=== PATIENT | male | born 1960 | race Caucasian/White ===

== ENCOUNTER 2016-05-19 17:24 | Emergency (ER) | payer MEDICARE ==
[2016-05-19 17:24] VITALS: BMI 25.2
[2016-05-19 20:57] VITALS: RESP 18; O2SAT 98
--- NOTE | 2016-05-19 21:37 | ED PDOC ---
Arrival/HPI - General Chief Complaint: Alcohol Ingestion Time Seen by Provider: 05/19/16 17:49 Historian: Patient - History of Present Illness Narrative History of Present Illness (Text): 05/19/16 21:32 55 y.o. male who was bib EMS because he was found sleeping outside. There was a report of possible intoxication, but the patient denies any alcohol use. The patient however does admit that he got an ambien from someone and fell asleep. He denies any fall or pain or injury or cp or sob or abd pain or n/v or SI. Past Medical History - Infectious Disease Hx of Infectious Diseases: None - Tetanus Immunization Tetanus Immunization: Unknown - Past Medical History Past Medical History: No Previous - Cardiac Hx Cardiac Disorders: No Hx Hypertension: No - Pulmonary Hx Tuberculosis: No - Neurological HX Cerebrovascular Accident: No - Renal Hx Renal Disorder: No - Endocrine/Metabolic Hx Endocrine Disorders: No - Hematological/Oncological Hx Cancer: No - Integumentary Hx Dermatological Disorder: No - Musculoskeletal/Rheumatological Hx Back Pain: Yes Hx Falls: No Other/Comment: R SHOULDER INJ X 2 WEEKS, BACK PAIN SINCE 2006, R KNEE PAIN X 2 MONTHS. - Gastrointestinal Hx Gastrointestinal Disorders: No - Genitourinary/Gynecological Hx Sexually Transmitted Diseases: No - Psychiatric Hx Psychophysiologic Disorder: No Hx Depression: No Hx Emotional Abuse: No Hx Physical Abuse: No Hx Substance Use: Yes (pain pills) - Past Surgical History Past Surgical History: Unable to Obtain - Surgical History Hx Orthopedic Surgery: Yes (back x 2) - Anesthesia Hx Anesthesia: Yes Hx Anesthesia Reactions: No Hx Malignant Hyperthermia: No - Suicidal Assessment Feels Threatened In Home Enviroment: No Family/Social History Family/Social History: No Known Family HX Smoking Status: Heavy Smoker > 10 Cigarettes Daily Hx Alcohol Use: No Hx Substance Use: Yes (pain pills) Hx Substance Use Treatment: No Allergies/Home Meds Allergies/Adverse Reactions: Allergies No Known Allergies Allergy (Verified 05/19/16 18:07) Review of Systems - Review of Systems Respiratory: absent: SOB Cardiovascular: absent: Chest Pain Gastrointestinal: absent: Abdominal Pain, Nausea, Vomiting Genitourinary Male: absent: Dysuria Neurological: absent: Headache, Dizziness, Focal Weakness Psychiatric: absent: Suicidal Ideation Physical Exam Vital Signs Pulse Resp BP Pulse Ox 05/19/16 20:45 88 18 131/92 H 98 05/19/16 18:06 80 20 106/68 95 Temperature: Afebrile Blood Pressure: Normal Pulse: Regular Respiratory Rate: Normal Appearance: Positive for: Well-Appearing, Non-Toxic, Comfortable Pain Distress: None Mental Status: Positive for: other (somnolent) Finger Stick Blood Glucose: 107 - Systems Exam Head: Present: Atraumatic, Normocephalic Pupils: Present: PERRL Conjunctiva: Present: Normal Mouth: Present: Moist Mucous Membranes Pharnyx: Present: Normal. No: ERYTHEMA, EXUDATE Neck: Present: Normal Range of Motion Respiratory/Chest: Present: Clear to Auscultation, Good Air Exchange. No: Respiratory Distress, Accessory Muscle Use Cardiovascular: Present: Regular Rate and Rhythm, Normal S1, S2. No: Murmurs Abdomen: Present: Normal Bowel Sounds. No: Tenderness, Distention, Peritoneal Signs Back: Present: Normal Inspection Upper Extremity: Present: Normal Inspection. No: Cyanosis, Edema Lower Extremity: Present: Normal Inspection. No: Edema Neurological: Present: GCS=15, CN II-XII Intact, Speech Normal Skin: Present: Warm, Dry, Normal Color. No: Rashes Psychiatric: Present: Oriented x 3. No: Suicidal Ideation Medical Decision Making ED Course and Treatment: 05/19/16 21:34 Patient is sleepy here after admittedly taken ambien. Previous records report etoh abuse, but there is no AOB and previous etoh level checks were always negative. Patient just had a negative brain CT on 05/16 and unremarkable labs. No indication for repeat. He is now awake, alert, and oriented x 3 and walking steadily and is safe for discharge. Unable to reach family by phone for additional discussion. - Lab Interpretations Lab Results: Lab Results 05/19/16 18:04: POC Glucose (mg/dL) 107 Disposition/Present on Arrival - Present on Arrival Any Indicators Present on Arrival: No History of DVT/PE: No History of Uncontrolled Diabetes: No Urinary Catheter: No History of Decub. Ulcer: No History Surgical Site Infection Following: None - Disposition Have Diagnosis and Disposition been Completed?: Yes Diagnosis: Substance abuse Disposition: HOME/ ROUTINE Disposition Time: 22:00 Patient Plan: Discharge Condition: GOOD Additional Instructions: Avoid any drug use at all. Follow up with your doctor. Return to the emergency department if any new concerning symptoms. Referrals: [facility] [Outside] - [place] up with [place] [facility] [place] [facility] [place] [facility] [place] - Follow up with primary
[2016-05-19 22:21] VITALS: BP 122/62; PULSE 80
== END 2016-05-19 22:15 | disposition home or self-care (01) ==
LOC: ED 17:24
DX: F19.10 Other psychoactive substance abuse, uncomplicated (principal); F17.210 Nicotine dependence, cigarettes, uncomplicated

== ENCOUNTER 2016-06-16 13:56 | Emergency (ER) | payer MEDICARE ==
[2016-06-16 14:06] VITALS: BMI 25.1
[2016-06-16 14:56] LABS: ADD MANUAL DIFF? NO
[2016-06-16 15:03] LABS: BASO # 0.08 K/mm3 (0.0-2.0); BASO % 1.6 % (0.0-3.0); EOS # 0.2 (0.0-0.7); EOS % 3.2 % (1.5-5.0); GRAN # 2.21 (1.4-6.5); HEMATOCRIT 33.8 % (42.0-52.0); LYMPH # 2.1 (1.2-3.4); MEAN CELL VOLUME 63.1 fL (80.0-105.0); MEAN CORPUSCULAR HEMOGLOBIN 18.5 pg (25.0-35.0); MEAN CORPUSCULAR HGB CONC 29.3 g/dl (31.0-37.0); MONO # 0.5 (0.1-0.6); MONO % 10.2 % (1.0-6.0); PLATELET COUNT 280 10^3/uL (120.0-450.0); RED CELL DISTRIBUTION WIDTH 25.5 % (11.5-14.5)
[2016-06-16 15:06] LABS: URINE BILIRUBIN NEGATIVE (NEGATIVE); URINE BLOOD NEGATIVE (NEGATIVE); URINE GLUCOSE (UA) NEGATIVE (NEGATIVE); URINE KETONE NEGATIVE (NEGATIVE); URINE LEUKOCYTE ESTERASE NEGATIVE Leu/uL (NEGATIVE); URINE PROTEIN NEGATIVE mg/dL (<30 mg/dL); URINE UROBILINOGEN 0.2 E.U./dL (<1 E.U./dL)
[2016-06-16 15:07] LABS: URINE APPEARANCE CLEAR (CLEAR); URINE COLOR LIGHT YELLOW (YELLOW)
[2016-06-16 15:11] LABS: ALB/GLOB RATIO 1.2 (1.1-1.8); ALKALINE PHOSPHATASE 83 U/L (38-133); ALT/SGPT 40 U/L (7-56); AST/SGOT 39 U/L (15-59); BILIRUBIN,TOTAL 0.6 mg/dL (0.2-1.3); BLOOD UREA NITROGEN 15 mg/dL (7-21); CALCIUM 9.4 mg/dL (8.4-10.5); CARBON DIOXIDE 25 mmol/L (21-33); CHLORIDE 106 mmol/L (98-107); GFR AFRICAN-AMERICAN > 60; GLUCOSE,RANDOM 87 mg/dL (70-110); POTASSIUM 4.2 mmol/L (3.6-5.0); SODIUM 138 mmol/L (132-148); TOTAL PROTEIN 7.8 g/dL (5.8-8.3)
[2016-06-16 15:34] LABS: TROPONIN I < 0.01 ng/mL
[2016-06-16 16:13] VITALS: BP 126/85; TEMP 98.3
--- NOTE | 2016-06-16 16:25 | CT ---
PROCEDURE: CT HEAD WITHOUT CONTRAST. HISTORY: fell COMPARISON: Comparison made with CT scan brain 07/23/2015 TECHNIQUE: Axial computed tomography images were obtained through the head/brain without intravenous contrast. Radiation dose: Total exam DLP = 847.34 mGy-cm. This CT exam was performed using one or more of the following dose reduction techniques: Automated exposure control, adjustment of the mA and/or kV according to patient size, and/or use of iterative reconstruction technique. FINDINGS: HEMORRHAGE: No acute parenchymal, subarachnoid or extra-axial hemorrhage. BRAIN: Re- demonstrated are moderate to fairly significant bilateral inferior frontal pole and partially cystic encephalomalacia changes consistent with sequela of old trauma. Gliotic changes extending posteriorly into the parent frontal horn white matter. Mild ex vacuo dilatation of the anterior margins of both frontal horns. Mild generalized volume loss. VENTRICLES: No obstructive hydrocephalus. CALVARIUM: No acute calvarial fractures. There appears to be a small irregularity in the right frontal calvarium that most likely represents old right mamta hole ; clinical correlation with surgical history. . PARANASAL SINUSES: Unrema mild mucosal thickening seen within the right maxillary sinus as well as multiple ethmoid air cells. . MASTOID AIR CELLS: Unremarkable as visualized. No inflammatory changes. OTHER FINDINGS: Bilateral cataract surgery. IMPRESSION: No acute intracranial hemorrhage. No change bilateral inferior frontal pole partially cystic encephalomalacia changes consistent with sequela of old trauma. Mild ex vacuo dilatation of the anterior margins of the frontal horns and mild generalized volume loss. Probable frontal mamta hole. No acute fracture seen.
[2016-06-16 18:39] VITALS: PULSE 79; RESP 18; O2SAT 96
--- NOTE | 2016-06-16 19:07 | ED PDOC ---
Arrival/HPI - General Chief Complaint: Trauma Time Seen by Provider: 06/16/16 14:07 Historian: Patient - History of Present Illness Narrative History of Present Illness (Text): 06/16/16 19:13 A 55 year old male, whose past medical history includes prescribed medication abuse (Tramadol and Gabapentin), brought to the emergency department by EMS because a friend noted that he took ten Tramadols earlier today. Patient admits to taking medications earlier but denies any suicidal ideation. According to EMS , patient fell and it is unclear whether patient hit his head. He denies any SI or headache or cp or sob or abd pain or vomiting. He denies any etoh use. He reports chronic shoulder and leg pain due to previous surgeries when he was young but no acute injuries. Time/Duration: Other (earlier today) Symptom Onset: Sudden Symptom Course: Unchanged Activities at Onset: Rest Context: Home Associated Symptoms (Text): none Past Medical History - Provider Review Nursing Documentation Reviewed: Yes - Infectious Disease Hx of Infectious Diseases: None - Tetanus Immunization Tetanus Immunization: Unknown - Past Medical History Past Medical History: No Previous - Cardiac Hx Cardiac Disorders: No Hx Hypertension: No - Pulmonary Hx Respiratory Disorders: No Hx Tuberculosis: No - Neurological Hx Neurological Disorder: No HX Cerebrovascular Accident: No - HEENT Hx HEENT Disorder: No - Renal Hx Renal Disorder: No - Endocrine/Metabolic Hx Endocrine Disorders: No - Hematological/Oncological Hx Cancer: No - Integumentary Hx Dermatological Disorder: No - Musculoskeletal/Rheumatological Hx Back Pain: Yes Hx Falls: No Other/Comment: BACK PAIN SINCE 2006, R KNEE PAIN - Gastrointestinal Hx Gastrointestinal Disorders: No - Genitourinary/Gynecological Hx Sexually Transmitted Diseases: No - Psychiatric Hx Psychophysiologic Disorder: No Hx Depression: No Hx Emotional Abuse: No Hx Physical Abuse: No Hx Substance Use: Yes (pain pills) - Past Surgical History Past Surgical History: Unable to Obtain - Surgical History Hx Orthopedic Surgery: Yes (back x 2) - Anesthesia Hx Anesthesia: Yes Hx Anesthesia Reactions: No Hx Malignant Hyperthermia: No - Suicidal Assessment Feels Threatened In Home Enviroment: No Family/Social History - Physician Review Nursing Documentation Reviewed: Yes Family/Social History: No Known Family HX Smoking Status: Heavy Smoker > 10 Cigarettes Daily Hx Alcohol Use: No Hx Substance Use: Yes (pain pills) Hx Substance Use Treatment: No Allergies/Home Meds Allergies/Adverse Reactions: Allergies No Known Allergies Allergy (Verified 06/16/16 14:09) Home Medications: Home Meds Medication Instructions Recorded Confirmed Tramadol HCl [Ultram] 50 mg PO BID 06/16/16 06/16/16 Review of Systems - Physician Review All systems were reviewed & negative as marked: Yes - Review of Systems Constitutional: absent: Fevers Respiratory: absent: SOB Cardiovascular: absent: Chest Pain Gastrointestinal: absent: Abdominal Pain, Nausea, Vomiting Musculoskeletal: Other (chronic leg pain and shoulder pain) Neurological: absent: Headache, Dizziness, Focal Weakness Psychiatric: absent: Suicidal Ideation Physical Exam Vital Signs Reviewed: Yes Vital Signs Temp Pulse Resp BP Pulse Ox 06/16/16 18:00 79 18 96 06/16/16 16:12 98.3 F 89 16 126/85 98 06/16/16 13:58 98.9 F 99 H 18 119/76 96 Temperature: Afebrile Blood Pressure: Normal Pulse: Regular Respiratory Rate: Normal Appearance: Positive for: Well-Appearing, Non-Toxic, Comfortable Pain Distress: None Mental Status: Positive for: Alert and Oriented X 3 - Systems Exam Head: Present: Atraumatic, Normocephalic Pupils: Present: PERRL Conjunctiva: Present: Normal Mouth: Present: Moist Mucous Membranes Pharnyx: Present: Normal. No: ERYTHEMA, EXUDATE Neck: Present: Normal Range of Motion Respiratory/Chest: Present: Clear to Auscultation, Good Air Exchange. No: Respiratory Distress, Accessory Muscle Use Cardiovascular: Present: Regular Rate and Rhythm, Normal S1, S2. No: Murmurs Abdomen: Present: Normal Bowel Sounds. No: Tenderness, Distention, Peritoneal Signs Upper Extremity: Present: Normal Inspection. No: Cyanosis, Edema Lower Extremity: Present: Normal Inspection. No: Edema Neurological: Present: GCS=15, CN II-XII Intact, Speech Normal Skin: Present: Warm, Dry, Normal Color. No: Rashes Psychiatric: Present: Alert, Oriented x 3, Other (drowsy but fully arousable) Medical Decision Making ED Course and Treatment: 06/16/16 19:18 Impression: 55 year old male, prescribed medication abuse, took 10 Tramadol earlier today and possible fall; no evidence of head injury. Plan: -- EKG -- CT brain -- Urinalysis -- Labs -- Reassess and disposition Prior Visits: Notes and results from previous visits were reviewed. On 05/19/16 reported to emergency department by EMS because found sleeping outside , possible intoxication, but patient denied any alcohol use. Patient reported having Ambien. Patient was advised to avoid drug use and follow up with doctor. Progress Notes: EKG: Ordered, reviewed, and independently interpreted the EKG. Rate : 98 BPM Rhythm : NSR Interpretation : Normal intervals, normal axis, No ST/T changes Comparison : No previous EKG for comparison. CT brain: Creator : Diallo Jean MD IMPRESSION: No acute intracranial hemorrhage. No change bilateral inferior frontal pole partially cystic encephalomalacia changes consistent with sequela of old trauma. Mild ex vacuo dilatation of the anterior margins of the frontal horns and mild generalized volume loss. Probable frontal mamta hole. No acute fracture seen. Patient initially reported taking Tramadol, but is currently saying he took Gabapentin. 06/16/16 19:36 Labs and imaging are unremarkable as are vitals and EKG. Patient is now fully awake and alert and ambulatory with steady gait with no SI or acute complaints. No indication to keep further in the ED - will d/c to f/u pmd and advised to stop abusing his medications. - Lab Interpretations Lab Results: 06/16/16 14:26 06/16/16 14:26 Lab Results 06/16/16 14:26: Alcohol, Quantitative < 10 06/16/16 14:26: Salicylates < 1 L, Acetaminophen < 10.0 L 06/16/16 14:26: Urine Opiates Screen Negative, Urine Methadone Screen Negative, Ur Barbiturates Screen Negative, Ur Phencyclidine Scrn Negative, Ur Amphetamines Screen Negative, U Benzodiazepines Scrn Negative, U Oth Cocaine Metabols Negative, U Cannabinoids Screen Negative 06/16/16 14:26: Sodium 138, Potassium 4.2, Chloride 106, Carbon Dioxide 25, Anion Gap 11, BUN 15, Creatinine 0.8, Est GFR ( Amer) > 60, Est GFR (Non- Af Amer) > 60, Random Glucose 87, Calcium 9.4, Total Bilirubin 0.6, AST 39, ALT 40, Alkaline Phosphatase 83, Lactate Dehydrogenase 451, Total Creatine Kinase 50 , Troponin I < 0.01, Total Protein 7.8, Albumin 4.2, Globulin 3.6, Albumin/ Globulin Ratio 1.2 06/16/16 14:26: Urine Color Light yellow, Urine Appearance Clear, Urine pH 6.0, Ur Specific [place] 1.010, Urine Protein Negative, Urine Glucose (UA) Negative, Urine Ketones Negative, Urine Blood Negative, Urine Nitrate Negative, Urine Bilirubin Negative, Urine Urobilinogen 0.2, Ur Leukocyte Esterase Negative 06/16/16 14:26: WBC 5.0, RBC 5.36, Hgb 9.9 L, Hct 33.8 L, MCV 63.1 L, MCH 18.5 L , MCHC 29.3 L, RDW 25.5 H, Plt Count 280, Gran % 44.0 L, Lymph % (Auto) 41.0 H, [place] % (Auto) 10.2 H, Eos % (Auto) 3.2, Baso % (Auto) 1.6, Gran # 2.21, Lymph # 2.1, [place] # 0.5, Eos # 0.2, Baso # 0.08 I have reviewed the lab results: Yes - RAD Interpretation Radiology Orders: 06/16/16 14:30 Brain [HEAD W/O CONTRAST] [CT] Stat - EKG Interpretation Interpreted by ED Physician: Yes Type: 12 lead EKG - Scribe Statement The provider has reviewed the documentation as recorded by the Scribe Tari Amador All medical record entries made by the Yesiibe were at my direction and personally dictated by me. I have reviewed the chart and agree that the record accurately reflects my personal performance of the history, physical exam, medical decision making, and the department course for this patient. I have also personally directed, reviewed, and agree with the discharge instructions and disposition. Disposition/Present on Arrival - Present on Arrival Any Indicators Present on Arrival: No History of DVT/PE: No History of Uncontrolled Diabetes: No Urinary Catheter: No History of Decub. Ulcer: No History Surgical Site Infection Following: None - Disposition Have Diagnosis and Disposition been Completed?: Yes Diagnosis: Drug overdose Disposition: HOME/ ROUTINE Disposition Time: 19:10 Patient Plan: Discharge Condition: GOOD Additional Instructions: Stop abusing your medications. Follow up with your primary care doctor. Return to the emergency department if any new concerning symptoms. Referrals: Diallo West MD [Staff Provider] - Follow up with primary
--- NOTE | 2016-06-17 22:15 | CARD ---
APPROVED REPORT EKG Measurement Heart [id number] <Conclusion> Normal sinus rhythm Normal ECG
== END 2016-06-16 19:30 | disposition home or self-care (01) ==
LOC: ED 13:56
DX: T40.4X1A Poisoning by other synthetic narcotics, accidental (unintentional), initial encounter (principal); Y92.009 Unspecified place in unspecified non-institutional (private) residence as the place of occurrence of the external cause; F17.210 Nicotine dependence, cigarettes, uncomplicated
CPT/HCPCS: 70450; 80053; 81003; 82550; 83615; 84484; 85025; 93005; 99283; G0480

== ENCOUNTER 2016-08-08 11:09 | Observation (INO) | payer MEDICARE ==
[2016-08-08 11:22] VITALS: BMI 23.7
[2016-08-08] MEDS ORDERED: Ipratropium 0.02% Inhal Soln (0.5 mg/2.5 ml) UD IH STA (11:31)
[2016-08-08] MEDS ORDERED: guaiFENesin 200 mg/10 ml Syrup UD PO STA (11:31)
[2016-08-08] MEDS ORDERED: Levalbuterol 1.25 MG/3 ML Inhal Soln UD IH STA ×2 (11:31→11:33)
--- NOTE | 2016-08-08 11:47 | ED PDOC ---
Arrival/HPI - General Chief Complaint: Altered Mental Status Time Seen by Provider: 08/08/16 11:12 Historian: Patient, EMS - History of Present Illness Narrative History of Present Illness (Text): 08/08/16 11:49 A 56 year old male, whose past medical history includes chronic back pain, Gabapentin and Tramadol abuse, brought in by EMS. According to EMS, patient was found by a house on [facility] and appeared to be trying to enter a house, claiming that he lived there. Home friend of the court called police. Upon arrival, EMS found patient confused, thinking he lived at that house. No trauma. Patient denies taking any Tramadol, Ambien, Gabapentin, Oxycodone or alcohol. Patient insists he didn't take any medications. Here in emergency department, patient reports to chronic back pain with no changes but denies any chest pain, shortness of breath, abdominal pain, nausea, vomiting, headache or any other complaints at this time. Symptom Onset: Sudden Symptom Course: Unchanged Activities at Onset: Light Context: Street Past Medical History - Provider Review Nursing Documentation Reviewed: Yes - Infectious Disease Hx of Infectious Diseases: None - Tetanus Immunization Tetanus Immunization: Unknown - Past Medical History Past Medical History: No Previous - Cardiac Hx Cardiac Disorders: No Hx Hypertension: No - Pulmonary Hx Respiratory Disorders: No Hx Tuberculosis: No - Neurological Hx Neurological Disorder: No - HEENT Hx HEENT Disorder: No - Renal Hx Renal Disorder: No - Endocrine/Metabolic Hx Endocrine Disorders: Yes Hx Diabetes Mellitus Type 2: Yes - Hematological/Oncological Hx Blood Disorders: No - Integumentary Hx Dermatological Disorder: No - Musculoskeletal/Rheumatological Hx Musculoskeletal Disorders: Yes Hx Back Pain: Yes Hx Falls: No Other/Comment: BACK PAIN SINCE 2006, R KNEE PAIN - Gastrointestinal Hx Gastrointestinal Disorders: No - Genitourinary/Gynecological Hx Genitourinary Disorders: No Hx Sexually Transmitted Diseases: No - Psychiatric Hx Psychophysiologic Disorder: No Hx Depression: No Hx Substance Use: No (pt denies) - Past Surgical History Past Surgical History: Unable to Obtain - Surgical History Hx Orthopedic Surgery: Yes (back x 2) - Anesthesia Hx Anesthesia: Yes Hx Anesthesia Reactions: No Hx Malignant Hyperthermia: No - Suicidal Assessment Feels Threatened In Home Enviroment: No Family/Social History - Physician Review Nursing Documentation Reviewed: Yes Family/Social History: No Known Family HX Smoking Status: Heavy Smoker > 10 Cigarettes Daily Hx Alcohol Use: No (pt denies) Hx Substance Use: No (pt denies) Hx Substance Use Treatment: No Allergies/Home Meds Allergies/Adverse Reactions: Allergies No Known Allergies Allergy (Verified 08/08/16 11:19) Home Medications: Home Meds Medication Instructions Recorded Confirmed Ambien 07/04/16 Gabapentin 600 mg PO Q6 07/04/16 07/04/16 traMADol 07/04/16 oxyCODONE [oxyCODONE Immediate 08/08/16 Release Tab] Review of Systems - Physician Review All systems were reviewed & negative as marked: Yes - Review of Systems Respiratory: absent: SOB Cardiovascular: absent: Chest Pain Gastrointestinal: absent: Abdominal Pain, Nausea, Vomiting Musculoskeletal: Back Pain (chronic) Neurological: absent: Headache Physical Exam Vital Signs Reviewed: Yes Vital Signs Temp Pulse Resp BP Pulse Ox 08/08/16 12:16 96 H 16 129/91 H 96 08/08/16 11:19 98.4 F 104 H 16 132/85 92 L Temperature: Afebrile Blood Pressure: Normal Pulse: Tachycardic Respiratory Rate: Normal Appearance: Positive for: Ill-Appearing Pain Distress: None Mental Status: Positive for: Alert and Oriented X 3, other (mumbling speech) Finger Stick Blood Glucose: 182 - Systems Exam Head: Present: Atraumatic, Normocephalic Pupils: Present: PERRL Conjunctiva: Present: Normal Mouth: Present: Moist Mucous Membranes Pharnyx: Present: Normal. No: ERYTHEMA Neck: Present: Normal Range of Motion Respiratory/Chest: Present: Wheezes (at bases), Rhonchi (diffuse). No: Respiratory Distress, Accessory Muscle Use Cardiovascular: Present: Regular Rate and Rhythm, Normal S1, S2. No: Murmurs Abdomen: Present: Normal Bowel Sounds. No: Tenderness, Distention, Peritoneal Signs Back: Present: Normal Inspection Upper Extremity: Present: Normal Inspection. No: Cyanosis, Edema Lower Extremity: Present: Normal Inspection. No: Edema Neurological: Present: GCS=15, CN II-XII Intact. No: Speech Normal (mumbling) Skin: Present: Warm, Dry, Normal Color. No: Rashes Psychiatric: Present: Alert, Oriented x 3, Normal Insight, Normal Concentration Medical Decision Making ED Course and Treatment: 08/08/16 11:38 Impression: A 56 year old male confused with possible Tramadol abuse. Differential Diagnosis included but are not limited to: Tramadol/substance abuse vs. hypercapnia vs. metabolic abnormality Plan: -- EKG -- chest xray -- labs -- Robitussin, Atrovent, Solumedrol, Xopenex -- Reassess and disposition Prior Visits: Notes and results from previous visits were reviewed. Patient last reported to the emergency department on 07/03/16 for evaluation of prescribed medication abuse. Progress Notes: 08/08/16 12:43 EKG: Ordered, reviewed, and independently interpreted the EKG. Rate : 97 BPM Rhythm : NSR Interpretation : Nonspecific T wave changes, normal intervals, normal axis Comparison : T wave changes slightly different from EKG on 07/03/16 08/08/16 12:23 chest xray Creator : Nydia Novak MD IMPRESSION: Bibasilar atelectasis. No lobar pneumonia. 08/08/16 13:45 Labs showing dehydration and hypoxia on on ABG. D-dimer sent and is pending. Creatinine is up to 1.7 from normal level. CXR read as noted - will need to be treated for asthmatic bronchitis vs COPD with nebs, steroids, and abx. Patient will need further observation in the hospital. Case was discussed with Dr. West who said to place on the hospitalist service. Case discussed with Dr. Chaidez for placement on the hospitalist service. - Lab Interpretations Lab Results: 08/08/16 12:00 08/08/16 12:00 Lab Results 08/08/16 12:00: Alcohol, Quantitative < 10 08/08/16 12:00: Sodium 142, Chloride 107, Potassium 4.6, Carbon Dioxide 25, Anion Gap 15, BUN 33 H, Creatinine 1.7 H, Est GFR ( Amer) 51, Est GFR ( Non-Af Amer) 42, Random Glucose 122 H, Calcium 9.9, Total Bilirubin 0.8, AST 35 , ALT 36, Alkaline Phosphatase 82, Lactate Dehydrogenase 415, Total Creatine Kinase 422 H, CK-MB (CK-2) 15.3 H, CK-MB (CK-2) % 3.6 H, Troponin I < 0.01, NT- Pro-B Natriuret Pep 222, Total Protein 8.4 H, Albumin 4.6, Globulin 3.8, Albumin /Globulin Ratio 1.2 08/08/16 12:00: PT 12.4 H, INR 1.15 H, APTT 27.1 08/08/16 12:00: WBC 10.6 D, RBC 5.95, Hgb 13.8 L, Hct 42.3, MCV 71.1 L, MCH 23.2 L, MCHC 32.6, RDW 28.0 H, Plt Count 255, Gran % 69.7 H, Lymph % (Auto) 17.4 L, Garden % (Auto) 12.2 H, Eos % (Auto) 0.2 L, Baso % (Auto) 0.5, Gran # 7.40 H, Lymph # 1.9, Garden # 1.3 H, Eos # 0.0, Baso # 0.05 08/08/16 11:45: pCO2 32 L, pO2 54.0 L, HCO3 19.8 L, ABG pH 7.40, ABG Total CO2 20.8 L, ABG O2 Saturation 88.2 L, ABG Base Excess -4.1 L, ABG Potassium 3.5 L, Sodium 140.0, Chloride 110.0 H, Glucose 118 H, Lactate 0.9, FiO2 21.0, Arterial Blood Potassium 3.5 L I have reviewed the lab results: Yes - RAD Interpretation Radiology Orders: 08/08/16 11:30 CHEST PORTABLE [RAD] Stat 08/08/16 13:08 Brain [HEAD W/O CONTRAST] [CT] Stat - EKG Interpretation Interpreted by ED Physician: Yes Type: 12 lead EKG - Medication Orders Current Medication Orders: Levofloxacin/Dextrose (Levaquin 750mg) 750 mg in 150 mls @ 100 mls/hr IVPB STAT STA Stop: 08/08/16 15:07 Discontinued Medications Guaifenesin (Robitussin) 400 mg PO ONCE STA Stop: 08/08/16 11:32 Last Admin: 08/08/16 11:56 Dose: 400 mg Sodium Chloride (Sodium Chloride 0.9%) 1,000 mls @ 999 mls/hr IV .Q1H1M STA Stop: 08/08/16 13:24 Last Admin: 08/08/16 12:46 Dose: 999 mls/hr Ipratropium [place] (Atrovent) 0.5 mg IH STAT STA Stop: 08/08/16 11:32 Last Admin: 08/08/16 11:56 Dose: 0.5 mg Levalbuterol HCl (Xopenex) 1.25 mg IH STAT STA Stop: 08/08/16 11:32 Last Admin: 08/08/16 11:56 Dose: 1.25 mg Levalbuterol HCl (Xopenex) 1.25 mg IH STAT STA Stop: 08/08/16 11:34 Last Admin: 08/08/16 11:57 Dose: 1.25 mg Methylprednisolone (Solu-Medrol) 125 mg IVP STAT STA Stop: 08/08/16 11:32 Last Admin: 08/08/16 11:56 Dose: 125 mg - Sneha Statement The provider has reviewed the documentation as recorded by the Sneha Amador All medical record entries made by the Sneha were at my direction and personally dictated by me. I have reviewed the chart and agree that the record accurately reflects my personal performance of the history, physical exam, medical decision making, and the department course for this patient. I have also personally directed, reviewed, and agree with the discharge instructions and disposition. Disposition/Present on Arrival - Present on Arrival Any Indicators Present on Arrival: No History of DVT/PE: No History of Uncontrolled Diabetes: No Urinary Catheter: No History of Decub. Ulcer: No History Surgical Site Infection Following: None - Disposition Have Diagnosis and Disposition been Completed?: Yes Diagnosis: Altered mental status, Prerenal azotemia, Hypoxia Disposition: HOSPITALIZED Disposition Time: 12:25 Patient Plan: Observation Condition: FAIR
[2016-08-08 11:51] LABS: ARTERIAL BLOOD GAS HCO3 19.8 mmol/L (21-28)
[2016-08-08 12:04] LABS: ADD MANUAL DIFF? NO
[2016-08-08 12:07] LABS: BASO # 0.05 K/mm3 (0.0-2.0); BASO % 0.5 % (0.0-3.0); EOS % 0.2 % (1.5-5.0); GRAN % 69.7 % (50.0-68.0); HEMATOCRIT 42.3 % (42.0-52.0); LYMPH # 1.9 (1.2-3.4); LYMPH % 17.4 % (22.0-35.0); MEAN CELL VOLUME 71.1 fL (80.0-105.0); MEAN CORPUSCULAR HEMOGLOBIN 23.2 pg (25.0-35.0); MEAN CORPUSCULAR HGB CONC 32.6 g/dl (31.0-37.0); MONO # 1.3 (0.1-0.6); MONO % 12.2 % (1.0-6.0); PLATELET COUNT 255 10^3/uL (120.0-450.0); WHITE BLOOD COUNT 10.6 10^3/ul (4.5-11.0)
[2016-08-08 12:18] LABS: INR 1.15 (0.93-1.08); PARTIAL THROMBOPLASTIN TIME 27.1 Seconds (23.7-30.8)
[2016-08-08 12:21] LABS: ALB/GLOB RATIO 1.2 (1.1-1.8); ALKALINE PHOSPHATASE 82 U/L (38-133); ALT/SGPT 36 U/L (7-56); AST/SGOT 35 U/L (15-59); BILIRUBIN,TOTAL 0.8 mg/dL (0.2-1.3); BLOOD UREA NITROGEN 33 mg/dL (7-21); CALCIUM 9.9 mg/dL (8.4-10.5); CARBON DIOXIDE 25 mmol/L (21-33); CHLORIDE 107 mmol/L (98-107); GFR AFRICAN-AMERICAN 51; GLUCOSE,RANDOM 122 mg/dL (70-110); POTASSIUM 4.6 mmol/L (3.6-5.0); SODIUM 142 mmol/L (132-148); TOTAL PROTEIN 8.4 g/dL (5.8-8.3)
--- NOTE | 2016-08-08 12:23 | RAD ---
HISTORY: alt ms, hypoxia COMPARISON: No prior. FINDINGS: LUNGS: There is bibasilar atelectasis. No focal consolidation. The lungs are well inflated. PLEURA: No significant pleural effusion identified, no pneumothorax apparent. CARDIOVASCULAR: Normal. OSSEOUS STRUCTURES: No significant abnormalities. VISUALIZED UPPER ABDOMEN: Normal. OTHER FINDINGS: None. IMPRESSION: Bibasilar atelectasis. No lobar pneumonia.
[2016-08-08] MEDS ORDERED: Sodium Chloride 0.9% 1,000 ML IV STA (12:24)
[2016-08-08 12:34] LABS: TROPONIN I < 0.01 ng/mL
[2016-08-08] MEDS ORDERED: levoFLOXacin 750 mg in D5W 750 MG/150 ML BAG IVPB STA (13:38)
--- NOTE | 2016-08-08 13:58 | CT ---
PROCEDURE: CT HEAD WITHOUT CONTRAST. HISTORY: Altered mental status COMPARISON: None available. TECHNIQUE: Axial computed tomography images were obtained through the head/brain without intravenous contrast. Radiation dose: Total exam DLP = 688.90 mGy-cm. This CT exam was performed using one or more of the following dose reduction techniques: Automated exposure control, adjustment of the mA and/or kV according to patient size, and/or use of iterative reconstruction technique. FINDINGS: HEMORRHAGE: No intracranial hemorrhage. BRAIN: There is redemonstration of cystic encephalomalacia in bilateral paramedian inferior frontal lobes and anterior temporal lobes, sequela of remote trauma. VENTRICLES: There is mild global parenchymal volume loss and proportionate enlargement of the ventricles and cortical sulci. CALVARIUM: The skull base and calvarium are normal. PARANASAL SINUSES: Predominantly clear. MASTOID AIR CELLS: Predominantly clear. OTHER FINDINGS: None. IMPRESSION: No acute intracranial abnormality. 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 Mild global parenchymal volume loss, slightly advanced for the patient's age.
[2016-08-08] MEDS ORDERED: guaiFENesin 100 mg/5 ml Syrup UD PO PRN (14:11)
[2016-08-08] MEDS: MethylPREDNISolone 40 mg Vial IVP SCH ×2 (14:46→22:06)
[2016-08-08] MEDS: Albuterol-Ipratrop 3 mg / 0.5 (3 ml) UD IH SCH ×4 (14:46→19:51)
[2016-08-08] MEDS: Sodium Chloride 0.9% 1,000 ML IV SCH (14:47)
--- NOTE | 2016-08-08 15:13 | CARD ---
APPROVED REPORT EKG Measurement Heart [id number] <Conclusion> Sinus rhythm with fusion complexes Nonspecific T wave abnormality Abnormal ECG
--- NOTE | 2016-08-08 17:07 | CP.PCM.HP ---
<Chad Alonso - Last Filed: 08/08/16 16:59> History of Present Illness - History of Present Illness History of Present Illness: This is a 56 y/o male with hx of chronic pain brought to ED with altered mental status. EMS note patient was found on [facility] confused and trying enter a home that was not his. The patient has a hx of Tramadol, Gabapenin and Ambien abuse. Patient initially denied taking these medications but later admitted to taking Gabapentin today. Patient relates that he has chronic back and shoulder pain and that he is unhappy with his life and that this is why he abuses these medications. He denies abusing other illicit drugs including narcotics, IV drugs , cocaine or alcohol. He denies head trauma or other bodily trauma. CT head is negative for acute findings in the ED. Patient is also complaining of a productive cough and shortness of breath. He denies fever , chills, abd pain, n/ v/d. PMH: chronic back pain, polysubstance abuse Social HX: smokes 1ppd for >10years, occasional alcohol use, hx of abuse of Gabapenin, tramadol, Ambien. PMD: Dr. West. Present on Admission - Present on Admission Any Indicators Present on Admission: No Review of Systems - Constitutional Constitutional: absent: Chills, Fever - EENT Eyes: absent: Blurred Vision, Change in Vision Nose/Mouth/Throat: absent: Nasal Congestion, Nasal Discharge, Sore Throat - Cardiovascular Cardiovascular: Chest Pain. absent: Dyspnea, Palpitations, Syncope - Respiratory Respiratory: Cough, Dyspnea. absent: Hemoptysis - Gastrointestinal Gastrointestinal: absent: Diarrhea, Melena, Nausea - Musculoskeletal Musculoskeletal: Back Pain Additional comments: left shoulder pain - Integumentary Integumentary: absent: Pruritus, Rash - Neurological Neurological: absent: Dizziness, Numbness, Focal Weakness - Psychiatric Psychiatric: absent: Anxiety, Depression - Endocrine Endocrine: absent: Fatigue, Palpitations Past Patient History - Infectious Disease Hx of Infectious Diseases: None - Tetanus Immunizations Tetanus Immunization: Unknown - Past Medical History & Family History Past Medical History?: Yes - Past Social History Smoking Status: Heavy Smoker > 10 Cigarettes Daily - CARDIAC Hx Cardiac Disorders: No Hx Hypertension: No - PULMONARY Hx Respiratory Disorders: No Hx Tuberculosis: No - NEUROLOGICAL Hx Neurological Disorder: No - HEENT Hx HEENT Problems: No - RENAL Hx Chronic Kidney Disease: No - ENDOCRINE/METABOLIC Hx Endocrine Disorders: Yes Hx Diabetes Mellitus Type 2: Yes - HEMATOLOGICAL/ONCOLOGICAL Hx Blood Disorders: No - INTEGUMENTARY Hx Dermatological Problems: No - MUSCULOSKELETAL/RHEUMATOLOGICAL Hx Musculoskeletal Disorders: Yes Hx Back Pain: Yes Hx Falls: No Other/Comment: BACK PAIN SINCE 2006, R KNEE PAIN - GASTROINTESTINAL Hx Gastrointestinal Disorders: No - GENITOURINARY/GYNECOLOGICAL Hx Genitourinary Disorders: No Hx Sexually Transmitted Disorders: No - PSYCHIATRIC Hx Psychophysiologic Disorder: No Hx Depression: No Hx Substance Use: No (pt denies) - SURGICAL HISTORY Hx Orthopedic Surgery: Yes (back x 2) - ANESTHESIA Hx Anesthesia: Yes Hx Anesthesia Reactions: No Hx Malignant Hyperthermia: No Meds Allergies/Adverse Reactions: Allergies Allergy/AdvReac Type Severity Reaction Status Date / Time No Known Allergies Allergy Verified 08/08/16 11:19 Physical Exam - Constitutional Appears: Non-toxic, No Acute Distress - Head Exam Head Exam: ATRAUMATIC, NORMOCEPHALIC - Eye Exam Eye Exam: EOMI, PERRL - ENT Exam ENT Exam: Mucous Membranes Dry - Neck Exam Neck exam: Positive for: Full Rom. Negative for: Meningismus - Respiratory Exam Respiratory Exam: Rhonchi. absent: Clear to Auscultation Bilateral, Respiratory Distress - Cardiovascular Exam Cardiovascular Exam: REGULAR RHYTHM, +S1, +S2 - GI/Abdominal Exam GI & Abdominal Exam: Normal Bowel Sounds, Soft - Extremities Exam Extremities exam: Positive for: normal inspection. Negative for: calf tenderness, pedal edema - Neurological Exam Neurological exam: Alert - Psychiatric Exam Psychiatric exam: Agitated - Skin Skin Exam: Dry, Warm Results - Vital Signs Recent Vital Signs: Last Vital Signs Temp 98.4 F 08/08/16 11:19 Pulse 100 H 08/08/16 16:47 Resp 18 08/08/16 16:47 BP 122/76 08/08/16 16:47 Pulse Ox 95 08/08/16 16:47 - Labs Result Diagrams: 08/08/16 12:00 08/08/16 12:00 Labs: Laboratory Results - last 24 hr 08/08/16 13:54 D-Dimer, Quantitative 0.34 Assessment & Plan - Assessment and Plan (Free Text) Assessment: 56 y/o male presenting with altered mental status 2/2 likely acute polysubstance intoxication. AMS - pharmacy contacted - patient is currently taking Gabapenin, Ambien, Tramadol - aspiration precautions - seizure precautions - psych consult cough, dyspnea likely 2/2 undiagnosed COPD - duonebs q6 - pulmicort [id number] 500mg daily - solumedrol 40mg IV q8 - Robitussin 400mg TANNER 2/2 prerenal azotemia - continue IVF - monitor renal function PPX - protonix 40 daily - heparin sc BID Patient seen and discussed with attending. <Anurag Chaidez - Last Filed: 08/08/16 18:53> Results - Vital Signs Recent Vital Signs: Last Vital Signs Temp 98.4 F 08/08/16 11:19 Pulse 100 H 08/08/16 16:47 Resp 18 08/08/16 16:47 BP 122/76 08/08/16 16:47 Pulse Ox 95 08/08/16 16:47 - Labs Result Diagrams: 08/08/16 12:00 08/08/16 12:00 Labs: Laboratory Results - last 24 hr 08/08/16 08/08/16 13:54 17:52 D-Dimer, Quantitative 0.34 POC Glucose (mg/dL) 200 H Attending/Attestation - Attestation I have personally seen and examined this patient.: Yes I have fully participated in the care of the patient.: Yes I have reviewed all pertinent clinical information: Yes Notes (Text): 08/08/16 18:50 attending note; Patient seen and examined with resident in ER. Patient is lethargic. on oxygen nasal cannula. Patient complaining of cough and shortness of breath. Patient is a 56 y/o male with hx of chronic pain brought to ED with altered mental status. EMS note patient was found on [facility] confused and trying enter a home that was not his. The patient has a hx of Tramadol, Gabapenin and Ambien abuse. 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 No acute CVA. Lethargy is mostly secondary to tramadol and Neurontin use. Monitor closely. Psychiatric evaluation requested. COPD exacerbation; continue oxygen, DuoNeb, IV Solu-Medrol. Continue by mouth Levaquin. acute kidney injury; continue IV fluids. Monitor closely. Upon discharge the patient will follow-up with PMD . 08/08/16 18:51 08/08/16 18:53
[2016-08-08] MEDS: Arformoterol 15 mcg/2 ml Inh Sol IH SCH (19:51)
[2016-08-08] MEDS: Budesonide 0.25 mg/2 ml Inhal Susp UD IH SCH (19:52)
[2016-08-08 20:38] VITALS: RESP 20
[2016-08-08] MEDS: Insulin Lispro 1 UNITS/0.01 ML SC SCH (22:00)
[2016-08-09] MEDS: Albuterol-Ipratrop 3 mg / 0.5 (3 ml) UD IH SCH ×2 (02:27→08:42)
[2016-08-09] MEDS: Sodium Chloride 0.9% 1,000 ML IV SCH (05:00)
[2016-08-09] MEDS: MethylPREDNISolone 40 mg Vial IVP SCH (05:42)
[2016-08-09] MEDS ORDERED: Pantoprazole 40 mg EC Tab PO SCH (06:00)
[2016-08-09] MEDS: Insulin Lispro 1 UNITS/0.01 ML SC SCH (08:30)
[2016-08-09] MEDS: Budesonide 0.25 mg/2 ml Inhal Susp UD IH SCH (08:41)
[2016-08-09] MEDS: Arformoterol 15 mcg/2 ml Inh Sol IH SCH (08:41)
[2016-08-09 08:55] VITALS: BP 120/78; PULSE 89; TEMP 98.8; O2SAT 94
[2016-08-09 09:40] LABS: HEMATOCRIT 40.3 % (42.0-52.0); MEAN CELL VOLUME 71.8 fL (80.0-105.0); PLATELET COUNT 256 10^3/uL (120.0-450.0); WHITE BLOOD COUNT 17.3 10^3/ul (4.5-11.0)
[2016-08-09 09:42] LABS: ADD MANUAL DIFF? YES
[2016-08-09 09:49] LABS: ALB/GLOB RATIO 1.1 (1.1-1.8); ALKALINE PHOSPHATASE 72 U/L (38-133); ALT/SGPT 30 U/L (7-56); AST/SGOT 25 U/L (15-59); BILIRUBIN,TOTAL 0.5 mg/dL (0.2-1.3); BLOOD UREA NITROGEN 18 mg/dL (7-21); CALCIUM 9.3 mg/dL (8.4-10.5); CARBON DIOXIDE 22 mmol/L (21-33); CHLORIDE 110 mmol/L (98-107); GFR AFRICAN-AMERICAN > 60; GLUCOSE,RANDOM 137 mg/dL (70-110); POTASSIUM 4.2 mmol/L (3.6-5.0); SODIUM 141 mmol/L (132-148); TOTAL PROTEIN 7.8 g/dL (5.8-8.3)
[2016-08-09] MEDS ORDERED: levoFLOXacin 500 MG TAB PO SCH (10:00)
[2016-08-09 10:24] LABS: BAND 7 % (0-2)
[2016-08-09 10:25] LABS: ANISOCYTOSIS 1+; MICROCYTOSIS 1+; NEUTROPHIL 88 % (50.0-70.0); PLATELET ESTIMATE NORMAL (NORMAL)
--- NOTE | 2016-08-09 12:41 | CP.PCM.DIS ---
<Evin Buckley - Last Filed: 08/09/16 15:31> Provider - Provider Date of Admission: 08/08/16 13:16 Attending physician: Anurag Chaidez MD Consults: Psych - Dr. Luna Time Spent in preparation of Discharge (in minutes): 45 Hospital Course - Lab Results Lab Results: Most Recent Lab Values WBC 17.3 10^3/ul (4.5-11.0) H D 08/09/16 08:00 RBC 5.61 10^6/uL (3.5-6.1) 08/09/16 08:00 Hgb 12.9 gm/dL (14.0-18.0) L 08/09/16 08:00 Hct 40.3 % (42.0-52.0) L 08/09/16 08:00 MCV 71.8 fL (80.0-105.0) L 08/09/16 08:00 MCH 23.0 pg (25.0-35.0) L 08/09/16 08:00 MCHC 32.0 g/dl (31.0-37.0) 08/09/16 08:00 RDW 28.0 % (11.5-14.5) H 08/08/16 12:00 Plt Count 256 10^3/uL (120.0-450.0) 08/09/16 08:00 Gran % 69.7 % (50.0-68.0) H 08/08/16 12:00 Lymph % (Auto) 17.4 % (22.0-35.0) L 08/08/16 12:00 Fountain % (Auto) 12.2 % (1.0-6.0) H 08/08/16 12:00 Eos % (Auto) 0.2 % (1.5-5.0) L 08/08/16 12:00 Baso % (Auto) 0.5 % (0.0-3.0) 08/08/16 12:00 Gran # 7.40 (1.4-6.5) H 08/08/16 12:00 Lymph # 1.9 (1.2-3.4) 08/08/16 12:00 Fountain # 1.3 (0.1-0.6) H 08/08/16 12:00 Eos # 0.0 (0.0-0.7) 08/08/16 12:00 Baso # 0.05 K/mm3 (0.0-2.0) 08/08/16 12:00 Neutrophils % (Manual) 88 % (50.0-70.0) H 08/09/16 08:00 Band Neutrophils % 7 % (0-2) H 08/09/16 08:00 Lymphocytes % (Manual) 4 % (22.0-35.0) L 08/09/16 08:00 Monocytes % (Manual) 1 % (1.0-6.0) 08/09/16 08:00 Platelet Evaluation Normal (NORMAL) 08/09/16 08:00 Anisocytosis (manual) 1+ 08/09/16 08:00 Microcytosis (manual) 1+ 08/09/16 08:00 PT 12.4 Seconds (9.9-11.8) H 08/08/16 12:00 INR 1.15 (0.93-1.08) H 08/08/16 12:00 APTT 27.1 Seconds (23.7-30.8) 08/08/16 12:00 D-Dimer, Quantitative 0.34 mg/L FEU (0-0.50) 08/08/16 13:54 pCO2 32 mm/Hg (35-45) L 08/08/16 11:45 pO2 54.0 mm/Hg (80-100) L 08/08/16 11:45 HCO3 19.8 mmol/L (21-28) L 08/08/16 11:45 ABG pH 7.40 (7.35-7.45) 08/08/16 11:45 ABG Total CO2 20.8 mmol.L (22-28) L 08/08/16 11:45 ABG O2 Saturation 88.2 % (95-98) L 08/08/16 11:45 ABG Base Excess -4.1 mmol/L (-2.0-3.0) L 08/08/16 11:45 ABG Potassium 3.5 mmol/L (3.6-5.2) L 08/08/16 11:45 Sodium 140.0 mmol/L (132-148) 08/08/16 11:45 Chloride 110.0 mmol/L (98-107) H 08/08/16 11:45 Glucose 118 mg/dl (75-110) H 08/08/16 11:45 Lactate 0.9 mmol/L (0.7-2.1) 08/08/16 11:45 FiO2 21.0 % 08/08/16 11:45 Sodium 141 mmol/L (132-148) 08/09/16 08:00 Potassium 4.2 mmol/L (3.6-5.0) 08/09/16 08:00 Chloride 110 mmol/L (98-107) H 08/09/16 08:00 Carbon Dioxide 22 mmol/L (21-33) 08/09/16 08:00 Anion Gap 13 (10-20) 08/09/16 08:00 BUN 18 mg/dL (7-21) 08/09/16 08:00 Creatinine 0.8 mg/dL (0.5-1.4) 08/09/16 08:00 Est GFR ( Amer) > 60 08/09/16 08:00 Est GFR (Non-Af Amer) > 60 08/09/16 08:00 POC Glucose (mg/dL) 115 mg/dL (65-110) H 08/09/16 11:12 Random Glucose 137 mg/dL (70-110) H 08/09/16 08:00 Calcium 9.3 mg/dL (8.4-10.5) 08/09/16 08:00 Total Bilirubin 0.5 mg/dL (0.2-1.3) 08/09/16 08:00 AST 25 U/L (15-59) 08/09/16 08:00 ALT 30 U/L (7-56) 08/09/16 08:00 Alkaline Phosphatase 72 U/L (38-133) 08/09/16 08:00 Lactate Dehydrogenase 415 U/L (333-699) 08/08/16 12:00 Total Creatine Kinase 422 U/L (35-230) H 08/08/16 12:00 CK-MB (CK-2) 15.3 ng/mL (0.0-3.6) H 08/08/16 12:00 CK-MB (CK-2) % 3.6 % (2.5-3.0) H 08/08/16 12:00 Troponin I < 0.01 ng/mL 08/08/16 12:00 NT-Pro-B Natriuret Pep 222 pg/mL (0-450) 08/08/16 12:00 Total Protein 7.8 g/dL (5.8-8.3) 08/09/16 08:00 Albumin 4.1 g/dL (3.0-4.8) 08/09/16 08:00 Globulin 3.7 gm/dL 08/09/16 08:00 Albumin/Globulin Ratio 1.1 (1.1-1.8) 08/09/16 08:00 Arterial Blood Potassium 3.5 mmol/L (3.6-5.2) L 08/08/16 11:45 Urine Opiates Screen Negative (NEGATIVE) 08/08/16 13:00 Urine Methadone Screen Negative (NEGATIVE) 08/08/16 13:00 Ur Barbiturates Screen Negative (NEGATIVE) 08/08/16 13:00 Ur Phencyclidine Scrn Negative (NEGATIVE) 08/08/16 13:00 Ur Amphetamines Screen Negative (NEGATIVE) 08/08/16 13:00 U Benzodiazepines Scrn Negative (NEGATIVE) 08/08/16 13:00 U Oth Cocaine Metabols Negative (NEGATIVE) 08/08/16 13:00 U Cannabinoids Screen Negative (NEGATIVE) 08/08/16 13:00 Alcohol, Quantitative < 10 mg/dL (0-10) 08/08/16 12:00 - Hospital Course Hospital Course: This is a 56 y/o male with hx of chronic pain brought to ED with altered mental status. EMS note patient was found on [facility] confused and trying enter a home that was not his. The patient has a hx of Tramadol, Gabapenin and Ambien abuse. Patient initially denied taking these medications but later admitted to taking Gabapentin on the day of admission. Patient relates that he has chronic back and shoulder pain and that he is unhappy with his life and that this is why he abuses these medications. He denies abusing other illicit drugs including narcotics, IV drugs, cocaine or alcohol. He denies head trauma or other bodily trauma. CT head is negative for acute findings in the ED. Patient is also complaining of a productive cough and shortness of breath. Pt was admitted for altered mental status secondary to likely acute polysubstance intoxication. Pt was placed on aspiration precautions and seizure precautions. A psych consult was placed with Dr. Luna. Pt had reported a productive cough and dyspnea likely secondary to underlying undiagnosed COPD. Pt was placed on duonebs nebulizers, pulmicort, and antibiotics with levofloxacin 500mg daily, as well as solumedrol 40mg IV and Robitussin 400mg. Pt's breathing improved. Pt was hydrated on account of slight pre renal azotemia. Pt was seen and examined at bedside. He was AAOx 3 and wished to go home. He had been tolerating diet and ambulating. He was moving his bowels and bladder regularly. His breathing had improved, however still noted a cough. He, again wished to go home with fu with PMD Dr. Lopez. He stated he had an appointment this afternoon. Pt upon dc is to fu with PMD Dr. Lopez. All prescriptions were called into pt's pharmacy [facility]. Pt was educated on tobacco cessation and polypharmacy. Discharge Exam - Head Exam Head Exam: ATRAUMATIC, NORMOCEPHALIC - Eye Exam Eye Exam: EOMI, Normal appearance, PERRL Pupil Exam: NORMAL ACCOMODATION, PERRL - ENT Exam ENT Exam: Mucous Membranes Moist - Respiratory Exam Respiratory Exam: Rhonchi, NORMAL BREATHING PATTERN - Cardiovascular Exam Cardiovascular Exam: REGULAR RHYTHM, +S1, +S2 - GI/Abdominal Exam GI & Abdominal Exam: Normal Bowel Sounds, Soft. absent: Tenderness - Extremities Exam Extremities exam: normal inspection - Neurological Exam Neurological exam: Alert, CN II-XII Intact, Normal Gait, Oriented x3, Reflexes Normal - Psychiatric Exam Psychiatric exam: Normal Affect, Normal Mood - Skin Skin Exam: Dry, Intact, Normal Color, Warm Discharge Plan - Discharge Medications Prescriptions: Albuterol/Ipratropium [Duoneb 3 MG/3 Ml-0.5 MG/3 Ml 3 Ml] 1 ea IH Q6 #1 neb Fluticasone/Salmeterol 250/50 [Advair Diskus] 1 puff IH Q12 #1 puff guaiFENesin [Robitussin] 100 mg PO Q4H PRN #10 PRN Reason: Cough Levofloxacin [Levaquin] 500 mg PO DAILY #5 tablet Methylprednisolone [Medrol Dose Pack (21 tabs)] See Taper PO DAILY #21 mg Pantoprazole Sodium [Protonix] 40 mg PO DAILY #30 tablet.dr - Follow Up Plan Condition: FAIR Disposition: HOME/ ROUTINE Instructions: COPD (Chronic Obstructive Pulmonary Disease) (GEN), Altered Mental Status (GEN) Additional Instructions: 1. Follow up with Dr. lopez today. 2. Stop smoking. 3. Stop ambien and tramadol use. 4. Taper and discontinue pain meds. <Anurag Chaidez - Last Filed: 08/09/16 15:43> Provider - Provider Date of Admission: 08/08/16 13:16 Attending physician: Anurag Chaidez MD Hospital Course - Lab Results Lab Results: Most Recent Lab Values WBC 17.3 10^3/ul (4.5-11.0) H D 08/09/16 08:00 RBC 5.61 10^6/uL (3.5-6.1) 08/09/16 08:00 Hgb 12.9 gm/dL (14.0-18.0) L 08/09/16 08:00 Hct 40.3 % (42.0-52.0) L 08/09/16 08:00 MCV 71.8 fL (80.0-105.0) L 08/09/16 08:00 MCH 23.0 pg (25.0-35.0) L 08/09/16 08:00 MCHC 32.0 g/dl (31.0-37.0) 08/09/16 08:00 RDW 28.0 % (11.5-14.5) H 08/08/16 12:00 Plt Count 256 10^3/uL (120.0-450.0) 08/09/16 08:00 Gran % 69.7 % (50.0-68.0) H 08/08/16 12:00 Lymph % (Auto) 17.4 % (22.0-35.0) L 08/08/16 12:00 Fountain % (Auto) 12.2 % (1.0-6.0) H 08/08/16 12:00 Eos % (Auto) 0.2 % (1.5-5.0) L 08/08/16 12:00 Baso % (Auto) 0.5 % (0.0-3.0) 08/08/16 12:00 Gran # 7.40 (1.4-6.5) H 08/08/16 12:00 Lymph # 1.9 (1.2-3.4) 08/08/16 12:00 Fountain # 1.3 (0.1-0.6) H 08/08/16 12:00 Eos # 0.0 (0.0-0.7) 08/08/16 12:00 Baso # 0.05 K/mm3 (0.0-2.0) 08/08/16 12:00 Neutrophils % (Manual) 88 % (50.0-70.0) H 08/09/16 08:00 Band Neutrophils % 7 % (0-2) H 08/09/16 08:00 Lymphocytes % (Manual) 4 % (22.0-35.0) L 08/09/16 08:00 Monocytes % (Manual) 1 % (1.0-6.0) 08/09/16 08:00 Platelet Evaluation Normal (NORMAL) 08/09/16 08:00 Anisocytosis (manual) 1+ 08/09/16 08:00 Microcytosis (manual) 1+ 08/09/16 08:00 PT 12.4 Seconds (9.9-11.8) H 08/08/16 12:00 INR 1.15 (0.93-1.08) H 08/08/16 12:00 APTT 27.1 Seconds (23.7-30.8) 08/08/16 12:00 D-Dimer, Quantitative 0.34 mg/L FEU (0-0.50) 08/08/16 13:54 pCO2 32 mm/Hg (35-45) L 08/08/16 11:45 pO2 54.0 mm/Hg (80-100) L 08/08/16 11:45 HCO3 19.8 mmol/L (21-28) L 08/08/16 11:45 ABG pH 7.40 (7.35-7.45) 08/08/16 11:45 ABG Total CO2 20.8 mmol.L (22-28) L 08/08/16 11:45 ABG O2 Saturation 88.2 % (95-98) L 08/08/16 11:45 ABG Base Excess -4.1 mmol/L (-2.0-3.0) L 08/08/16 11:45 ABG Potassium 3.5 mmol/L (3.6-5.2) L 08/08/16 11:45 Sodium 140.0 mmol/L (132-148) 08/08/16 11:45 Chloride 110.0 mmol/L (98-107) H 08/08/16 11:45 Glucose 118 mg/dl (75-110) H 08/08/16 11:45 Lactate 0.9 mmol/L (0.7-2.1) 08/08/16 11:45 FiO2 21.0 % 08/08/16 11:45 Sodium 141 mmol/L (132-148) 08/09/16 08:00 Potassium 4.2 mmol/L (3.6-5.0) 08/09/16 08:00 Chloride 110 mmol/L (98-107) H 08/09/16 08:00 Carbon Dioxide 22 mmol/L (21-33) 08/09/16 08:00 Anion Gap 13 (10-20) 08/09/16 08:00 BUN 18 mg/dL (7-21) 08/09/16 08:00 Creatinine 0.8 mg/dL (0.5-1.4) 08/09/16 08:00 Est GFR ( Amer) > 60 08/09/16 08:00 Est GFR (Non-Af Amer) > 60 08/09/16 08:00 POC Glucose (mg/dL) 115 mg/dL (65-110) H 08/09/16 11:12 Random Glucose 137 mg/dL (70-110) H 08/09/16 08:00 Calcium 9.3 mg/dL (8.4-10.5) 08/09/16 08:00 Total Bilirubin 0.5 mg/dL (0.2-1.3) 08/09/16 08:00 AST 25 U/L (15-59) 08/09/16 08:00 ALT 30 U/L (7-56) 08/09/16 08:00 Alkaline Phosphatase 72 U/L (38-133) 08/09/16 08:00 Lactate Dehydrogenase 415 U/L (333-699) 08/08/16 12:00 Total Creatine Kinase 422 U/L (35-230) H 08/08/16 12:00 CK-MB (CK-2) 15.3 ng/mL (0.0-3.6) H 08/08/16 12:00 CK-MB (CK-2) % 3.6 % (2.5-3.0) H 08/08/16 12:00 Troponin I < 0.01 ng/mL 08/08/16 12:00 NT-Pro-B Natriuret Pep 222 pg/mL (0-450) 08/08/16 12:00 Total Protein 7.8 g/dL (5.8-8.3) 08/09/16 08:00 Albumin 4.1 g/dL (3.0-4.8) 08/09/16 08:00 Globulin 3.7 gm/dL 08/09/16 08:00 Albumin/Globulin Ratio 1.1 (1.1-1.8) 08/09/16 08:00 Arterial Blood Potassium 3.5 mmol/L (3.6-5.2) L 08/08/16 11:45 Urine Opiates Screen Negative (NEGATIVE) 08/08/16 13:00 Urine Methadone Screen Negative (NEGATIVE) 08/08/16 13:00 Ur Barbiturates Screen Negative (NEGATIVE) 08/08/16 13:00 Ur Phencyclidine Scrn Negative (NEGATIVE) 08/08/16 13:00 Ur Amphetamines Screen Negative (NEGATIVE) 08/08/16 13:00 U Benzodiazepines Scrn Negative (NEGATIVE) 08/08/16 13:00 U Oth Cocaine Metabols Negative (NEGATIVE) 08/08/16 13:00 U Cannabinoids Screen Negative (NEGATIVE) 08/08/16 13:00 Alcohol, Quantitative < 10 mg/dL (0-10) 08/08/16 12:00 Attending/Attestation - Attestation I have personally seen and examined this patient.: Yes I have fully participated in the care of the patient.: Yes I have reviewed all pertinent clinical information, including history, physical exam and plan: Yes Notes (Text): 08/09/16 15:41 attending note; Patient seen and examined with resident. Patient is Alert, awake and oriented. Walking without any difficulty. Not on oxygen. cough and shortness of breath improved. Patient is a 56 y/o male with hx of chronic pain brought to ED with altered mental status. The patient has a hx of Tramadol, Gabapenin and Ambien abuse. Drug abuse cessation strongly advised. Advised to slowly taper and discontinue tramadol and Ambien. 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 No acute CVA. COPD exacerbation; Treated with oxygen, DuoNeb, IV Solu-Medrol. Continue Levaquin. Smoking cessation is strongly advised. acute kidney injury; resolved after IV fluids. patient will be discharged home. Upon discharge the patient will follow-up with PMD . diagnosis; Altered mental status Ambien abuse COPD Active smoking acute renal failure
--- NOTE | 2016-08-09 13:02 | CON ---
DATE: 08/09/2016 HISTORY OF PRESENT ILLNESS: Shortly, the patient is a 56-year-old male with multiple medical problem s including chronic back pain. The patient was confused in the community and the patient was trying to break into the house, claiming that he lived there. The home medical office supervisor called EMS and police and jenny ent was found to be confused; that is why he was brought in to the hospital. The patient was seen an d examined. Notes reviewed. The patient has history of dependence on opioids, Ambien. The patient also has medical problems and chronic back pain. The patient denied history of being admitted to the psychiatric inpatient unit. The patient was seen by Dr. Hatfield on the medical side in 09/2015. As per Dr. Hatfield, patient does not have history of mental illness but has history of dependenc e on opioids. Last admission, the patient overdosed on Ambien and opioid unintentionally because pat ient had difficulty to fall asleep and to stay asleep. The patient was evaluated. The patient was pleasant and cooperative, socially appropriate. The jenny ent said that he does not remember what happened and he does not remember why he got here to the hosp ital. The patient reported that he has a lot of medical issues which are making him feel very upset, but patient denied being depressed, denied thoughts of killing himself or others. The patient denie d feeling anxious, denied hearing things, denied seeing things, denied paranoid ideations. The patie nt denies using any drugs. VITAL SIGNS: Stable. Temperature 98.8, pulse is 89, respirations 20, oxygen saturation is 94. MEDICATIONS: Reviewed. DuoNeb, Brovana, Pulmicort, Robitussin, heparin, Humalog, Levaquin, Ativan, Solu-Medrol, Protonix and sodium chloride. LABORATORY DATA: Reviewed. WBC cells 17.3. Coagulation reviewed. Chemistry reviewed. Chloride is 110. Toxicology is negative for any substances. Blood culture is preliminary no growth. Medical notes reviewed. The patient has altered mental status. The patient most likely has undiagno sed COPD, acute kidney injury secondary to prerenal azotemia. MENTAL STATUS EXAMINATION: The patient presented to be alert and oriented, pleasant and cooperative. Intermittent eye contact. Speech was normal rate, tone, quality, and quantity. Mood described, "I 'm upset because I have a lot of medical issues." Affect was reactive, mood congruent. Thought proc ess was coherent and goal directed. Thought content: The patient denied visual, auditory, or tactil e hallucinations. Denied paranoid ideation. The patient denied thoughts of harming himself or other s, denied intent or plan. Insight and judgment are fair. Impulses are well controlled. IMPRESSION: Most likely the patient had episodes of delirium. Considering the fact that urine drug screen was negative for any opioids and benzodiazepines, most likely patient either used synthetic dr ugs but patient denied using any drugs or a medical issue, rule out mood disorder due to general medi deric condition. PLAN: The patient adamantly denied thoughts of harming himself or others, denied using any drugs, de nied hearing voices, denied seeing things. The patient does not present to be psychotic. The patien t does not want to have a psychiatrist as outpatient. The patient said, "I'm not crazy. I don't nee d to see a psychiatrist." Meanwhile, continue current management. This keno writer/runner will sign off. The p atient denied thoughts of killing himself or others and considered to pose no threat to self or other s. Should you have any questions, give me a call back. Cheryl Thompson MD cc: [id number] TT: 08/09/2016 13:01:22 Confirmation # [id number] Dictation # [id number] grayson
== END 2016-08-09 12:54 | disposition home or self-care (01) ==
LOC: ED 11:09 → ERH 13:16 → 3RSO 17:30
PROVIDERS: ADMIT Internal Medicine; ATTEND Internal Medicine
DX: R41.82 Altered mental status, unspecified (principal); N17.9 Acute kidney failure, unspecified; J44.1 Chronic obstructive pulmonary disease with (acute) exacerbation; G89.29 Other chronic pain; M54.9 Dorsalgia, unspecified; R09.02 Hypoxemia; F17.210 Nicotine dependence, cigarettes, uncomplicated; F13.10 Sedative, hypnotic or anxiolytic abuse, uncomplicated; E86.0 Dehydration; G93.89 Other specified disorders of brain
CPT/HCPCS: 36415; 70450; 71010; 80053; 82550; 82553; 82803; 82948; 83615; 83880; 84484; 85025; 85378; 85610; 85730; 87040; 93005; 94640; 96372; 96374; 96375; 96376; 99285; G0378; G0480; J1644; J2920; J2930; J7040

== ENCOUNTER 2016-08-11 18:21 | Observation (INO) | payer MEDICARE ==
[2016-08-11 18:33] VITALS: BMI 25.1
[2016-08-11 18:36] VITALS: RESP 18
[2016-08-11 18:50] LABS: ADD MANUAL DIFF? NO
[2016-08-11 18:55] LABS: BASO # 0.01 K/mm3 (0.0-2.0); BASO % 0.1 % (0.0-3.0); GRAN % 70.5 % (50.0-68.0); HEMATOCRIT 39.6 % (42.0-52.0); LYMPH # 2.5 (1.2-3.4); MEAN CELL VOLUME 71.6 fL (80.0-105.0); MEAN CORPUSCULAR HEMOGLOBIN 23.3 pg (25.0-35.0); MEAN CORPUSCULAR HGB CONC 32.6 g/dl (31.0-37.0); MONO # 0.8 (0.1-0.6); MONO % 7.4 % (1.0-6.0); PLATELET COUNT 250 10^3/uL (120.0-450.0); RED CELL DISTRIBUTION WIDTH 27.7 % (11.5-14.5); WHITE BLOOD COUNT 11.2 10^3/ul (4.5-11.0)
[2016-08-11 19:04] LABS: BLOOD UREA NITROGEN 22 mg/dL (7-21); CALCIUM 9.1 mg/dL (8.4-10.5); CARBON DIOXIDE 23 mmol/L (21-33); CHLORIDE 106 mmol/L (98-107); GFR AFRICAN-AMERICAN > 60; GLUCOSE,RANDOM 101 mg/dL (70-110); POTASSIUM 3.6 mmol/L (3.6-5.0); SODIUM 138 mmol/L (132-148)
--- NOTE | 2016-08-11 19:09 | ED PDOC ---
Arrival/HPI - General Historian: Patient - History of Present Illness Symptom Onset: Sudden Symptom Course: Unchanged Activities at Onset: Rest <Alli Mike - Last Filed: 08/11/16 22:30> <Moose Buchanan - Last Filed: 08/12/16 00:07> - General Chief Complaint: Altered Mental Status Time Seen by Provider: 08/11/16 18:24 - History of Present Illness Narrative History of Present Illness (Text): 08/11/16 19:14 A 56 year old male, whose past medical history includes chronic back pain and tramadol/ambien/gabapentin abuse, was brought in by EMS because port authority found patient sleeping under bridge. Patient admits to taking gabapentin earlier today. Denies any other drug use. Patient denies any chest pain, shortness of breath or any other complaints at this time. (Alli Mike) Associated Symptoms (Text): none (Alli Mike) Past Medical History - Provider Review Nursing Documentation Reviewed: Yes - Infectious Disease Hx of Infectious Diseases: None - Tetanus Immunization Tetanus Immunization: Unknown - Past Medical History Past Medical History: No Previous - Cardiac Hx Cardiac Disorders: No Hx Hypertension: No - Pulmonary Hx Respiratory Disorders: No Hx Tuberculosis: No - Neurological Hx Neurological Disorder: No - HEENT Hx HEENT Disorder: No - Renal Hx Renal Disorder: No - Endocrine/Metabolic Hx Endocrine Disorders: Yes Hx Diabetes Mellitus Type 2: Yes - Hematological/Oncological Hx Blood Disorders: No - Integumentary Hx Dermatological Disorder: No - Musculoskeletal/Rheumatological Hx Back Pain: Yes Hx Falls: No Other/Comment: spinal surgery x2 - Gastrointestinal Hx Gastrointestinal Disorders: No - Genitourinary/Gynecological Hx Genitourinary Disorders: No Hx Sexually Transmitted Diseases: No - Psychiatric Hx Psychophysiologic Disorder: No Hx Depression: No Hx Substance Use: No (pt denies) - Past Surgical History Past Surgical History: Unable to Obtain - Surgical History Hx Orthopedic Surgery: Yes (back surgery x2) - Anesthesia Hx Anesthesia: Yes Hx Anesthesia Reactions: No Hx Malignant Hyperthermia: No - Suicidal Assessment Feels Threatened In Home Enviroment: No <Alli Mike - Last Filed: 08/11/16 22:30> Family/Social History - Physician Review Nursing Documentation Reviewed: Yes Family/Social History: No Known Family HX Smoking Status: Heavy Smoker > 10 Cigarettes Daily Hx Alcohol Use: No (pt denies) Hx Substance Use: No (pt denies) Hx Substance Use Treatment: No <Alli Mike - Last Filed: 08/11/16 22:30> Allergies/Home Meds <Alli Mike - Last Filed: 08/11/16 22:30> <Moose Buchanan - Last Filed: 08/12/16 00:07> Allergies/Adverse Reactions: Allergies No Known Allergies Allergy (Verified 08/11/16 18:37) Home Medications: Home Meds Medication Instructions Recorded Confirmed Ambien 07/04/16 Gabapentin 600 mg PO Q6 07/04/16 07/04/16 traMADol 07/04/16 oxyCODONE [oxyCODONE Immediate 08/08/16 Release Tab] Review of Systems - Physician Review All systems were reviewed & negative as marked: Yes - Review of Systems Constitutional: Normal Respiratory: absent: SOB Cardiovascular: absent: Chest Pain Gastrointestinal: absent: Abdominal Pain, Nausea, Vomiting Genitourinary Male: absent: Dysuria Neurological: absent: Headache, Dizziness Psychiatric: absent: Depression, Suicidal Ideation <Alli Mike - Last Filed: 08/11/16 22:30> Physical Exam Vital Signs Reviewed: Yes Temperature: Afebrile Blood Pressure: Hypertensive Pulse: Regular Respiratory Rate: Normal Appearance: Positive for: Well-Appearing, Non-Toxic, Comfortable Pain Distress: None Mental Status: Positive for: other (somnolent but arousable and is oriented to person, place, and to time) - Systems Exam Head: Present: Atraumatic, Normocephalic Pupils: Present: PERRL Conjunctiva: Present: Normal Mouth: Present: Moist Mucous Membranes Pharnyx: Present: Normal. No: ERYTHEMA, EXUDATE Neck: Present: Normal Range of Motion Respiratory/Chest: Present: Clear to Auscultation, Good Air Exchange. No: Respiratory Distress, Accessory Muscle Use Cardiovascular: Present: Regular Rate and Rhythm, Normal S1, S2. No: Murmurs Abdomen: Present: Normal Bowel Sounds. No: Tenderness, Distention, Peritoneal Signs Back: Present: Normal Inspection Upper Extremity: Present: Normal Inspection. No: Cyanosis, Edema Lower Extremity: Present: Normal Inspection. No: Edema Neurological: Present: GCS=15, CN II-XII Intact, Speech Normal Skin: Present: Warm, Dry, Normal Color. No: Rashes Psychiatric: Present: Oriented x 3, Other (somnolent). No: Suicidal Ideation <Alli Mike - Last Filed: 08/11/16 22:30> Medical Decision Making - Lab Interpretations I have reviewed the lab results: Yes <Alli Mike - Last Filed: 08/11/16 22:30> Re-evaluation Time: 00:01 Reassessment Condition: Re-examined, Improved <Moose Buchanan - Last Filed: 08/12/16 00:07> ED Course and Treatment: 08/11/16 18:57 Impression: A 56 year old male found sleeping [place] bridge, somnolent. Differential Diagnosis included but are not limited to: tramadol vs gabapentin vs ambien vs synthetic drug abuse Plan: -- labs -- Reassess and disposition Prior Visits: Notes and results from previous visits were reviewed. Patient last reported to the emergency department on 08/08/16 for evaluation of AMS. Progress Notes: Patient is somnolent, fully arousable, in no distress. Patient is well known to emergency department with multiple, similar visits. No trauma. Patient was recently admitted for dehydration. Will place in observation and await sobriety. (Alli Mike) ED OBSERVATION Date of observation admission: 08/11/16 Time of observation admission: 18:24 <Alli Mike - Last Filed: 08/11/16 22:30> Discharge: Yes <Moose Buchanan - Last Filed: 08/12/16 00:07> - Observation admission statement Patient is being placed in observation because:: somnolent (Alli Mike) - Goals of Observation Goals of observation are:: To observe for any abnormalities and determine disposition while awaiting sobriety. (Alli Mike) - Progress Note Progress Note: 08/11/16 20:15 Labs are unremarkable. Patient sleeping comfortably. 08/11/16 22:00 Patient is sleeping comfortably. Repeat finger stick is normal. Patient will remain on observation, awaiting sobriety and will be signed out to Dr. Buchanan at 23:00. (Alli Mike) 08/11/16 23:00 Case endorsed to me by Dr. Mike, pending re-evaluation and final disposition. 08/12/16 00:01 Pt awake, alert, ambulating in ER with steady gait. Clinically sober. Denies any complaint and requesting to go home. Pt in no acute distress, vital signs stable. Pt stable for discharge home. (Moose Buchanan) - Scribe Statement The provider has reviewed the documentation as recorded by the Scribe <Alli Mike - Last Filed: 08/11/16 22:30> <Moose Buchanan - Last Filed: 08/12/16 00:07> - Scribe Statement Tari Amador Provider Scribe Attestation: All medical record entries made by the Scribe were at my direction and personally dictated by me. I have reviewed the chart and agree that the record accurately reflects my personal performance of the history, physical exam, medical decision making, and the department course for this patient. I have also personally directed, reviewed, and agree with the discharge instructions and disposition. (Alli Mike) Disposition/Present on Arrival - Present on Arrival Any Indicators Present on Arrival: No History of DVT/PE: No History of Uncontrolled Diabetes: No Urinary Catheter: No History of Decub. Ulcer: No History Surgical Site Infection Following: None - Disposition Have Diagnosis and Disposition been Completed?: Yes Disposition Time: 18:24 <Alli Mike - Last Filed: 08/11/16 22:30> - Present on Arrival Any Indicators Present on Arrival: No - Disposition Have Diagnosis and Disposition been Completed?: Yes Disposition Time: 00:02 <Moose Buchanan - Last Filed: 08/12/16 00:07> - Disposition Diagnosis: Altered mental status, Medication side effects Disposition: HOME/ ROUTINE Patient Problems: Current Active Problems Problem Status Onset Altered mental status Acute Medication side effects Acute Condition: GOOD
[2016-08-12 01:26] VITALS: BP 112/78; PULSE 82; TEMP 98.2; O2SAT 99
== END 2016-08-12 00:02 | disposition home or self-care (01) ==
LOC: ED 18:21 → EROBSV 18:24
PROVIDERS: ADMIT Emergency Medicine; ATTEND Emergency Medicine
DX: R41.82 Altered mental status, unspecified (principal); T42.6X5A Adverse effect of other antiepileptic and sedative-hypnotic drugs, initial encounter; Y92.89 Other specified places as the place of occurrence of the external cause
CPT/HCPCS: 80048; 85025; 99284; G0378

== ENCOUNTER 2016-08-28 20:14 | Observation (INO) | payer MEDICARE ==
[2016-08-28 20:14] VITALS: BMI 25.1
[2016-08-28 20:42] VITALS: TEMP 98.7
--- NOTE | 2016-08-28 20:48 | ED PDOC ---
Arrival/HPI - General Historian: EMS EM Caveat: Intoxicated <Farshad Villa - Last Filed: 08/28/16 22:28> <Jean Ryder - Last Filed: 08/29/16 04:50> - General Time Seen by Provider: 08/28/16 20:17 - History of Present Illness Narrative History of Present Illness (Text): 08/28/16 20:37 The pt is a 56yo male, brought to the Emergency department by EMS s/p discovering pt publicly intoxicated. Pt admits to drinking alcohol, denies any drug use. A full HPI is unavailable due to pt's intoxicated state. No additional medical complaints. (Farshad Villa) Past Medical History - Provider Review Nursing Documentation Reviewed: Yes - Infectious Disease Hx of Infectious Diseases: None - Tetanus Immunization Tetanus Immunization: Unknown - Past Medical History Past Medical History: No Previous - Cardiac Hx Cardiac Disorders: No Hx Hypertension: No - Pulmonary Hx Respiratory Disorders: No Hx Tuberculosis: No - Neurological Hx Neurological Disorder: No - HEENT Hx HEENT Disorder: No - Renal Hx Renal Disorder: No - Endocrine/Metabolic Hx Endocrine Disorders: Yes Hx Diabetes Mellitus Type 2: Yes - Hematological/Oncological Hx Blood Disorders: No - Integumentary Hx Dermatological Disorder: No - Musculoskeletal/Rheumatological Hx Back Pain: Yes Hx Falls: No Other/Comment: spinal surgery x2 - Gastrointestinal Hx Gastrointestinal Disorders: No - Genitourinary/Gynecological Hx Genitourinary Disorders: No Hx Sexually Transmitted Diseases: No - Psychiatric Hx Psychophysiologic Disorder: No Hx Depression: No Hx Substance Use: No (pt denies) - Past Surgical History Past Surgical History: Unable to Obtain - Surgical History Hx Orthopedic Surgery: Yes (back surgery x2) - Anesthesia Hx Anesthesia: Yes Hx Anesthesia Reactions: No Hx Malignant Hyperthermia: No - Suicidal Assessment Feels Threatened In Home Enviroment: No <Farshad Villa - Last Filed: 08/28/16 22:28> Family/Social History - Physician Review Nursing Documentation Reviewed: Yes Family/Social History: Unknown Family HX Smoking Status: Heavy Smoker > 10 Cigarettes Daily Hx Alcohol Use: No (pt denies) Hx Substance Use: No (pt denies) Hx Substance Use Treatment: No <Farshad Villa - Last Filed: 08/28/16 22:28> Allergies/Home Meds <Farshad Villa - Last Filed: 08/28/16 22:28> <Jean Ryder - Last Filed: 08/29/16 04:50> Allergies/Adverse Reactions: Allergies No Known Allergies Allergy (Verified 08/28/16 20:55) Home Medications: Home Meds Medication Instructions Recorded Confirmed Unobtainable 08/28/16 08/28/16 Review of Systems - Physician Review All systems were reviewed & negative as marked: Yes - Review of Systems Systems not reviewed;Unavailable: Intoxicated <Farshad Villa - Last Filed: 08/28/16 22:28> Physical Exam Vital Signs Reviewed: Yes Temperature: Afebrile Blood Pressure: Normal Pulse: Regular Respiratory Rate: Normal (16) Appearance: Positive for: Well-Appearing, Non-Toxic, Comfortable Pain Distress: None Mental Status: Positive for: Alert and Oriented X 3 - Systems Exam Head: Present: Atraumatic, Normocephalic Pupils: Present: PERRL Extroacular Muscles: Present: EOMI Conjunctiva: Present: Normal Mouth: Present: Moist Mucous Membranes Neck: Present: Normal Range of Motion Respiratory/Chest: Present: Clear to Auscultation, Good Air Exchange. No: Respiratory Distress, Accessory Muscle Use Cardiovascular: Present: Regular Rate and Rhythm, Normal S1, S2. No: Murmurs Abdomen: Present: Normal Bowel Sounds. No: Tenderness, Distention, Peritoneal Signs Upper Extremity: Present: Normal Inspection Lower Extremity: Present: Normal Inspection Neurological: Present: GCS=15, CN II-XII Intact, Motor Func Grossly Intact, Normal Sensory Function. No: Speech Normal (slurred speech) Skin: Present: Warm Psychiatric: Present: Alert, Oriented x 3, Normal Insight, Normal Concentration , Other (alcohol on breath) <Farshad Villa - Last Filed: 08/28/16 22:28> Medical Decision Making <Farshad Villa - Last Filed: 08/28/16 22:28> <Jean Ryder - Last Filed: 08/29/16 04:50> ED Course and Treatment: 08/28/16 20:49 Impression: ETOH intoxication Differential Diagnosis included but are not limited to: Plan: -- Observation for clinical sobriety -- Reassess and disposition Progress Notes: Refer to Emergency department obs sections for progress. (Farshad Villa) ED OBSERVATION Date of observation admission: 08/28/16 Time of observation admission: 20:36 <Farshad Villa - Last Filed: 08/28/16 22:28> Discharge: Yes <Jean Ryder - Last Filed: 08/29/16 04:50> - Observation admission statement Patient is being placed in observation because:: Pt acutely intoxicated. (Farshad Villa) - Goals of Observation Goals of observation are:: Awaiting clinical sobriety, (Farshad Villa) - Progress Note Progress Note: 08/28/16 22:31 Patient continues to be intoxicated. Will continue to monitor. Signed out to Dr. Ryder to f/u sobriety. (Farshad Villa) 08/29/16 00:31 Patient resting comfortably with stable vitals. no new complaints. 08/29/16 02:31 Patient sleeping in the emergency department. stable vitals. 08/29/16 04:31 Patient sleeping. stable vitals. no new complaints. 08/29/16 04:49 Patient is requesting for discharge. Patient is awake, alert and oriented X3, and ambulatory in the emergency department with a steady gait. Will discharge patient home. (Jean Ryder) - Scribe Statement The provider has reviewed the documentation as recorded by the Scribe <Farshad Villa - Last Filed: 08/28/16 22:28> <Jean Ryder - Last Filed: 08/29/16 04:50> - Scribe Statement Breann Lu Provider Scribe Attestation: All medical record entries made by the Scribe were at my direction and personally dictated by me. I have reviewed the chart and agree that the record accurately reflects my personal performance of the history, physical exam, medical decision making, and the department course for this patient. I have also personally directed, reviewed, and agree with the discharge instructions and disposition. (Farshad Villa) Disposition/Present on Arrival - Present on Arrival Any Indicators Present on Arrival: No History of DVT/PE: No History of Uncontrolled Diabetes: No Urinary Catheter: No History Surgical Site Infection Following: None - Disposition Have Diagnosis and Disposition been Completed?: No Disposition Time: 22:32 <Farshad Villa - Last Filed: 08/28/16 22:28> - Present on Arrival Any Indicators Present on Arrival: No History of DVT/PE: No History of Uncontrolled Diabetes: No Urinary Catheter: No History of Decub. Ulcer: No History Surgical Site Infection Following: None - Disposition Have Diagnosis and Disposition been Completed?: No Patient Plan: Discharge <Jean Ryder - Last Filed: 08/29/16 04:50> - Disposition Diagnosis: Alcohol intoxication Patient Problems: Current Active Problems Problem Status Onset Alcohol intoxication Acute Condition: GOOD
[2016-08-29 00:16] VITALS: RESP 16
[2016-08-29 05:09] VITALS: BP 135/76; PULSE 94; O2SAT 99
== END 2016-08-29 04:48 | disposition home or self-care (01) ==
LOC: ED 20:14 → EROBSV 20:36
PROVIDERS: ADMIT Emergency Medicine; ATTEND Emergency Medicine
DX: F10.129 Alcohol abuse with intoxication, unspecified (principal); E11.9 Type 2 diabetes mellitus without complications
CPT/HCPCS: 99283; G0378

== ENCOUNTER 2016-09-06 14:59 | Emergency (ER) | payer MEDICARE ==
[2016-09-06 15:00] VITALS: BMI 25.1
[2016-09-06] MEDS ORDERED: Sodium Chloride 0.9% 1,000 ML IV STA (15:07)
[2016-09-06 15:09] VITALS: TEMP 98.5
--- NOTE | 2016-09-06 15:09 | ED PDOC ---
Arrival/HPI - General Time Seen by Provider: 09/06/16 15:01 Historian: Patient, EMS - History of Present Illness Narrative History of Present Illness (Text): 09/06/16 15:06 A 56 year old male brought into the emergency department by EMS for possible overdose. As per EMS, the [place] police found patient wandering in the streets. Call placed to EMS to bring patient in for further evaluation. Patient possibly took 13 pills of Tramadol 15 mg each. Patient denies any pain or discomfort. No obvious trauma or injury. HPI and ROS limited due to patients state. Time/Duration: Prior to Arrival Symptom Course: Unchanged Quality: Other Context: Street Past Medical History - Provider Review Nursing Documentation Reviewed: Yes - Infectious Disease Hx of Infectious Diseases: None - Tetanus Immunization Tetanus Immunization: Unknown - Past Medical History Past Medical History: No Previous - Cardiac Hx Cardiac Disorders: No Hx Hypertension: No - Pulmonary Hx Respiratory Disorders: No Hx Tuberculosis: No - Neurological Hx Neurological Disorder: No - HEENT Hx HEENT Disorder: No - Renal Hx Renal Disorder: No - Endocrine/Metabolic Hx Endocrine Disorders: Yes Hx Diabetes Mellitus Type 2: Yes - Hematological/Oncological Hx Blood Disorders: No - Integumentary Hx Dermatological Disorder: No - Musculoskeletal/Rheumatological Hx Back Pain: Yes Hx Falls: No Other/Comment: spinal surgery x2 - Gastrointestinal Hx Gastrointestinal Disorders: No - Genitourinary/Gynecological Hx Genitourinary Disorders: No Hx Sexually Transmitted Diseases: No - Psychiatric Hx Psychophysiologic Disorder: No Hx Depression: No Hx Substance Use: No (pt denies) - Past Surgical History Past Surgical History: Unable to Obtain - Surgical History Hx Orthopedic Surgery: Yes (back surgery x2) - Anesthesia Hx Anesthesia: Yes Hx Anesthesia Reactions: No Hx Malignant Hyperthermia: No - Suicidal Assessment Feels Threatened In Home Enviroment: No Family/Social History - Physician Review Nursing Documentation Reviewed: Yes Family/Social History: No Known Family HX Smoking Status: Heavy Smoker > 10 Cigarettes Daily Hx Alcohol Use: No (pt denies) Hx Substance Use: No (pt denies) Hx Substance Use Treatment: No Allergies/Home Meds Allergies/Adverse Reactions: Allergies No Known Allergies Allergy (Verified 08/28/16 20:55) Review of Systems - Review of Systems Systems not reviewed;Unavailable: Acuity of Condition Physical Exam Vital Signs Reviewed: Yes Vital Signs Temp Pulse Resp BP Pulse Ox 09/06/16 18:37 89 20 130/93 H 95 09/06/16 17:22 92 H 18 133/62 94 L 09/06/16 16:17 96 H 16 120/80 93 L 09/06/16 15:00 98.5 F 105 H 18 131/87 95 Temperature: Afebrile Blood Pressure: Normal Pulse: Tachycardic Respiratory Rate: Normal Appearance: No: Other (Body tremors) Pain Distress: None Mental Status: Positive for: Confused, other (Alert yet drowsy, Oriented to person only). No: Agitated - Systems Exam Head: Present: Atraumatic, Normocephalic Pupils: Present: PERRL (pupils 3mm in length) Extroacular Muscles: Present: EOMI. No: Other (Nystagmus) Conjunctiva: Present: Normal Mouth: Present: Moist Mucous Membranes Neck: Present: Normal Range of Motion. No: MIDLINE TENDERNESS, Paraspinal Tenderness Respiratory/Chest: Present: Clear to Auscultation, Good Air Exchange. No: Respiratory Distress, Accessory Muscle Use Cardiovascular: Present: Regular Rate and Rhythm, Normal S1, S2. No: Murmurs Abdomen: Present: Normal Bowel Sounds. No: Tenderness, Distention, Peritoneal Signs Back: Present: Normal Inspection. No: Midline Tenderness, Paraspinal Tenderness Upper Extremity: Present: Normal Inspection, Normal ROM, NORMAL PULSES. No: Cyanosis, Edema Lower Extremity: Present: Normal Inspection, NORMAL PULSES, Normal ROM. No: Edema, CALF TENDERNESS Skin: Present: Warm, Dry, Normal Color. No: Rashes Psychiatric: Present: Alert (yet drowsy and confused). No: Oriented x 3 ( Oriented to person only), Agitated Medical Decision Making ED Course and Treatment: 09/06/16 1506 Impression: A 56 year old male brought in for possible overdose. Patient is drowsy, confused. No obvious trauma or injury. Differential Diagnosis included but are not limited to: Polysubstance abuse suspected overdose Plan: -- Head CT -- Chest xray -- EKG -- Labs -- Urinalysis -- IV fluids -- Reassess and disposition Progress Notes: EKG shows NSR at [address]-segment elevations, normal intervals, normal axis. Interpreted by me. Report Date : 09/06/2016 16:05:03 PROCEDURE: CHEST RADIOGRAPH, 1 VIEW Dictator : Nydia Novak MD IMPRESSION: Suspect discoid atelectasis in the right lower lobe. Aspiration pneumonitis cannot be excluded. Follow-up is advised. Mild venous congestion. Report Date : 09/06/2016 16:05:42 PROCEDURE: CT HEAD WITHOUT CONTRAST. Dictator : Steven Montague MD IMPRESSION: Stable unenhanced head CT including bifrontal and bitemporal cystic encephalomalacia. No acute intracranial findings by standard CT criteria. Follow-up CT or MRI may be performed as clinically warranted. 09/06/16 18:50 On re-evaluation, patient is alert and oriented times person, place and time. No ataxia or body tremors. Patient states he took Ambien and Tramadol which made him feel "loopy". Patient denies taking an excess amount of Tramadol. He denies any suicidal ideation or homicidal ideation. On exam, trace rhonchi in right lung field. Oxygen saturation is 95% on room air. Patient refuses any further treatment and would like to be discharged home. Patient denies any shortness of breath or any other complaints. - Lab Interpretations Lab Results: 09/06/16 15:15 09/06/16 15:15 Lab Results 09/06/16 18:05: Urine Opiates Screen Negative, Urine Methadone Screen Negative, Ur Barbiturates Screen Negative, Ur Phencyclidine Scrn Negative, Ur Amphetamines Screen Negative, U Benzodiazepines Scrn Negative, U Oth Cocaine Metabols Negative, U Cannabinoids Screen Negative 09/06/16 18:05: Urine Color Yellow, Urine Appearance Clear, Urine pH 6.0, Ur Specific D[place]el 1.020, Urine Protein Negative, Urine Glucose (UA) Negative, Urine Ketones Negative, Urine Blood Negative, Urine Nitrate Negative, Urine Bilirubin Negative, Urine Urobilinogen 0.2, Ur Leukocyte Esterase Negative 09/06/16 15:15: Alcohol, Quantitative < 10 09/06/16 15:15: Salicylates < 1 L, Acetaminophen < 10.0 L 09/06/16 15:15: Sodium 140, Potassium 4.3, Chloride 105, Carbon Dioxide 27, Anion Gap 12, BUN 21, Creatinine 0.8, Est GFR ( Amer) > 60, Est GFR (Non- Af Amer) > 60, Random Glucose 75, Calcium 9.1, Total Bilirubin 0.5, AST 28, ALT 42, Alkaline Phosphatase 61, Total Creatine Kinase 33 L, Total Protein 7.1, Albumin 4.0, Globulin 3.2, Albumin/Globulin Ratio 1.3 09/06/16 15:15: WBC 5.2 D, RBC 5.32, Hgb 13.3 L, Hct 40.5 L, MCV 76.1 L, MCH 25.0, MCHC 32.8, RDW 22.9 H, Plt Count 231, MPV 9.3, Gran % 33.1 L, Lymph % ( Auto) 50.2 H, [place] % (Auto) 10.1 H, Eos % (Auto) 5.5 H, Baso % (Auto) 1.1, Gran # 1.73, Lymph # 2.6, [place] # 0.5, Eos # 0.3, Baso # 0.06 - RAD Interpretation Radiology Orders: 09/06/16 15:06 HEAD W/O CONTRAST [CT] Stat 09/06/16 15:07 CHEST ONE VIEW [RAD] Stat - Medication Orders Current Medication Orders: Discontinued Medications Albuterol/Ipratropium (Duoneb 3 Mg/0.5 Mg (3 Ml) Ud) 3 ml IH STAT STA Stop: 09/06/16 18:41 Last Admin: 09/06/16 18:47 Dose: 3 ml Azithromycin (Zithromax) 500 mg PO STAT STA PRN Reason: Protocol Stop: 09/06/16 18:41 Last Admin: 09/06/16 18:47 Dose: 500 mg Sodium Chloride (Sodium Chloride 0.9%) 1,000 mls @ 999 mls/hr IV .Q1H1M STA Stop: 09/06/16 16:07 Last Admin: 09/06/16 15:41 Dose: 999 mls/hr Prednisone (Prednisone Tab) 60 mg PO STAT STA Stop: 09/06/16 18:40 Last Admin: 09/06/16 18:47 Dose: 60 mg - Scribe Statement The provider has reviewed the documentation as recorded by the Sneha Tobar Provider Scribe Attestation: All medical record entries made by the Scribe were at my direction and personally dictated by me. I have reviewed the chart and agree that the record accurately reflects my personal performance of the history, physical exam, medical decision making, and the department course for this patient. I have also personally directed, reviewed, and agree with the discharge instructions and disposition. Disposition/Present on Arrival - Present on Arrival Any Indicators Present on Arrival: No History of DVT/PE: No History of Uncontrolled Diabetes: No Urinary Catheter: No History Surgical Site Infection Following: None - Disposition Have Diagnosis and Disposition been Completed?: Yes Diagnosis: Overdose, COPD (chronic obstructive pulmonary disease) Disposition: HOME/ ROUTINE Disposition Time: 19:03 Patient Plan: Discharge Condition: IMPROVED Discharge Instructions (ExitCare): COPD (Chronic Obstructive Pulmonary Disease ) (ED), Adult Overdose (ED) Additional Instructions: Mr Gallardo, thank you for letting us take care of you today. Your provider was Dr. Villa You were treated for Overdose, COPD. The emergency medical care you received today was directed at your acute symptoms. If you were prescribed any medication, please fill it and take as directed. It may take several days for your symptoms to resolve. Return to the Emergency Department if your symptoms worsen, do not improve, or if you have any other problems. Please contact your doctor or call one of the physicians/clinics you have been referred to that are listed on the Patient Visit Information form that is included in your discharge packet. Bring any paperwork you were given at discharge with you along with any medications you are taking to your follow up visit. Our treatment cannot replace ongoing medical care by a primary care provider (PCP) outside of the emergency department. Thank you for allowing the [facility] team to be part of your care today. If you had an X-Ray or CT scan: A Radiologist will review the ED reading if any change in treatment is needed we will contact you. If you had a blood, urine, or wound culture: It will take several days for the results, if any change in treatment is needed we will contact you. If you had an STI test: It will take 48 hours for the results. Please call after 1 week if you have not heard back. Prescriptions: Albuterol HFA [Ventolin HFA 90 mcg/actuation (8 g)] 2 puff IH Q4 #1 puff Azithromycin [Z-Geovanni] 250 mg PO DAILY #4 tab predniSONE [predniSONE Tab] 40 mg PO DAILY #8 tab Referrals: Richard Lopez MD [Medical Doctor] - Follow up with primary Forms: Am[employer]ona (Lithuanian)
[2016-09-06 15:42] LABS: BASO # 0.06 K/mm3 (0.0-2.0); BASO % 1.1 % (0.0-3.0); EOS # 0.3 (0.0-0.7); EOS % 5.5 % (1.5-5.0); GRAN # 1.73 (1.4-6.5); GRAN % 33.1 % (50.0-68.0); HEMOGLOBIN 13.3 gm/dL (14.0-18.0); LYMPH # 2.6 (1.2-3.4); LYMPH % 50.2 % (22.0-35.0); MEAN CELL VOLUME 76.1 fL (80.0-105.0); MEAN CORPUSCULAR HGB CONC 32.8 g/dl (31.0-37.0); MEAN PLATELET VOLUME 9.3 fl (7.0-11.0); MONO # 0.5 (0.1-0.6); MONO % 10.1 % (1.0-6.0); PLATELET COUNT 231 10^3/uL (120.0-450.0); RBC 5.32 10^6/uL (3.5-6.1); RED CELL DISTRIBUTION WIDTH 22.9 % (11.5-14.5); WHITE BLOOD COUNT 5.2 10^3/ul (4.5-11.0)
[2016-09-06 15:54] LABS: SALICYLATE < 1 mg/dL (2.0-20.0)
[2016-09-06 15:55] LABS: ALB/GLOB RATIO 1.3 (1.1-1.8); ALT/SGPT 42 U/L (7-56); AST/SGOT 28 U/L (15-59); BLOOD UREA NITROGEN 21 mg/dL (7-21); CALCIUM 9.1 mg/dL (8.4-10.5); GFR AFRICAN-AMERICAN > 60; GFR NON-AFRICAN AMERICAN > 60
--- NOTE | 2016-09-06 16:06 | RAD ---
PROCEDURE: CHEST RADIOGRAPH, 1 VIEW HISTORY: overdose COMPARISON: 08/08/2016. FINDINGS: LUNGS: There is mild venous congestion. Question of discoid atelectasis in the right lower lobe. PLEURA: No pneumothorax or pleural fluid seen. CARDIOVASCULAR: Normal. OSSEOUS STRUCTURES: No significant abnormalities. VISUALIZED UPPER ABDOMEN: Normal. OTHER FINDINGS: None. IMPRESSION: Suspect discoid atelectasis in the right lower lobe. Aspiration pneumonitis cannot be excluded. Follow-up is advised. Mild venous congestion.
--- NOTE | 2016-09-06 16:07 | CT ---
PROCEDURE: CT HEAD WITHOUT CONTRAST. HISTORY: altered mental status COMPARISON: 08/08/[address] TECHNIQUE: Axial computed tomography images were obtained through the head/brain without intravenous contrast. Radiation dose: Total exam DLP = 1624 mGy-cm. This CT exam was performed using one or more of the following dose reduction techniques: Automated exposure control, adjustment of the mA and/or kV according to patient size, and/or use of iterative reconstruction technique. FINDINGS: HEMORRHAGE: No intracranial hemorrhage. BRAIN: Bifrontally limited by temporal cystic encephalomalacia again identified post remote trauma with limited diffuse cerebral atrophy again identified. No intra hemorrhage or interval cortical edema is identified. There is no suspicious extra-axial fluid collection identified at this time either. VENTRICLES: Stable in appearance. No hydrocephalus. CALVARIUM: Right frontal mamta hole again evident. PARANASAL SINUSES: Unremarkable as visualized. No significant inflammatory changes. MASTOID AIR CELLS: Unremarkable as visualized. No inflammatory changes. OTHER FINDINGS: None. IMPRESSION: Stable unenhanced head CT including bifrontal and bitemporal cystic encephalomalacia. No acute intracranial findings by standard CT criteria. Follow-up CT or MRI may be performed as clinically warranted.
[2016-09-06 16:23] LABS: ACETAMINOPHEN < 10.0 ug/ml (10.0-20.0)
[2016-09-06 18:30] LABS: URINE BILIRUBIN NEGATIVE (NEGATIVE); URINE BLOOD NEGATIVE (NEGATIVE); URINE GLUCOSE (UA) NEGATIVE (NEGATIVE); URINE LEUKOCYTE ESTERASE NEGATIVE Leu/uL (NEGATIVE); URINE NITRATE NEGATIVE (NEGATIVE); URINE PROTEIN NEGATIVE mg/dL (<30 mg/dL); URINE UROBILINOGEN 0.2 E.U./dL (<1 E.U./dL)
[2016-09-06 18:31] LABS: URINE APPEARANCE CLEAR (CLEAR); URINE COLOR YELLOW (YELLOW)
[2016-09-06 18:39] VITALS: BP 130/93; PULSE 89; RESP 20; O2SAT 95
[2016-09-06] MEDS ORDERED: Albuterol-Ipratrop 3 mg / 0.5 (3 ml) UD IH STA (18:40)
[2016-09-06 18:44] LABS: BARBITURATES, UR NEGATIVE (NEGATIVE); BENZODIAZEPINES, UR NEGATIVE (NEGATIVE); OPIATES, UR NEGATIVE (NEGATIVE); PHENCYCLIDINE, UR NEGATIVE (NEGATIVE)
--- NOTE | 2016-09-07 16:32 | CARD ---
APPROVED REPORT EKG Measurement Heart [id number] <Conclusion> Normal sinus rhythm Possible Left atrial enlargement Borderline ECG
== END 2016-09-06 19:03 | disposition home or self-care (01) ==
LOC: ED 14:59
DX: T50.901A Poisoning by unspecified drugs, medicaments and biological substances, accidental (unintentional), initial encounter (principal); R40.0 Somnolence; Y92.410 Unspecified street and highway as the place of occurrence of the external cause; J44.9 Chronic obstructive pulmonary disease, unspecified; F17.210 Nicotine dependence, cigarettes, uncomplicated; E11.9 Type 2 diabetes mellitus without complications
CPT/HCPCS: 70450; 71010; 80053; 81003; 82550; 85025; 93005; 96360; 99283; G0480; J7040

== ENCOUNTER 2016-09-07 17:31 | Observation (INO) | payer MEDICARE ==
[2016-09-07 17:32] VITALS: BMI 25.1
[2016-09-07 17:40] VITALS: TEMP 97.8
--- NOTE | 2016-09-07 17:41 | ED PDOC ---
Arrival/HPI <Gary Landis - Last Filed: 09/07/16 22:41> <Chad Tillman - Last Filed: 09/08/16 06:33> - General Time Seen by Provider: 09/07/16 17:36 - History of Present Illness Narrative History of Present Illness (Text): The patient is a 56yo male, presents to the emergency department with altered mental status with a history of substance abuse. patient admits to recreationally taking medications. He denies any suicidal or homicidal ideation. No other medical complaints. (Gary Landis) Past Medical History - Provider Review Nursing Documentation Reviewed: Yes - Infectious Disease Hx of Infectious Diseases: None - Tetanus Immunization Tetanus Immunization: Unknown - Past Medical History Past Medical History: No Previous - Cardiac Hx Cardiac Disorders: No Hx Hypertension: No - Pulmonary Hx Respiratory Disorders: No Hx Tuberculosis: No - Neurological Hx Neurological Disorder: No - HEENT Hx HEENT Disorder: No - Renal Hx Renal Disorder: No - Endocrine/Metabolic Hx Endocrine Disorders: Yes Hx Diabetes Mellitus Type 2: Yes - Hematological/Oncological Hx Blood Disorders: No - Integumentary Hx Dermatological Disorder: No - Musculoskeletal/Rheumatological Hx Back Pain: Yes Hx Falls: No Other/Comment: spinal surgery x2 - Gastrointestinal Hx Gastrointestinal Disorders: No - Genitourinary/Gynecological Hx Genitourinary Disorders: No Hx Sexually Transmitted Diseases: No - Psychiatric Hx Psychophysiologic Disorder: No Hx Depression: No Hx Substance Use: No (pt denies) - Past Surgical History Past Surgical History: Unable to Obtain - Surgical History Hx Orthopedic Surgery: Yes (back surgery x2) - Anesthesia Hx Anesthesia: Yes Hx Anesthesia Reactions: No Hx Malignant Hyperthermia: No - Suicidal Assessment Feels Threatened In Home Enviroment: No <Gary Landis - Last Filed: 09/07/16 22:41> Family/Social History - Physician Review Nursing Documentation Reviewed: Yes Smoking Status: Heavy Smoker > 10 Cigarettes Daily Hx Alcohol Use: No (pt denies) Hx Substance Use: No (pt denies) Hx Substance Use Treatment: No <Gary Landis - Last Filed: 09/07/16 22:41> Family/Social History: No Known Family HX <Chad Tillman - Last Filed: 09/08/16 06:33> Allergies/Home Meds <Gary Landis - Last Filed: 09/07/16 22:41> <Chad Tillman - Last Filed: 09/08/16 06:33> Allergies/Adverse Reactions: Allergies No Known Allergies Allergy (Verified 09/07/16 17:40) Review of Systems - Physician Review All systems were reviewed & negative as marked: Yes - Review of Systems Psychiatric: absent: Suicidal Ideation <Stuart Landisiy - Last Filed: 09/07/16 22:41> Physical Exam Temperature: Afebrile Blood Pressure: Normal Pulse: Regular Respiratory Rate: Normal Pain Distress: None <Stuart Landisiy - Last Filed: 09/07/16 22:41> <Chad Tillman - Last Filed: 09/08/16 06:33> - Physical Exam Narrative Physical Exam (Text): Patient is in no distress, no airway compromise, breathing without difficulty, good insp/exp effort. No signs of head/torso/extremity trauma. Following commands without difficulty. Head: Present: Atraumatic, Normocephalic. No: Tenderness, Contusion, Swelling, Ecchymosis, Abrasion, Laceration Pupils: Present: PERRL Extroacular Muscles: Present: EOMI Conjunctiva: Present: Normal Mouth: Present: Moist Mucous Membranes Neck: Present: Normal Range of Motion. No: MIDLINE TENDERNESS, Paraspinal Tenderness Respiratory/Chest: Present: Clear to Auscultation, Good Air Exchange. No: Respiratory Distress, Accessory Muscle Use Cardiovascular: Present: Regular Rate and Rhythm, Normal S1, S2. No: Murmurs Abdomen: Present: Normal Bowel Sounds. No: Tenderness, Distention, Peritoneal Signs, Rebound, Guarding Back: Present: Normal Inspection. No: Midline Tenderness, Paraspinal Tenderness Upper Extremity: Present: Normal Inspection. No: Cyanosis, Edema Lower Extremity: Present: Normal Inspection. No: Edema Neurological: Present: GCS=15, CN II-XII Intact Skin: Present: Warm, Dry, Normal Color. No: Rashes Lymphatic: Present: OX3, NI, NC Psychiatric: Present: Alert. Absent: Agitated, suicidal/homicidal ideations (Zelikson,Gary) Vital Signs Temp Pulse Resp BP Pulse Ox 09/08/16 04:00 75 16 92/72 L 95 07/22/17 02:00 71 16 97/65 L 95 09/08/16 00:00 76 16 100/62 95 09/07/16 22:00 70 16 115/71 94 L 09/07/16 20:01 79 16 121/78 92 L 09/07/16 17:39 97.8 F 100 H 14 114/85 94 L Medical Decision Making <Gary Landis - Last Filed: 09/07/16 22:41> <Chad Tillman - Last Filed: 09/08/16 06:33> ED Course and Treatment: Impression: Altered mental status, hx of substance abuse Differential Diagnosis included but are not limited to: Plan: -- Clindamycin 600 mg IVPB -- Reassess and disposition Prior Visits: Notes and results from previous visits were reviewed. On 09/06/2016 patient came in for evaluation of possible substance abuse. Patient had a Chest X-ray performed which showed atelectasis of right lower lobe with possible aspiration penumonitis. Patient did not wish to be evaluated further and was discharged home with Carlos. Progress Notes: (Gary Landis) - Medication Orders Current Medication Orders: Discontinued Medications Clindamycin Phosphate 600 mg/ (Sodium Chloride) 54 mls @ 108 mls/hr IVPB STAT STA PRN Reason: Protocol Stop: 09/07/16 18:20 Last Admin: 09/07/16 19:27 Dose: 108 mls/hr ED OBSERVATION Date of observation admission: 09/07/16 Time of observation admission: 17:51 <Gary Landis - Last Filed: 09/07/16 22:41> Discharge: Yes <Chad Tillman - Last Filed: 09/08/16 06:33> - Progress Note Progress Note: 09/07/16 20:15 Patient resting comfortably in room, vitals stable, in no acute distress. 09/07/16 22:[address] Tillman in stable condition, pending sobriety, reeval, dispo ( Gary Landis) 0040 Signed out to md pending sobriety. Patient sleeping. 0240 Patient sleeping. 0440 Patient sleeping. 0640 Patient awake, steady gait. Will discharge home. (Chad Tillman) Disposition/Present on Arrival - Present on Arrival History of DVT/PE: No History of Uncontrolled Diabetes: No Urinary Catheter: No History Surgical Site Infection Following: None <Gary Landis - Last Filed: 09/07/16 22:41> - Present on Arrival Any Indicators Present on Arrival: No - Disposition Have Diagnosis and Disposition been Completed?: Yes Disposition Time: 17:51 Patient Plan: Discharge <Chad Tillman - Last Filed: 09/08/16 06:33> - Disposition Diagnosis: Intoxication Disposition: HOME/ ROUTINE Patient Problems: Current Active Problems Problem Status Onset Intoxication Acute Condition: STABLE
[2016-09-07 19:35] LABS: BASO # 0.04 K/mm3 (0.0-2.0); BASO % 0.4 % (0.0-3.0); EOS # 0.1 (0.0-0.7); EOS % 0.9 % (1.5-5.0); GRAN # 4.57 (1.4-6.5); GRAN % 51.4 % (50.0-68.0); HEMOGLOBIN 12.6 gm/dL (14.0-18.0); LYMPH # 3.2 (1.2-3.4); LYMPH % 35.7 % (22.0-35.0); MEAN CELL VOLUME 77.6 fL (80.0-105.0); MEAN CORPUSCULAR HEMOGLOBIN 25.4 pg (25.0-35.0); MEAN CORPUSCULAR HGB CONC 32.7 g/dl (31.0-37.0); MEAN PLATELET VOLUME 9.2 fl (7.0-11.0); MONO % 11.6 % (1.0-6.0); PLATELET COUNT 223 10^3/uL (120.0-450.0); RBC 4.96 10^6/uL (3.5-6.1); RED CELL DISTRIBUTION WIDTH 22.5 % (11.5-14.5); WHITE BLOOD COUNT 8.9 10^3/ul (4.5-11.0)
[2016-09-07 19:45] LABS: ALB/GLOB RATIO 1.3 (1.1-1.8); ALBUMIN 3.9 g/dL (3.0-4.8); ALT/SGPT 30 U/L (7-56); AST/SGOT 23 U/L (15-59); BLOOD UREA NITROGEN 20 mg/dL (7-21); CALCIUM 9.1 mg/dL (8.4-10.5); GFR AFRICAN-AMERICAN > 60; GFR NON-AFRICAN AMERICAN > 60
[2016-09-07 19:46] LABS: SALICYLATE < 1 mg/dL (2.0-20.0)
[2016-09-07 19:48] LABS: ACETAMINOPHEN < 10.0 ug/ml (10.0-20.0)
[2016-09-08 06:58] VITALS: BP 116/87; PULSE 78; RESP 18; O2SAT 96
== END 2016-09-08 06:57 | disposition home or self-care (01) ==
LOC: ED 17:31 → EROBSV 17:51
PROVIDERS: ADMIT Emergency Medicine; ATTEND Emergency Medicine
DX: R41.82 Altered mental status, unspecified (principal); E11.9 Type 2 diabetes mellitus without complications; F17.210 Nicotine dependence, cigarettes, uncomplicated
CPT/HCPCS: 36415; 80053; 85025; 87040; 96374; 99285; G0378; G0480

== ENCOUNTER 2017-02-04 17:53 | Emergency (ER) | payer MEDICARE ==
[2017-02-04 18:16] VITALS: RESP 16; TEMP 97.6
[2017-02-04 18:22] VITALS: BMI 25.0
--- NOTE | 2017-02-04 19:34 | ED PDOC ---
Arrival/HPI - General Historian: Patient <Brianna Zepeda - Last Filed: 02/05/17 02:21> <Jean Ryder - Last Filed: 02/05/17 02:26> - General Chief Complaint: Alcohol Ingestion Time Seen by Provider: 02/04/17 18:04 - History of Present Illness Narrative History of Present Illness (Text): 02/04/17 19:58 56yr old male presents today brought in by ambulance after being found walking on the streets. pt does not want to give me any information. states he didnt drink alcohol. will not answer any questions 02/04/17 20:08 patient initially not answering any of my questions. pt is NOW speaking in full sentences. denies any pain. denies trauma or injury today. pt does state that he hit his right lower leg on cane. denies drug use. denies alcohol use. 02/05/17 02:14 pt now admits to taking [address] that he states a man gave them to him and said they were "good". pt states he has hx of chronic back pain and recently has been taking drugs on the street. (Brianna Zepeda) Past Medical History - Provider Review Nursing Documentation Reviewed: Yes - Travel History Have you recently traveled outside [place] w/in the past 3 mons?: No - Infectious Disease Hx of Infectious Diseases: None - Tetanus Immunization Tetanus Immunization: Unknown - Past Medical History Past Medical History: No Previous - Cardiac Hx Hypertension: No - Pulmonary Hx Respiratory Disorders: No Hx Tuberculosis: No - HEENT Hx HEENT Disorder: No - Renal Hx Renal Disorder: No - Endocrine/Metabolic Hx Endocrine Disorders: Yes Hx Diabetes Mellitus Type 2: Yes - Hematological/Oncological Hx Blood Disorders: No - Integumentary Hx Dermatological Disorder: No - Musculoskeletal/Rheumatological Hx Falls: Yes - Gastrointestinal Hx Gastrointestinal Disorders: No - Genitourinary/Gynecological Hx Sexually Transmitted Diseases: No - Psychiatric Hx Depression: No Hx Substance Use: No (denies) - Past Surgical History Past Surgical History: Unable to Obtain - Surgical History Hx Orthopedic Surgery: Yes (back surgery x2) - Anesthesia Hx Anesthesia: Yes Hx Anesthesia Reactions: No Hx Malignant Hyperthermia: No - Suicidal Assessment Feels Threatened In Home Enviroment: No <Brianna Zepeda - Last Filed: 02/05/17 02:21> Family/Social History - Physician Review Nursing Documentation Reviewed: Yes Family/Social History: Unknown Family HX Smoking Status: Heavy Smoker > 10 Cigarettes Daily Hx Alcohol Use: No (pt denies) Hx Substance Use: No (denies) Hx Substance Use Treatment: No <Brianna Zepeda - Last Filed: 02/05/17 02:21> Allergies/Home Meds <Brianna Zepeda - Last Filed: 02/05/17 02:21> <Jean Ryder - Last Filed: 02/05/17 02:26> Allergies/Adverse Reactions: Allergies No Known Allergies Allergy (Verified 02/04/17 18:24) Home Medications: Home Meds Medication Instructions Recorded Confirmed No Known Home Med 02/04/17 02/04/17 Review of Systems - Review of Systems Eyes: absent: Vision Changes Respiratory: absent: SOB, Cough Cardiovascular: absent: Chest Pain, Palpitations Gastrointestinal: absent: Abdominal Pain Musculoskeletal: absent: Arthralgias, Back Pain, Neck Pain Skin: absent: Rash, Pruritis Neurological: absent: Headache, Dizziness Psychiatric: absent: Anxiety, Depression, Suicidal Ideation <Brianna Zepeda - Last Filed: 02/05/17 02:21> Physical Exam Vital Signs Reviewed: Yes Temperature: Afebrile Blood Pressure: Normal Pulse: Regular Respiratory Rate: Normal Appearance: Positive for: Well-Appearing, Non-Toxic, Comfortable Pain Distress: None Mental Status: Positive for: other (alert) Finger Stick Blood Glucose: 90 - Systems Exam Head: Present: Atraumatic Mouth: Present: Moist Mucous Membranes Neck: Present: Normal Range of Motion Respiratory/Chest: Present: Clear to Auscultation Cardiovascular: Present: Regular Rate and Rhythm Abdomen: No: Tenderness, Distention, Rebound, Guarding Back: Present: Normal Inspection Upper Extremity: Present: Normal Inspection Lower Extremity: Present: Normal Inspection Neurological: Present: GCS=15, Speech Normal Skin: Present: Warm, Dry Psychiatric: Present: Alert <Brianna Zepeda - Last Filed: 02/05/17 02:21> Vital Signs Temp Pulse Resp BP Pulse Ox 02/05/17 02:25 89 16 132/72 100 02/04/17 18:15 97.6 F 88 16 146/88 96 Medical Decision Making <Brianna Zepeda - Last Filed: 02/05/17 02:21> <BritniJean - Last Filed: 02/05/17 02:26> ED Course and Treatment: 02/04/17 20:07 pt BIBA for intoxication/drug use; found walking on the streets; pt does not want to give any information CBC WNL CMP WNL Tylenol WNL Salicylate WNL Alcohol level WNL Urine drug screen wnl UA; wnl cxr: wnl ekg:normal sinus rhythm at [address] elevations normal axis ct head; FINDINGS: Brain: Mild atrophy. No intracranial hemorrhage. No mass. Moderate encephalomalacia within the frontal regions. No definite edema. Ventricles: No hydrocephalus. Bones/joints: No acute fracture. [place] hole. Soft tissues: Unremarkable. Sinuses: Scattered minimal mucosal thickening of ethmoid sinuses. Mastoid air cells: No mastoid effusion. Orbits: Unremarkable as visualized. IMPRESSION: 1. No definite acute intracranial abnormality. 2. Incidental/non-acute findings are described above 02/05/17 02:06 pt alert and oriented; eating and drinking in er; walking around ER with steady gait. pt now admits to taking 3 unknown pills given to him by a man on the streets.pt denies any complaints at present time. denies SI or HI. impression; drug use increase fluids follow up with the primary care physician within the next 2 days. return if symptoms worsen,persist or if new symptoms develop. (Brianna Zepeda) - Lab Interpretations Lab Results: 02/04/17 19:00 02/04/17 19:00 Lab Results 02/04/17 19:43: Urine Opiates Screen Negative, Urine Methadone Screen Negative, Ur Barbiturates Screen Negative, Ur Phencyclidine Scrn Negative, Ur Amphetamines Screen Negative, U Benzodiazepines Scrn Negative, U Oth Cocaine Metabols Negative, U Cannabinoids Screen Negative 02/04/17 19:43: Urine Color Yellow, Urine Appearance Clear, Urine pH 7.0, Ur Specific [place] 1.010, Urine Protein Negative, Urine Glucose (UA) Negative, Urine Ketones Negative, Urine Blood Negative, Urine Nitrate Negative, Urine Bilirubin Negative, Urine Urobilinogen 0.2, Ur Leukocyte Esterase Negative 02/04/17 19:00: Alcohol, Quantitative < 10 02/04/17 19:00: Salicylates < 1 L, Acetaminophen < 10.0 L 02/04/17 19:00: Sodium 144, Potassium 4.6, Chloride 106, Carbon Dioxide 30, Anion Gap 14, BUN 19, Creatinine 1.0, Est GFR ( Amer) > 60, Est GFR (Non- Af Amer) > 60, Random Glucose 93, Calcium 9.6, Total Bilirubin 0.6, AST 29, ALT 30, Alkaline Phosphatase 60, Total Creatine Kinase 47, Total Protein 8.0, Albumin 4.5, Globulin 3.5, Albumin/Globulin Ratio 1.3 02/04/17 19:00: WBC 7.5, RBC 5.70, Hgb 15.5, Hct 47.1, MCV 82.6, MCH 27.2, MCHC 32.9, RDW 16.3 H, Plt Count 248, MPV 9.8, Gran % 47.3 L, Lymph % (Auto) 38.9 H, [place] % (Auto) 10.0 H, Eos % (Auto) 2.7, Baso % (Auto) 1.1, Gran # 3.57, Lymph # 2.9, [place] # 0.8 H, Eos # 0.2, Baso # 0.08 - RAD Interpretation Radiology Orders: 02/04/17 18:48 HEAD W/O CONTRAST [CT] Stat CHEST PORTABLE [RAD] Stat - PA / HRIS DEVELOPER / Resident Statement / has reviewed & agrees with the documentation as recorded. / has examined the patient and agrees with the treatment plan. <Jean Ryder - Last Filed: 02/05/17 02:26> Disposition/Present on Arrival - Present on Arrival Any Indicators Present on Arrival: No History of DVT/PE: No History of Uncontrolled Diabetes: No Urinary Catheter: No History of Decub. Ulcer: No History Surgical Site Infection Following: None - Disposition Have Diagnosis and Disposition been Completed?: Yes Disposition Time: 02:08 Patient Plan: Discharge <Brianna Zepeda - Last Filed: 02/05/17 02:21> <Jean Ryder - Last Filed: 02/05/17 02:26> - Disposition Diagnosis: Drug use Disposition: HOME/ ROUTINE Condition: GOOD Additional Instructions: increase fluids follow up with the primary care physician within the next 2 days. return if symptoms worsen,persist or if new symptoms develop. Referrals: Criptext Profile Req, [Primary Care Provider] - Follow up with primary Matty Linda MD [Staff Provider] - Follow up with primary Forms: [place] ([place])
[2017-02-04 19:38] LABS: BASO # 0.08 K/mm3 (0.0-2.0); BASO % 1.1 % (0.0-3.0); EOS # 0.2 (0.0-0.7); EOS % 2.7 % (1.5-5.0); GRAN # 3.57 (1.4-6.5); GRAN % 47.3 % (50.0-68.0); HEMATOCRIT 47.1 % (42.0-52.0); LYMPH # 2.9 (1.2-3.4); LYMPH % 38.9 % (22.0-35.0); MEAN CELL VOLUME 82.6 fl (80.0-105.0); MEAN CORPUSCULAR HEMOGLOBIN 27.2 pg (25.0-35.0); MEAN CORPUSCULAR HGB CONC 32.9 g/dl (31.0-37.0); MEAN PLATELET VOLUME 9.8 fl (7.0-11.0); MONO # 0.8 (0.1-0.6); RED CELL DISTRIBUTION WIDTH 16.3 % (11.5-14.5); WHITE BLOOD COUNT 7.5 10^3/ul (4.5-11.0)
[2017-02-04 19:51] LABS: ALB/GLOB RATIO 1.3 (1.1-1.8); BILIRUBIN,TOTAL 0.6 mg/dL (0.2-1.3); CALCIUM 9.6 mg/dL (8.4-10.5); GFR AFRICAN-AMERICAN > 60; GLUCOSE,RANDOM 93 mg/dL (70-110)
[2017-02-04 19:52] LABS: URINE BILIRUBIN NEGATIVE (NEGATIVE); URINE BLOOD NEGATIVE (NEGATIVE); URINE GLUCOSE (UA) NEGATIVE (NEGATIVE); URINE KETONE NEGATIVE (NEGATIVE); URINE LEUKOCYTE ESTERASE NEGATIVE Leu/uL (NEGATIVE); URINE PROTEIN NEGATIVE mg/dL (<30 mg/dL); URINE UROBILINOGEN 0.2 E.U./dL (<1 E.U./dL)
[2017-02-04 19:53] LABS: URINE APPEARANCE CLEAR (CLEAR); URINE COLOR YELLOW (YELLOW)
[2017-02-04 19:54] LABS: ALKALINE PHOSPHATASE 60 U/L (38-126); ALT/SGPT 30 U/L (7-56); AST/SGOT 29 U/L (17-59); BLOOD UREA NITROGEN 19 mg/dL (7-21); CARBON DIOXIDE 30 mmol/L (21-33); CHLORIDE 106 mmol/L (98-107); POTASSIUM 4.6 mmol/L (3.6-5.0); SODIUM 144 mmol/L (132-148)
--- NOTE | 2017-02-05 01:16 | CT ---
EXAM: CT Head Without Intravenous Contrast CLINICAL HISTORY: 56 years old, male; Signs and symptoms; Altered mental status/memory loss; Additional info: AMS TECHNIQUE: Axial computed tomography images of the head/brain without intravenous contrast. All CT scans at this facility use one or more dose reduction techniques, viz.: automated exposure control; ma/kV adjustment per patient size (including targeted exams where dose is matched to indication; i.e. head); or iterative reconstruction technique. COMPARISON: CT - HEAD W/O CONTRAST 2016-09-06 15:20 FINDINGS: Brain: Mild atrophy. No intracranial hemorrhage. No mass. Moderate encephalomalacia within the frontal regions. No definite edema. Ventricles: No hydrocephalus. Bones/joints: No acute fracture. [place] hole. Soft tissues: Unremarkable. Sinuses: Scattered minimal mucosal thickening of ethmoid sinuses. Mastoid air cells: No mastoid effusion. Orbits: Unremarkable as visualized. IMPRESSION: 1. No definite acute intracranial abnormality. 2. Incidental/non-acute findings are described above.
[2017-02-05 02:25] VITALS: BP 132/72; PULSE 89; O2SAT 100
--- NOTE | 2017-02-05 08:33 | RAD ---
HISTORY: ams/etoh/drug abuse COMPARISON: Comparison is made to 09/06/2016 FINDINGS: LUNGS: No active pulmonary disease. PLEURA: No significant pleural effusion identified, no pneumothorax apparent. CARDIOVASCULAR: Normal. OSSEOUS STRUCTURES: No significant abnormalities. VISUALIZED UPPER ABDOMEN: Normal. OTHER FINDINGS: None. IMPRESSION: No active disease.
--- NOTE | 2017-02-05 11:43 | CARD ---
APPROVED REPORT EKG Measurement Heart [id number] <Conclusion> Normal sinus rhythm NSSTW changes No change
== END 2017-02-05 02:13 | disposition home or self-care (01) ==
LOC: ED 17:53
DX: F19.90 Other psychoactive substance use, unspecified, uncomplicated (principal)
CPT/HCPCS: 70450; 71010; 80053; 81003; 82550; 85025; 93005; 99284; G0480

== ENCOUNTER 2017-02-06 18:09 | Emergency (ER) | payer MEDICARE ==
[2017-02-06 18:10] VITALS: BMI 25.0
[2017-02-06 18:25] VITALS: RESP 16; O2SAT 95
[2017-02-06] MEDS ORDERED: TDAP Vaccine 0.5 mL Syr IM ONE (18:53)
--- NOTE | 2017-02-06 18:59 | ED PDOC ---
Arrival/HPI - General Chief Complaint: Trauma Time Seen by Provider: 02/06/17 18:44 Historian: Patient - History of Present Illness Narrative History of Present Illness (Text): 02/06/17 18:55 56 y/o male, pmh including chronic lower back pain which he is on heavy narcotic pain med/insomnia on ambien, last tetanus doesn't remember, biba with the family member due to the fall on the face at home. Apparent the patient took the ambien earlier and found to be drowsy, fall in front of the house, got back up and went inside the house to sleep. Family came home and noted him to have blood on the nasal bridge as they are concerned, called the ambulance and bring the patient to the ER. Pt. stated that he doesn't have any pain or discomfort, no chest pain or shortness of breath, no palpitation, no change in vision, no LOC, no other medical or psychological complaints. Past Medical History - Provider Review Nursing Documentation Reviewed: Yes - Infectious Disease Hx of Infectious Diseases: None - Tetanus Immunization Tetanus Immunization: Unknown - Past Medical History Past Medical History: No Previous - Cardiac Hx Hypertension: No - Pulmonary Hx Respiratory Disorders: No Hx Tuberculosis: No - HEENT Hx HEENT Disorder: No - Renal Hx Renal Disorder: No - Endocrine/Metabolic Hx Endocrine Disorders: Yes Hx Diabetes Mellitus Type 2: Yes - Hematological/Oncological Hx Blood Disorders: No - Integumentary Hx Dermatological Disorder: No - Musculoskeletal/Rheumatological Hx Falls: Yes - Gastrointestinal Hx Gastrointestinal Disorders: No - Genitourinary/Gynecological Hx Sexually Transmitted Diseases: No - Psychiatric Hx Depression: No Hx Substance Use: No (denies) - Past Surgical History Past Surgical History: Unable to Obtain - Surgical History Hx Orthopedic Surgery: Yes (back surgery x2) - Anesthesia Hx Anesthesia: Yes Hx Anesthesia Reactions: No Hx Malignant Hyperthermia: No - Suicidal Assessment Feels Threatened In Home Enviroment: No Family/Social History - Physician Review Nursing Documentation Reviewed: Yes Family/Social History: Unknown Family HX Smoking Status: Heavy Smoker > 10 Cigarettes Daily Hx Alcohol Use: Yes (pt denies) Hx Substance Use: No (denies) Hx Substance Use Treatment: No Allergies/Home Meds Allergies/Adverse Reactions: Allergies No Known Allergies Allergy (Verified 02/04/17 18:24) Review of Systems - Review of Systems Constitutional: absent: Fatigue, Fevers Eyes: absent: Vision Changes ENT: absent: Hearing Changes Respiratory: absent: SOB, Cough Cardiovascular: absent: Chest Pain Gastrointestinal: absent: Abdominal Pain, Nausea, Vomiting Skin: Laceration, Other (+abrasion ). absent: Rash, Pruritis, Skin Lesions, Abscess, Ulcer, Cellulitis Neurological: absent: Headache Psychiatric: absent: Anxiety, Depression, Suicidal Ideation Physical Exam Vital Signs Reviewed: Yes Vital Signs Temp Pulse Resp BP Pulse Ox 02/06/17 22:48 98.0 F 88 16 104/60 95 02/06/17 22:40 88 16 104/69 95 02/06/17 18:24 98 F 86 16 135/80 95 Temperature: Afebrile Blood Pressure: Normal Pulse: Regular Respiratory Rate: Normal Appearance: Positive for: Well-Appearing, Non-Toxic, Comfortable Pain Distress: None Mental Status: Positive for: Alert and Oriented X 3 Finger Stick Blood Glucose: 99 - Systems Exam Head: Present: Atraumatic, Normocephalic, Other (Facial: +ttp on the nasal bridge region with visible L shaped superficial abrasion approx. 2.5cm noted ). No: Tenderness, Contusion, Swelling, Ecchymosis, Abrasion Pupils: Present: PERRL Extroacular Muscles: Present: EOMI Conjunctiva: Present: Normal Mouth: Present: Moist Mucous Membranes Pharnyx: No: ERYTHEMA, EXUDATE, TONSILS ENLARGED, Uvular Deviation, Muffled/ Hoarse Voice Nose (External): Present: Abrasion. No: Contusion, Laceration, Lesions Nose (Internal): Present: Normal Inspection, No Active Bleeding. No: Rhinorrhea , Septal Hematoma, Epistaxis Neck: Present: Normal Range of Motion, Trachea Midline. No: Meningeal Signs, MIDLINE TENDERNESS, Paraspinal Tenderness, Lymphadenopathy Respiratory/Chest: Present: Clear to Auscultation, Good Air Exchange. No: Respiratory Distress, Accessory Muscle Use, Wheezes, Decreased Breath Sounds, Rales, Retracting, Rhonchi, Tachypneic, Tender to Palpation Cardiovascular: Present: Regular Rate and Rhythm, Normal S1, S2. No: Murmurs Abdomen: Present: Normal Bowel Sounds. No: Tenderness, Distention, Peritoneal Signs, Rebound, Guarding Back: Present: Normal Inspection, Other (Thoracic to LS spine: no midline tenderness or step off, FROM without limitation. ). No: CVA Tenderness, Midline Tenderness, Paraspinal Tenderness, Pain with Leg Raise, Decubitus Ulcer Upper Extremity: Present: Normal Inspection, Normal ROM, NORMAL PULSES, Neurovascularly Intact. No: Cyanosis, Edema, Tenderness, Swelling, Deformity Lower Extremity: Present: Normal Inspection, NORMAL PULSES, Normal ROM. No: Edema, Tenderness, Swelling, Deformity Neurological: Present: GCS=15, Speech Normal, Motor Func Grossly Intact, Gait Normal, Memory Normal Skin: Present: Warm, Dry, Normal Color. No: Rashes Psychiatric: Present: Alert, Oriented x 3, Normal Insight, Normal Concentration Medical Decision Making ED Course and Treatment: 02/06/17 19:01 -Labs -CT head/facial -Tdap -Wound irrigate with normal saline, clean with betadine, bacitracin and gauze dressing. 02/06/17 21:32 -EKG: NSR @ 85 BPM, no ST elevation or depression, no T wave inversion. -Labs are non-significant -CT Head show no evidence of acute intracranial injury or fractures. Bilateral frontal and temporal lobe encephalomalacia again seen. -CT facial: - Bilateral acute nasal bone fractures. -I irrigated the wound with 1000cc normal saline, clean with betadine, no visible or palpable foreign bodies noted. -Bacitracin and gauze dressing. IV ancef 2gm ordered. Pt. has no septal hematoma. -I discussed the labs and radiology results with the patient and family, will give augmentin and ENT. -Discharge home with augmentin, bacitracin oinment, tylenol, avoid blowing or picking the nose, ice compression, follow up with your own pmd and ENT within 2 days, return to the ER for any new or worsening signs or symptoms. - Lab Interpretations Lab Results: 02/06/17 19:45 02/06/17 19:45 Lab Results 02/06/17 19:45: WBC 7.9, RBC 5.89, Hgb 16.1, Hct 48.4, MCV 82.2, MCH 27.3, MCHC 33.3, RDW 16.2 H, Plt Count 272, MPV 10.1, Gran % 62.2, Lymph % (Auto) 28.0, [place] % (Auto) 6.9 H, Eos % (Auto) 2.1, Baso % (Auto) 0.8, Gran # 4.92, Lymph # 2.2, [place] # 0.6, Eos # 0.2, Baso # 0.06 02/06/17 19:45: Alcohol, Quantitative < 10 02/06/17 19:45: Salicylates < 1 L, Acetaminophen < 10.0 L 02/06/17 19:45: Sodium 141, Potassium 4.2, Chloride 104, Carbon Dioxide 26, Anion Gap 15, BUN 14, Creatinine 1.0, Est GFR ( Amer) > 60, Est GFR (Non- Af Amer) > 60, Random Glucose 90, Calcium 9.9, Magnesium 2.1, Total Bilirubin 0.7, AST 28, ALT 38, Alkaline Phosphatase 72, Total Creatine Kinase 72, Total Protein 8.3, Albumin 4.7, Globulin 3.6, Albumin/Globulin Ratio 1.3 I have reviewed the lab results: Yes Interpretation: No clinic. lab abnormalty - RAD Interpretation Radiology Orders: 02/06/17 18:53 HEAD W/O CONTRAST [CT] Stat MAXILLOFACIAL W/O CONTRAST [CT] Stat CT Head: FINDINGS: BRAIN: Moderate to large areas of cystic encephalomalacia again seen in the inferior frontal lobes bilaterally, as well as smaller areas of encephalomalacia in the anterior inferior temporal lobes bilaterally. Findings could be related to remote traumatic injury. Appearance is unchanged. Physiologic basal ganglia calcification. Diffuse, age-related cortical atrophy and ventriculomegaly. No significant acute abnormality identified. No acute hemorrhage seen within the brain. No acute extra-axial fluid collections visualized. No evidence of significant mass effect within the brain. VENTRICLES: See above. BONES/JOINTS:Chronic appearing deformity of the right frontal bone anteriorly, which could be related to a remote injury. No acute fractures are seen. SOFT TISSUES: No acute abnormality of the visualized soft tissues is seen. SINUSES: Visualized paranasal sinuses appear clear. MASTOID AIR CELLS: Mastoid air cells appear clear. IMPRESSION: - No evidence of acute intracranial injury or fractures. - Bilateral frontal and temporal lobe encephalomalacia again seen. - See above for remaining findings. Thank you for allowing us to participate in the care of your patient. Dictated and Authenticated by: Alix Valentin MD 02/06/2017 9:05 PM Eastern Time ([place] & [place]) CT Facial: FINDINGS: BONES/JOINTS: Bilateral nasal bone fractures, which appear acute and minimally displaced. Stable appearance of a linear lucency in the right frontal anteriorly, which could represent an old fracture. Marked degenerative disc disease of the cervical spine incidentally noted. No additional facial bone fractures visualized. SOFT TISSUES: Possible tiny soft tissue foreign body in the left nasal soft tissues on image 81/series 2. Recommend clinical correlation. Air and swelling in the nasal soft tissues bilaterally. ORBITS: Intraorbital soft tissues appear grossly intact. No evidence of significant orbital emphysema. SINUSES: Mild mucosal thickening in the right maxillary sinus. Remaining visualized paranasal sinuses appear clear. No evidence of sinus fluid levels. IMPRESSION: - Bilateral acute nasal bone fractures. - See above for remaining findings. Thank you for allowing us to participate in the care of your patient. Dictated and Authenticated by: Alix Valentin MD 02/06/2017 9:13 PM Eastern Time ([place] & [place] Academic Coordinator: Radiologist - EKG Interpretation EKG Interpretation (Text): 02/06/17 21:36 -EKG: NSR @ 85 BPM, no ST elevation or depression, no T wave inversion. Interpreted by ED Physician: Yes Type: 12 lead EKG - Medication Orders Current Medication Orders: Discontinued Medications Cefazolin Sodium 2 gm/ Sodium (Chloride) 100 mls @ 200 mls/hr IVPB STAT STA Stop: 02/06/17 21:54 Last Admin: 02/06/17 21:55 Dose: 200 mls/hr eMAR Start Stop Document 02/06/17 21:55 IT (Rec: 02/06/17 21:56 IT [id number]) Intravenous Solution Start Date 02/06/17 Start Time 21:56 End Date 02/06/17 End time 22:25 Total Infusion Time 29 Tetanus/Reduced Diphtheria/Acell Pertussis (Boostrix Vaccine Inj) 0.5 ml IM .ONCE ONE Stop: 02/06/17 18:54 Last Admin: 02/06/17 20:08 Dose: 0.5 ml Immunization Registry Document 02/06/17 20:08 IT (Rec: 02/06/17 20:08 IT [id number]) Immunization Registry Consent Date 02/04/17 - 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 Disposition/Present on Arrival - Present on Arrival Any Indicators Present on Arrival: No History of DVT/PE: No History of Uncontrolled Diabetes: No Urinary Catheter: No History of Decub. Ulcer: No History Surgical Site Infection Following: None - Disposition Have Diagnosis and Disposition been Completed?: Yes Diagnosis: Accidental fall, Nasal fracture, Facial abrasion Disposition: HOME/ ROUTINE Disposition Time: 21:36 Patient Plan: Discharge Condition: GOOD Additional Instructions: -Discharge home with augmentin, bacitracin oinment, tylenol, avoid blowing or picking the nose, ice compression, follow up with your own pmd and ENT within 2 days, return to the ER for any new or worsening signs or symptoms. Prescriptions: Acetaminophen [Tylenol 325mg tab] 2 tab PO QID PRN #30 tab PRN Reason: Other Amoxicillin/Potassium Clav [Amoxicillin/Clavulanate Potassium 875 mg-125 ] 1 tab PO BID #20 tab Bacitracin Ointment [Bacitracin] 1 appful TOP BID #15 g Referrals: Diallo West MD [Primary Care Provider] - Follow up with primary Ricci Souza DO [Staff Provider] - Follow up with primary Forms: WORK NOTE
[2017-02-06 19:57] LABS: BASO # 0.06 K/mm3 (0.0-2.0); BASO % 0.8 % (0.0-3.0); EOS # 0.2 (0.0-0.7); EOS % 2.1 % (1.5-5.0); GRAN # 4.92 (1.4-6.5); GRAN % 62.2 % (50.0-68.0); HEMATOCRIT 48.4 % (42.0-52.0); LYMPH # 2.2 (1.2-3.4); MEAN CELL VOLUME 82.2 fl (80.0-105.0); MEAN CORPUSCULAR HEMOGLOBIN 27.3 pg (25.0-35.0); MEAN CORPUSCULAR HGB CONC 33.3 g/dl (31.0-37.0); MEAN PLATELET VOLUME 10.1 fl (7.0-11.0); MONO # 0.6 (0.1-0.6); MONO % 6.9 % (1.0-6.0); RED CELL DISTRIBUTION WIDTH 16.2 % (11.5-14.5); WHITE BLOOD COUNT 7.9 10^3/ul (4.5-11.0)
[2017-02-06 20:15] LABS: ALB/GLOB RATIO 1.3 (1.1-1.8); ALKALINE PHOSPHATASE 72 U/L (38-126); ALT/SGPT 38 U/L (7-56); AST/SGOT 28 U/L (17-59); BILIRUBIN,TOTAL 0.7 mg/dL (0.2-1.3); BLOOD UREA NITROGEN 14 mg/dL (7-21); CALCIUM 9.9 mg/dL (8.4-10.5); CARBON DIOXIDE 26 mmol/L (21-33); CHLORIDE 104 mmol/L (98-107); GFR AFRICAN-AMERICAN > 60; GLUCOSE,RANDOM 90 mg/dL (70-110); MAGNESIUM 2.1 mg/dL (1.7-2.2); POTASSIUM 4.2 mmol/L (3.6-5.0); SODIUM 141 mmol/L (132-148); TOTAL PROTEIN 8.3 g/dL (5.8-8.3)
--- NOTE | 2017-02-06 21:05 | CT ---
EXAM: CT Head Without Intravenous Contrast EXAM DATE/TIME: 02/06/2017 6:53 PM CLINICAL HISTORY: 56 years old, male; Injury or trauma; Fall; Initial encounter; Blunt trauma (contusions or hematomas) TECHNIQUE: Axial computed tomography images of the head/brain without intravenous contrast. All CT scans at this facility use one or more dose reduction techniques, viz.: automated exposure control; ma/kV adjustment per patient size (including targeted exams where dose is matched to indication; i.e. head); or iterative reconstruction technique. COMPARISON: Prior head CT of 2017-02-05 FINDINGS: BRAIN: Moderate to large areas of cystic encephalomalacia again seen in the inferior frontal lobes bilaterally, as well as smaller areas of encephalomalacia in the anterior inferior temporal lobes bilaterally. Findings could be related to remote traumatic injury. Appearance is unchanged. Physiologic basal ganglia calcification. Diffuse, age-related cortical atrophy and ventriculomegaly. No significant acute abnormality identified. No acute hemorrhage seen within the brain. No acute extra-axial fluid collections visualized. No evidence of significant mass effect within the brain. VENTRICLES: See above. BONES/JOINTS:Chronic appearing deformity of the right frontal bone anteriorly, which could be related to a remote injury. No acute fractures are seen. SOFT TISSUES: No acute abnormality of the visualized soft tissues is seen. SINUSES: Visualized paranasal sinuses appear clear. MASTOID AIR CELLS: Mastoid air cells appear clear. IMPRESSION: - No evidence of acute intracranial injury or fractures. - Bilateral frontal and temporal lobe encephalomalacia again seen. - See above for remaining findings.
--- NOTE | 2017-02-06 21:13 | CT ---
EXAM: CT Maxillofacial Without Intravenous Contrast EXAM DATE/TIME: 02/06/2017 6:53 PM CLINICAL HISTORY: 56 years old, male; Injury or trauma; Fall; Initial encounter; Blunt trauma (contusions or hematomas); Nose; Additional info: Fall, nasal bridge injury TECHNIQUE: Axial computed tomography images of the face without intravenous contrast. All CT scans at this facility use one or more dose reduction techniques, viz.: automated exposure control; ma/kV adjustment per patient size (including targeted exams where dose is matched to indication; i.e. head); or iterative reconstruction technique. Coronal and sagittal reformatted images were created and reviewed. COMPARISON: Prior head CT of 07/30/2016. FINDINGS: BONES/JOINTS: Bilateral nasal bone fractures, which appear acute and minimally displaced. Stable appearance of a linear lucency in the right frontal anteriorly, which could represent an old fracture. Marked degenerative disc disease of the cervical spine incidentally noted. No additional facial bone fractures visualized. SOFT TISSUES: Possible tiny soft tissue foreign body in the left nasal soft tissues on image 81/series 2. Recommend clinical correlation. Air and swelling in the nasal soft tissues bilaterally. ORBITS: Intraorbital soft tissues appear grossly intact. No evidence of significant orbital emphysema. SINUSES: Mild mucosal thickening in the right maxillary sinus. Remaining visualized paranasal sinuses appear clear. No evidence of sinus fluid levels. IMPRESSION: - Bilateral acute nasal bone fractures. - See above for remaining findings.
[2017-02-06] MEDS ORDERED: ceFAZolin 2 GM in Sodium Chloride 0.9% 100 ML IVPB STA (21:25)
[2017-02-06 22:41] VITALS: PULSE 88
[2017-02-06 22:52] VITALS: BP 104/60; TEMP 98
--- NOTE | 2017-02-07 10:19 | CARD ---
APPROVED REPORT EKG Measurement Heart [id number] 140P72 [id number] <Conclusion> Normal sinus rhythm Nonspecific T wave abnormality Prolonged QT No change
== END 2017-02-06 22:52 | disposition home or self-care (01) ==
LOC: ED 18:09
DX: S02.2XXA Fracture of nasal bones, initial encounter for closed fracture (principal); S00.81XA Abrasion of other part of head, initial encounter; W18.30XA Fall on same level, unspecified, initial encounter; Y92.009 Unspecified place in unspecified non-institutional (private) residence as the place of occurrence of the external cause; Z23 Encounter for immunization
CPT/HCPCS: 70450; 70486; 80053; 82550; 83735; 85025; 90471; 90715; 93005; 96365; 99285; G0480; J0690

== ENCOUNTER 2017-05-31 14:15 | Emergency (ER) | payer MEDICARE ==
[2017-05-31 14:26] VITALS: BMI 26.4
[2017-05-31] MEDS ORDERED: Naloxone 0.4 mg/ml Inj (Adult) ONE (14:36)
[2017-05-31] MEDS ORDERED: Sodium Chloride 0.9% 500 ML IV STA (14:42)
[2017-05-31] MEDS ORDERED: Naloxone 0.4 mg/ml Inj (Adult) IVP STA (14:44)
--- NOTE | 2017-05-31 14:48 | ED PDOC ---
Arrival/HPI - General Chief Complaint: Substance Abuse Time Seen by Provider: 05/31/17 14:42 Historian: Patient, EMS - History of Present Illness Narrative History of Present Illness (Text): 05/31/17 14:45 pt was found wondering in the street, bystanders found patient not acting normal ; 911 was called and EMS brought patient to the ED/hospital for further eval; pt states he has no complaints; pt states no cp/sob/abd pain; pt denied urinary/ bowel changes; pt is here for further eval pt denied SI/HI, pt denied hallucinations - visual/tactile/auditory PCP: DR Molly West Time/Duration: Prior to Arrival Symptom Onset: Sudden Symptom Course: Unchanged Activities at Onset: Other (pt was found walking on the street) Context: Walking, Street Past Medical History - Provider Review Nursing Documentation Reviewed: Yes - Travel History Have you recently traveled outside [place] w/in the past 3 mons?: No - Past History Past History: No Previous - Infectious Disease Hx of Infectious Diseases: None - Tetanus Immunization Tetanus Immunization: Unknown - Past Medical History Past Medical History: No Previous - Cardiac Hx Hypertension: No - Pulmonary Hx Respiratory Disorders: No Hx Tuberculosis: No - HEENT Hx HEENT Disorder: No - Renal Hx Renal Disorder: No - Endocrine/Metabolic Hx Endocrine Disorders: Yes Hx Diabetes Mellitus Type 2: Yes - Hematological/Oncological Hx Blood Disorders: No - Integumentary Hx Dermatological Disorder: No - Musculoskeletal/Rheumatological Hx Falls: Yes - Gastrointestinal Hx Gastrointestinal Disorders: No - Genitourinary/Gynecological Hx Sexually Transmitted Diseases: No - Psychiatric Hx Depression: No Hx Substance Use: No (denies) - Past Surgical History Past Surgical History: Unable to Obtain - Surgical History Hx Orthopedic Surgery: Yes (back surgery x2) - Anesthesia Hx Anesthesia: Yes Hx Anesthesia Reactions: No Hx Malignant Hyperthermia: No - Suicidal Assessment Feels Threatened In Home Enviroment: No Family/Social History - Physician Review Nursing Documentation Reviewed: Yes Family/Social History: No Known Family HX Smoking Status: Heavy Smoker > 10 Cigarettes Daily Hx Alcohol Use: Yes (pt denies) Hx Substance Use: No (denies) Hx Substance Use Treatment: No Allergies/Home Meds Allergies/Adverse Reactions: Allergies No Known Allergies Allergy (Verified 05/31/17 14:26) Home Medications: Home Meds Medication Instructions Recorded Confirmed Gabapentin [Neurontin] 800 mg PO QID 05/31/17 05/31/17 Review of Systems - Review of Systems Constitutional: Normal Eyes: Normal ENT: Normal Respiratory: SOB, Cough Cardiovascular: Normal Gastrointestinal: Normal Genitourinary Male: Normal Musculoskeletal: Normal Skin: Normal Neurological: Normal Endocrine: Normal Hemo/Lymphatic: Normal Psychiatric: Normal Physical Exam Vital Signs Reviewed: Yes Vital Signs Temp Pulse Resp BP Pulse Ox 05/31/17 14:16 98.1 F 100 H 18 118/78 89 L Temperature: Afebrile Blood Pressure: Normal Pulse: Regular Respiratory Rate: Other (hypoxia) Appearance: Positive for: Well-Appearing, Non-Toxic, Uncomfortable, Other ( resting in bed, fatigued appearing, NAD, cooperative) Pain Distress: None Mental Status: Positive for: other (alert/arousable to pain/voice; oriented x 2 (not to date/time)) Finger Stick Blood Glucose: 89 - Systems Exam Head: Present: Atraumatic, Normocephalic Pupils: Present: Other (pinpoint pupils, pupils equal, no nystagmus, no photophobia, sclera anicteric) Extroacular Muscles: Present: EOMI Conjunctiva: Present: Normal Ears: Present: Normal Mouth: Present: Normal Teeth, Other (no drooling/stridor, no exudate/lesions) Pharnyx: Present: Normal, Other (no drooling/stridor, no exudate/lesions) Nose (External): Present: Atraumatic Nose (Internal): Present: Normal Inspection Neck: Present: Normal Range of Motion, Trachea Midline, Other (no nuchal rigidity, no meningeal signs). No: Meningeal Signs, MIDLINE TENDERNESS Respiratory/Chest: Present: Other (slight agonal breathing is noted, + basiliar wheezing noted, no tachypenia, no accessory muscle use noted) Cardiovascular: Present: Regular Rate and Rhythm, Normal S1, S2. No: Murmurs Abdomen: Present: Normal Bowel Sounds, Other (well nourished male, no focal tenderness, no hendrix's sign, no mcburney's point tenderness, no masses/rebound/ guarding/rigidity) Back: Present: Normal Inspection. No: CVA Tenderness, Midline Tenderness Upper Extremity: Present: Normal Inspection, Normal ROM, NORMAL PULSES, Neurovascularly Intact, Capillary Refill < 2s Lower Extremity: Present: Normal Inspection, NORMAL PULSES, Normal ROM, Neurovascularly Intact, Capillary Refill < 2 s, Other (no pitting edema noted b/ l, strength 5-/5 b/l, intact ROM) Neurological: Present: GCS=15, CN II-XII Intact, Other (slurr speech (likely due to intoxication); i do not smell etoh on the patient currently; follows command with ease, coopeartive) Skin: Present: Warm, Normal Color, Other (cap refill ~ 1 sec, no ulcerations, no petechiae, no rashes/lesions) Psychiatric: Present: Alert Medical Decision Making ED Course and Treatment: 05/31/17 14:50 Impression: AMS, sob i have consider all the differential diagnosis regarding pt's chief medical complaints/clinical findings, including but are not limited to: AMS, sob, ? intoxication A/P: AMS, sob - labs - iv - ct head - xray - supportive care - observe/reevaluation 05/31/17 16:10 pt is much more awake and NAD pt is responsive, and appropriate at times asking when he can be discharged and be released home after treatment, lung re-eval: NO wheezing/rales/rhonchi noted, no tachypenia, pt is not in any resp distress, no accessory muscle use noted vital signs WNL pt denied any distress/discomfort currently pt is made aware of his medical results pt is encouraged not to smoke pt is encouraged fluids pt will f/u as directed pt will be discharged home Re-evaluation Time: 16:08 Reassessment Condition: Improved - Lab Interpretations Lab Results: 05/31/17 14:25 05/31/17 14:25 Lab Results 05/31/17 15:12: Urine Opiates Screen Negative, Urine Methadone Screen Negative, Ur Barbiturates Screen Negative, Ur Phencyclidine Scrn Negative, Ur Amphetamines Screen Negative, U Benzodiazepines Scrn Negative, U Oth Cocaine Metabols Negative, U Cannabinoids Screen Negative 05/31/17 15:12: Urine Color Yellow, Urine Appearance Clear, Urine pH 6.0, Ur Specific Spearfish 1.015, Urine Protein Negative, Urine Glucose (UA) Negative, Urine Ketones Negative, Urine Blood Negative, Urine Nitrate Negative, Urine Bilirubin Negative, Urine Urobilinogen 0.2, Ur Leukocyte Esterase Negative 05/31/17 14:25: Alcohol, Quantitative < 10 05/31/17 14:25: Salicylates < 1 L, Acetaminophen < 10.0 L 05/31/17 14:25: Sodium 139, Potassium 4.2, Chloride 107, Carbon Dioxide 21, Anion Gap 15, BUN 11, Creatinine 0.7 L, Est GFR ( Amer) > 60, Est GFR ( Non-Af Amer) > 60, Random Glucose 96, Calcium 9.5, Total Bilirubin 0.4, AST 33, ALT 52, Alkaline Phosphatase 71, Lactate Dehydrogenase 470, Total Creatine Kinase 49, Troponin I < 0.01, NT-Pro-B Natriuret Pep 47.7, Total Protein 7.6, Albumin 4.4, Globulin 3.1, Albumin/Globulin Ratio 1.4 05/31/17 14:25: WBC 7.5, RBC 5.42, Hgb 15.2, Hct 44.5, MCV 82.1, MCH 28.0, MCHC 34.2, RDW 16.7 H, Plt Count 270, MPV 10.1, Gran % 46.4 L, Lymph % (Auto) 38.5 H , Rosebud % (Auto) 6.8 H, Eos % (Auto) 7.2 H, Baso % (Auto) 1.1, Gran # 3.48, Lymph # (Auto) 2.9, Rosebud # (Auto) 0.5, Eos # (Auto) 0.5, Baso # (Auto) 0.08 05/31/17 14:21: POC Glucose (mg/dL) 89 I have reviewed the lab results: Yes Interpretation: All labs normal - RAD Interpretation Narrative RAD Interpretations (Text): 05/31/17 15:57 Chest X-ray reviewed by radiologist, shows: No active pulmonary disease. PLEURA: No significant pleural effusion identified, no pneumothorax apparent. CARDIOVASCULAR: Normal. OSSEOUS STRUCTURES: No significant abnormalities. VISUALIZED UPPER ABDOMEN: Normal. OTHER FINDINGS: None. IMPRESSION: No active disease. 05/31/17 16:00 CT of head reviewed by radiologist, shows: HEMORRHAGE: No intracranial hemorrhage. BRAIN: No mass effect or edema. Severe chronic encephalomalacia is seen in both frontal lobes anteriorly. This pattern is unchanged. There are no acute findings VENTRICLES: Unremarkable. No hydrocephalus. CALVARIUM: Unremarkable. PARANASAL SINUSES: Unremarkable as visualized. No significant inflammatory changes. MASTOID AIR CELLS: Unremarkable as visualized. No inflammatory changes. OTHER FINDINGS: None. IMPRESSION: Severe chronic encephalomalacia is seen in both frontal lobes anteriorly. This pattern is unchanged. There are no acute findings Radiology Orders: 05/31/17 14:42 HEAD W/O CONTRAST [CT] Stat 05/31/17 14:43 CHEST PORTABLE [RAD] Stat Cook Chief: Radiologist - EKG Interpretation EKG Interpretation (Text): 05/31/17 14:55 NSR at 100 bpm, normal axis, no ectopy, low voltage inf leads, no st-t changes, NORMAL EKG otherwise; unchanged compare with old ekg 02/03 Interpreted by ED Physician: Yes Type: 12 lead EKG Comparison: Similar to previous EKG - Medication Orders Current Medication Orders: Discontinued Medications Albuterol/Ipratropium (Duoneb 3 Mg/0.5 Mg (3 Ml) Ud) 3 ml IH Q15M EVERARDO Stop: 05/31/17 15:16 Last Admin: 05/31/17 15:10 Dose: 3 ml Sodium Chloride (Sodium Chloride 0.9%) 500 mls @ 1,000 mls/hr IV .Q30M STA Stop: 05/31/17 15:11 Last Admin: 05/31/17 14:55 Dose: 1,000 mls/hr eMAR Start Stop Document 05/31/17 14:55 SRE (Rec: 05/31/17 14:56 SRE [id number]) Intravenous Solution Start Date 05/31/17 Start Time 14:56 End Date 05/31/17 End time 16:00 Total Infusion Time 64 Naloxone HCl (Narcan) 0.4 mg IVP STAT STA Stop: 05/31/17 14:45 Last Admin: 05/31/17 14:45 Dose: Disposition/Present on Arrival - Present on Arrival Any Indicators Present on Arrival: No History of DVT/PE: No History of Uncontrolled Diabetes: No Urinary Catheter: No History of Decub. Ulcer: No History Surgical Site Infection Following: None - Disposition Have Diagnosis and Disposition been Completed?: Yes Diagnosis: COPD exacerbation, Altered mental status, unspecified, Chronic pain Disposition: HOME/ ROUTINE Disposition Time: 16:05 Patient Plan: Discharge Patient Problems: Current Active Problems Problem Status Onset Altered mental status Acute COPD exacerbation Acute Chronic pain Acute Condition: STABLE Discharge Instructions (ExitCare): Chronic Obstructive Pulmonary Disease (COPD) , Including Emphysema, Chronic Pain (DC) Print Language: TURKISH Additional Instructions: Make sure to see your doctor in 1-2 days DRINK PLENTY OF FLUIDS STOP SMOKING take your medications as prescribed RETURN TO ED IF worse pain, cant breath, persistent vomiting, high fever >101- 102 for hours, altered behavior, slurr speech, facial changes, focal weakness ( arm/leg or both), unable to urinate, heavy/persistent bleeding, passing out, chest pain, or other medical emergencies Prescriptions: Albuterol HFA [Ventolin HFA 90 mcg/actuation (8 g)] 1 puff IH QID PRN #1 puff PRN Reason: Wheezing Referrals: [facility] [Outside] - [place] up with [place] [facility] [place] [facility] [place] - Follow up with primary Forms: [employer] ([place]uan)
[2017-05-31] MEDS: Albuterol-Ipratrop 3 mg / 0.5 (3 ml) UD IH SCH ×3 (14:50→15:10)
[2017-05-31 15:03] LABS: BASO # 0.08 K/mm3 (0.0-2.0); BASO % 1.1 % (0.0-3.0); EOS # 0.5 (0.0-0.7); EOS % 7.2 % (1.5-5.0); GRAN # 3.48 (1.4-6.5); GRAN % 46.4 % (50.0-68.0); HEMOGLOBIN 15.2 g/dL (14.0-18.0); LYMPH # 2.9 (1.2-3.4); LYMPH % 38.5 % (22.0-35.0); MEAN CELL VOLUME 82.1 fl (80.0-105.0); MEAN CORPUSCULAR HGB CONC 34.2 g/dl (31.0-37.0); MEAN PLATELET VOLUME 10.1 fl (7.0-11.0); MONO # 0.5 (0.1-0.6); MONO % 6.8 % (1.0-6.0); RBC 5.42 10^6/uL (3.5-6.1); RED CELL DISTRIBUTION WIDTH 16.7 % (11.5-14.5); WHITE BLOOD COUNT 7.5 10^3/ul (4.5-11.0)
[2017-05-31 15:10] LABS: ACETAMINOPHEN < 10.0 ug/ml (10.0-20.0); ALB/GLOB RATIO 1.4 (1.1-1.8); ALBUMIN 4.4 g/dL (3.0-4.8); ALT/SGPT 52 U/L (7-56); AST/SGOT 33 U/L (17-59); BLOOD UREA NITROGEN 11 mg/dL (7-21); CALCIUM 9.5 mg/dL (8.4-10.5); GFR AFRICAN-AMERICAN > 60; GFR NON-AFRICAN AMERICAN > 60; SALICYLATE < 1 mg/dL (2.0-20.0)
[2017-05-31 15:22] LABS: B-TYPE NATRIURETIC PEPTIDE 47.7 pg/mL (0-450); TROPONIN I < 0.01 ng/mL
[2017-05-31 15:24] LABS: URINE BILIRUBIN NEGATIVE (NEGATIVE); URINE BLOOD NEGATIVE (NEGATIVE); URINE GLUCOSE (UA) NEGATIVE (NEGATIVE); URINE LEUKOCYTE ESTERASE NEGATIVE Leu/uL (NEGATIVE); URINE PROTEIN NEGATIVE mg/dL (<30 mg/dL); URINE UROBILINOGEN 0.2 E.U./dL (<1 E.U./dL)
[2017-05-31 15:32] LABS: URINE APPEARANCE CLEAR (CLEAR); URINE COLOR YELLOW (YELLOW)
[2017-05-31 15:43] LABS: BARBITURATES, UR NEGATIVE (NEGATIVE); BENZODIAZEPINES, UR NEGATIVE (NEGATIVE); OPIATES, UR NEGATIVE (NEGATIVE); PHENCYCLIDINE, UR NEGATIVE (NEGATIVE)
--- NOTE | 2017-05-31 15:52 | RAD ---
HISTORY: sob COMPARISON: 02/04/2017 FINDINGS: LUNGS: No active pulmonary disease. PLEURA: No significant pleural effusion identified, no pneumothorax apparent. CARDIOVASCULAR: Normal. OSSEOUS STRUCTURES: No significant abnormalities. VISUALIZED UPPER ABDOMEN: Normal. OTHER FINDINGS: None. IMPRESSION: No active disease.
--- NOTE | 2017-05-31 15:55 | CT ---
PROCEDURE: CT HEAD WITHOUT CONTRAST. HISTORY: AMS; found wondering COMPARISON: None available. TECHNIQUE: Axial computed tomography images were obtained through the head/brain without intravenous contrast. Radiation dose: Total exam DLP = 1785 mGy-cm. This CT exam was performed using one or more of the following dose reduction techniques: Automated exposure control, adjustment of the mA and/or kV according to patient size, and/or use of iterative reconstruction technique. FINDINGS: HEMORRHAGE: No intracranial hemorrhage. BRAIN: No mass effect or edema. Severe chronic encephalomalacia is seen in both frontal lobes anteriorly. This pattern is unchanged. There are no acute findings VENTRICLES: Unremarkable. No hydrocephalus. CALVARIUM: Unremarkable. PARANASAL SINUSES: Unremarkable as visualized. No significant inflammatory changes. MASTOID AIR CELLS: Unremarkable as visualized. No inflammatory changes. OTHER FINDINGS: None. IMPRESSION: Severe chronic encephalomalacia is seen in both frontal lobes anteriorly. This pattern is unchanged. There are no acute findings
[2017-05-31 16:10] VITALS: BP 134/77; PULSE 99; RESP 17; TEMP 98; O2SAT 96
--- NOTE | 2017-06-01 09:38 | CARD ---
APPROVED REPORT EKG Measurement Heart [id number] 132P63 [id number] <Conclusion> Sinus tachycardia NSSTW changes Prolonged QTc No change
== END 2017-05-31 16:11 | disposition home or self-care (01) ==
LOC: ED 14:15
DX: J44.1 Chronic obstructive pulmonary disease with (acute) exacerbation (principal); G89.29 Other chronic pain; R41.82 Altered mental status, unspecified; E11.9 Type 2 diabetes mellitus without complications; F17.210 Nicotine dependence, cigarettes, uncomplicated
CPT/HCPCS: 70450; 71045; 80053; 81003; 82550; 82948; 83615; 83880; 84484; 85025; 93005; 96360; 99284; G0480; J2310; J7040

== ENCOUNTER 2017-07-11 14:39 | Emergency (ER) | payer MEDICARE ==
--- NOTE | 2017-07-11 14:55 | ED PDOC ---
Arrival/HPI - General Time Seen by Provider: 07/11/17 14:42 Historian: Patient, EMS - History of Present Illness Narrative History of Present Illness (Text): 07/11/17 14:46 57 y/o male, pmh including copd/pneumonia, AOx3, psychiatric history including drug abuse, nkda, c/o headache and nausea x 1 day. Pt with etoh on breath, admits drinking beer earlier during the day, found by the by stander which he was appear to be intoxicated on the street, frontal headache with nausea, no vomiting, no night sweat, no rash, no numbness or tingling, no palpitation, no change in vision, no chest pain or shortness of breath, no other medical or psychological complaints. Past Medical History - Provider Review Nursing Documentation Reviewed: Yes - Past History Past History: No Previous - Infectious Disease Hx of Infectious Diseases: None - Tetanus Immunization Tetanus Immunization: Unknown - Past Medical History Past Medical History: No Previous - Cardiac Hx Hypertension: No - Pulmonary Hx Respiratory Disorders: No Hx Tuberculosis: No - HEENT Hx HEENT Disorder: No - Renal Hx Renal Disorder: No - Endocrine/Metabolic Hx Endocrine Disorders: Yes Hx Diabetes Mellitus Type 2: Yes - Hematological/Oncological Hx Blood Disorders: No - Integumentary Hx Dermatological Disorder: No - Musculoskeletal/Rheumatological Hx Falls: Yes - Gastrointestinal Hx Gastrointestinal Disorders: No - Genitourinary/Gynecological Hx Sexually Transmitted Diseases: No - Psychiatric Hx Depression: No Hx Substance Use: No (denies) - Past Surgical History Past Surgical History: Unable to Obtain - Surgical History Hx Orthopedic Surgery: Yes (back surgery x2) - Anesthesia Hx Anesthesia: Yes Hx Anesthesia Reactions: No Hx Malignant Hyperthermia: No - Suicidal Assessment Feels Threatened In Home Enviroment: No Family/Social History - Physician Review Nursing Documentation Reviewed: Yes Family/Social History: Unknown Family HX Smoking Status: Heavy Smoker > 10 Cigarettes Daily Hx Alcohol Use: Yes (pt denies) Hx Substance Use: No (denies) Hx Substance Use Treatment: No Allergies/Home Meds Allergies/Adverse Reactions: Allergies No Known Allergies Allergy (Verified 07/11/17 15:26) Home Medications: Home Meds Medication Instructions Recorded Confirmed Unobtainable 07/11/17 07/11/17 Review of Systems - Review of Systems Constitutional: absent: Fatigue, Fevers Eyes: absent: Vision Changes Respiratory: absent: SOB, Cough Cardiovascular: absent: Chest Pain Gastrointestinal: Nausea. absent: Abdominal Pain, Diarrhea, Vomiting Musculoskeletal: absent: Arthralgias, Back Pain Skin: absent: Rash, Pruritis Neurological: Headache. absent: Dizziness Psychiatric: absent: Anxiety, Depression, Suicidal Ideation Physical Exam Vital Signs Temp Pulse Resp BP Pulse Ox 07/11/17 15:18 98.2 F 100 H 18 120/77 95 Pain Distress: Mild Mental Status: Positive for: Alert and Oriented X 3 - Systems Exam Head: Present: Atraumatic, Normocephalic. No: Tenderness, Contusion, Swelling, Ecchymosis, Abrasion, Laceration Pupils: Present: PERRL Extroacular Muscles: Present: EOMI Conjunctiva: Present: Normal Ears: Present: NORMAL TM, Normal Canal. No: Erythema Mouth: Present: Moist Mucous Membranes Pharnyx: Present: Normal. No: ERYTHEMA, EXUDATE, TONSILS ENLARGED Nose (External): Present: Atraumatic. No: Abrasion, Contusion, Laceration Nose (Internal): Present: Normal Inspection, No Active Bleeding. No: Rhinorrhea Neck: Present: Normal Range of Motion, Trachea Midline. No: Meningeal Signs, MIDLINE TENDERNESS, Paraspinal Tenderness, Lymphadenopathy Respiratory/Chest: Present: Clear to Auscultation, Good Air Exchange. No: Respiratory Distress, Accessory Muscle Use Cardiovascular: Present: Regular Rate and Rhythm, Normal S1, S2. No: Murmurs Abdomen: Present: Tenderness (mild epigastric tenderness). No: Distention, Peritoneal Signs, Rebound, Guarding Back: Present: Normal Inspection. No: CVA Tenderness, Midline Tenderness Upper Extremity: Present: Normal Inspection. No: Cyanosis, Edema Lower Extremity: Present: Normal Inspection. No: Edema Neurological: Present: GCS=15, CN II-XII Intact, Speech Normal, Motor Func Grossly Intact, Memory Normal Skin: Present: Warm, Dry, Normal Color. No: Rashes Psychiatric: Present: Alert, Oriented x 3, Normal Insight, Normal Concentration Medical Decision Making ED Course and Treatment: 07/11/17 14:57 -labs/ck level/lipase -CT head -IVF/pepcid/zofran/tylenol -Observe and reassess 07/11/17 16:38 -FS 116 -Chest xray no active disease -CT head show no acute findings -Lab is ordered but patient refused to wait for the blood and wants to go -Lipase is ordered but patient refused to wait for the blood and wants to leave -CK is ordered but refused to wait for the blood wants to leave -Pt. is walking with normal gait and posture, no focal neurological deficits, stated that he feels better already, clinically sober, wants to leave, doesn't wanna wait for the against medical advice paper, request to leave. Pt. will be placed as elopement. - RAD Interpretation Radiology Orders: 07/11/17 15:01 HEAD W/O CONTRAST [CT] Stat 07/11/17 15:02 CHEST PORTABLE [RAD] Stat Chest xray: HISTORY: medical clearance COMPARISON: 05/31/2017 FINDINGS: LUNGS: No active pulmonary disease. PLEURA: No significant pleural effusion identified, no pneumothorax apparent. CARDIOVASCULAR: Normal. OSSEOUS STRUCTURES: No significant abnormalities. VISUALIZED UPPER ABDOMEN: Normal. OTHER FINDINGS: None. IMPRESSION: No active disease. -------- CT Head: HISTORY: etoh, headahe, fall? COMPARISON: 05/31/2017 CT TECHNIQUE: Axial computed tomography images were obtained through the head/brain without intravenous contrast. Radiation dose: Total exam DLP = 902 mGy-cm. This CT exam was performed using one or more of the following dose reduction techniques: Automated exposure control, adjustment of the mA and/or kV according to patient size, and/or use of iterative reconstruction technique. FINDINGS: HEMORRHAGE: No intracranial hemorrhage. BRAIN: No mass effect or edema. Chronic encephalomalacia is seen in the anterior anterior frontal lobes bilaterally. There are no acute intracranial findings. VENTRICLES: Unremarkable. No hydrocephalus. CALVARIUM: Unremarkable. PARANASAL SINUSES: Unremarkable as visualized. No significant inflammatory changes. MASTOID AIR CELLS: Unremarkable as visualized. No inflammatory changes. OTHER FINDINGS: None. 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 - Medication Orders Current Medication Orders: Discontinued Medications Acetaminophen (Tylenol 325mg Tab) 325 mg PO STAT STA Stop: 07/11/17 15:02 Last Admin: 07/11/17 16:00 Dose: 325 mg Famotidine (Pepcid) 20 mg IVP STAT STA Stop: 07/11/17 15:02 Last Admin: 07/11/17 16:00 Dose: 20 mg IVP Administration Document 07/11/17 16:00 DOC (Rec: 07/11/17 16:31 DOC [email or web address]) Charges for Administration # of IVP Administrations 1 Multivitamins/Vitamin C 10 ml/Thiamine HCl 100 mg/ Folic Acid 1 mg/ Dextrose 1, 011.2 mls @ 1,000 mls/hr IV .Q1H1M ONE Stop: 07/11/17 16:01 Last Admin: 07/11/17 16:30 Dose: 1,000 mls/hr eMAR Start Stop Document 07/11/17 16:30 DOC (Rec: 07/11/17 16:30 DOC [email or web address]) Intravenous Solution Start Date 07/11/17 Start Time 16:30 End Date 07/11/17 End time 17:30 Total Infusion Time 60 Ondansetron HCl (Zofran Inj) 4 mg IVP STAT STA Stop: 07/11/17 15:02 Last Admin: 07/11/17 15:55 Dose: 4 mg IVP Administration Document 07/11/17 15:55 DOC (Rec: 07/11/17 16:39 DOC [email or web address]) Charges for Administration # of IVP Administrations 1 - PA / NUCLEAR MEDICAL TECHNOLOGIST / Resident Statement MD/DO has reviewed & agrees with the documentation as recorded. Disposition/Present on Arrival - Present on Arrival Any Indicators Present on Arrival: No History of DVT/PE: No History of Uncontrolled Diabetes: No Urinary Catheter: No History of Decub. Ulcer: No History Surgical Site Infection Following: None - Disposition Have Diagnosis and Disposition been Completed?: Yes Diagnosis: Headache, Nausea, Non compliance w medication regimen Disposition: ELOPEMENT - ER ONLY Disposition Time: 16:41 Patient Problems: Current Active Problems Problem Status Onset Headache Acute Nausea Acute Non compliance w medication regimen Acute Condition: GOOD Additional Instructions: You decided to leave the ER without continue of the medical care. You can return to the ER any time for continue the care. You need to see your own pmd within 2 days, stop smoking and stop drinking. Referrals: [facility], [Primary Care Provider] - Follow up with primary [facility] at [facility] [place] [Outside] - Follow up with primary Forms: WORK NOTE
[2017-07-11] MEDS ORDERED: Multivitamin (MVI) 10 ML, Thiamine 100 MG, Folic Acid 1 MG in Dextrose 5% In Water 1,00... IV ONE (15:01)
[2017-07-11 15:12] VITALS: BMI 25.8
[2017-07-11 15:19] VITALS: TEMP 98.2
--- NOTE | 2017-07-11 15:39 | RAD ---
HISTORY: medical clearance COMPARISON: 05/31/2017 FINDINGS: LUNGS: No active pulmonary disease. PLEURA: No significant pleural effusion identified, no pneumothorax apparent. CARDIOVASCULAR: Normal. OSSEOUS STRUCTURES: No significant abnormalities. VISUALIZED UPPER ABDOMEN: Normal. OTHER FINDINGS: None. IMPRESSION: No active disease.
--- NOTE | 2017-07-11 16:42 | CT ---
PROCEDURE: CT HEAD WITHOUT CONTRAST. HISTORY: etoh, headahe, fall? COMPARISON: 05/31/2017 CT TECHNIQUE: Axial computed tomography images were obtained through the head/brain without intravenous contrast. Radiation dose: Total exam DLP = 902 mGy-cm. This CT exam was performed using one or more of the following dose reduction techniques: Automated exposure control, adjustment of the mA and/or kV according to patient size, and/or use of iterative reconstruction technique. FINDINGS: HEMORRHAGE: No intracranial hemorrhage. BRAIN: No mass effect or edema. Chronic encephalomalacia is seen in the anterior anterior frontal lobes bilaterally. There are no acute intracranial findings. VENTRICLES: Unremarkable. No hydrocephalus. CALVARIUM: Unremarkable. PARANASAL SINUSES: Unremarkable as visualized. No significant inflammatory changes. MASTOID AIR CELLS: Unremarkable as visualized. No inflammatory changes. OTHER FINDINGS: None. IMPRESSION: No acute findings
[2017-07-11 16:56] LABS: BASO # 0.03 K/mm3 (0.0-2.0); BASO % 0.3 % (0.0-3.0); EOS # 0.1 (0.0-0.7); EOS % 1.1 % (1.5-5.0); GRAN # 6.52 (1.4-6.5); GRAN % 65.4 % (50.0-68.0); HEMOGLOBIN 16.8 g/dL (14.0-18.0); LYMPH # 2.6 (1.2-3.4); LYMPH % 26.3 % (22.0-35.0); MEAN CELL VOLUME 80.6 fl (80.0-105.0); MEAN CORPUSCULAR HEMOGLOBIN 28.1 pg (25.0-35.0); MEAN CORPUSCULAR HGB CONC 34.9 g/dl (31.0-37.0); MEAN PLATELET VOLUME 10.3 fl (7.0-11.0); MONO # 0.7 (0.1-0.6); MONO % 6.9 % (1.0-6.0); RBC 5.97 10^6/uL (3.5-6.1); RED CELL DISTRIBUTION WIDTH 15.7 % (11.5-14.5)
[2017-07-11 17:01] LABS: ALB/GLOB RATIO 1.3 (1.1-1.8); ALBUMIN 4.3 g/dL (3.0-4.8); ALT/SGPT 27 U/L (7-56); AST/SGOT 16 U/L (17-59); BLOOD UREA NITROGEN 27 mg/dL (7-21); CALCIUM 8.5 mg/dL (8.4-10.5); GFR AFRICAN-AMERICAN > 60; GFR NON-AFRICAN AMERICAN > 60; LIPASE 75 U/L (23-300)
[2017-07-11 19:44] VITALS: BP 119/77; PULSE 92; RESP 20; O2SAT 99
== END 2017-07-11 17:20 | disposition left against medical advice (07) ==
LOC: ED 14:39
DX: R11.0 Nausea (principal); R51 Headache; Z91.14 Patient's other noncompliance with medication regimen; E11.9 Type 2 diabetes mellitus without complications; F17.210 Nicotine dependence, cigarettes, uncomplicated
CPT/HCPCS: 70450; 71045; 80053; 82550; 82948; 83690; 83735; 85025; 96365; 96375; 99284; J2405; J3411; J7070

== ENCOUNTER 2017-07-21 17:03 | Emergency (ER) | payer MEDICARE ==
--- NOTE | 2017-07-21 17:23 | ED PDOC ---
"Arrival/HPI - General Time Seen by Provider: 07/21/17 17:10 Historian: Patient, EMS, Police EM Caveat: Altered Mental Status, Intoxicated, Uncooperative - History of Present Illness Narrative History of Present Illness (Text): 07/21/17 17:22 57 year old male, limited HPI due to uncooperative/intoxication/drowsiness, PCP Dr. John Paul Bennett (as per patient), whose PMH includes COPD, Psychiatric history including ETOH abuse and drug abuse, who present via EMS, s/p being found on the street by police in a gas station after he fall on the rt. elbow. Pt. stated that he admits drinking and taking 5 tablets of Tramadol and 3 tablets of Ambien with unknown dosage, prior to the fall. Patient reports after taking the tablets at home (which I am unable to get in touch with the family), he went outside, walk to gas station, fell to the right elbow, and was found by [employer] police officer who called EMS for assistance. Patient is here in Emergency department and denies any complaints and just wants to sleep. Denies SI, HI, headache, auditory or visual hallucinations. Time/Duration: Prior to Arrival Symptom Onset: Sudden Symptom Course: Unchanged Context: Street Past Medical History - Provider Review Nursing Documentation Reviewed: Yes - Past History Past History: No Previous - Infectious Disease Hx of Infectious Diseases: None - Tetanus Immunization Tetanus Immunization: Unknown - Past Medical History Past Medical History: No Previous - Cardiac Hx Hypertension: No - Pulmonary Hx Respiratory Disorders: No Hx Tuberculosis: No - HEENT Hx HEENT Disorder: No - Renal Hx Renal Disorder: No - Endocrine/Metabolic Hx Endocrine Disorders: Yes Hx Diabetes Mellitus Type 2: Yes - Hematological/Oncological Hx Blood Disorders: No - Integumentary Hx Dermatological Disorder: No - Musculoskeletal/Rheumatological Hx Falls: Yes - Gastrointestinal Hx Gastrointestinal Disorders: No - Genitourinary/Gynecological Hx Sexually Transmitted Diseases: No - Psychiatric Hx Depression: No Hx Substance Use: No (denies) - Past Surgical History Past Surgical History: Unable to Obtain - Surgical History Hx Orthopedic Surgery: Yes (back surgery x2) - Anesthesia Hx Anesthesia: Yes Hx Anesthesia Reactions: No Hx Malignant Hyperthermia: No - Suicidal Assessment Feels Threatened In Home Enviroment: No Family/Social History - Physician Review Nursing Documentation Reviewed: Yes Family/Social History: Unknown Family HX Smoking Status: Heavy Smoker > 10 Cigarettes Daily Hx Alcohol Use: Yes (pt denies) Hx Substance Use: No (denies) Hx Substance Use Treatment: No Allergies/Home Meds Allergies/Adverse Reactions: Allergies No Known Allergies Allergy (Verified 07/11/17 15:26) Home Medications: Home Meds Medication Instructions Recorded Confirmed Unobtainable 07/11/17 07/21/17 Review of Systems - Review of Systems Systems not reviewed;Unavailable: Other (intoxication/uncooperative/drowsiness) Respiratory: absent: SOB, Cough Cardiovascular: absent: Chest Pain Gastrointestinal: absent: Abdominal Pain, Nausea Genitourinary Male: absent: Dysuria Musculoskeletal: absent: Back Pain Skin: absent: Rash Neurological: absent: Headache, Dizziness, Focal Weakness Psychiatric: absent: Anxiety, Depression, Suicidal Ideation Physical Exam Vital Signs Reviewed: Yes Vital Signs Temp Pulse Resp BP Pulse Ox 07/21/17 19:44 86 15 153/82 H 95 07/21/17 17:26 98.0 F 102 H 19 138/92 H 96 Temperature: Afebrile Blood Pressure: Hypertensive Pulse: Tachycardic Respiratory Rate: Normal Appearance: Positive for: Well-Appearing, Non-Toxic, Comfortable Pain Distress: None Mental Status: Positive for: other (intoxicated) - Systems Exam Head: Present: Atraumatic, Normocephalic, Other (no facial tenderness or swelling/deformity). No: Tenderness, Contusion, Swelling, Ecchymosis, Abrasion , Laceration Pupils: Present: Pinpoint, Other (no hyphema or subconjunctival hemorrage) Extroacular Muscles: Present: EOMI Conjunctiva: Present: Normal Ears: Present: NORMAL TM, Normal Canal. No: Erythema Mouth: Present: Moist Mucous Membranes Pharnyx: No: ERYTHEMA, EXUDATE, TONSILS ENLARGED Nose (External): Present: Atraumatic. No: Abrasion, Contusion, Laceration Nose (Internal): Present: Normal Inspection, No Active Bleeding. No: Rhinorrhea , Septal Deviation, Septal Hematoma, Epistaxis Neck: Present: Normal Range of Motion, Trachea Midline. No: MIDLINE TENDERNESS , Paraspinal Tenderness Respiratory/Chest: Present: Clear to Auscultation, Good Air Exchange. No: Respiratory Distress, Accessory Muscle Use Cardiovascular: Present: Regular Rate and Rhythm, Normal S1, S2. No: Murmurs Abdomen: No: Tenderness, Distention, Peritoneal Signs, Rebound, Guarding Back: Present: Normal Inspection. No: CVA Tenderness, Midline Tenderness, Paraspinal Tenderness, Decubitus Ulcer Upper Extremity: Present: Normal Inspection, Normal ROM, NORMAL PULSES, Neurovascularly Intact, Capillary Refill < 2s, Norm 2-Pt Discrimination, Other ( Rt. elbow: visible abrasion approx. 3cm diameter laterally with no deformity but mild +ttp with no swelling, FROM without limitation, sensation intact, motor 5/5, +radial pulse, capillary refill< 2 seconds, neurovascular intact. ). No: Cyanosis, Edema, Swelling, Erythema, Temperature Abnormalties, Deformity Lower Extremity: Present: Normal Inspection, Normal ROM, Neurovascularly Intact , Capillary Refill < 2 s. No: Edema, CALF TENDERNESS, Balaji's Sign, Tenderness , Swelling, Deformity Neurological: Present: CN II-XII Intact, Motor Func Grossly Intact, Memory Normal, Other (limited neurological examination due to the mental status and cooperative with intoxication) Skin: Present: Warm, Dry, Normal Color. No: Rashes Psychiatric: Present: Alert, Intoxicated Medical Decision Making ED Course and Treatment: 07/21/17 Differential: ICH vs. fracture vs. dehydration vs. rhabdomylosis vs. Overdose -Labs/ua/uds/acetaminophen/salicyclate acid/alcohol lvel -EKG -CT head -Chest xray and rt. elbow xray -IVF/tdap -Aspiration and fall precaution -teletypesetter monitor -Poison control notify -Observe and reassess 07/21/17 17:45 -Attempted to call the family with number that is on file, however the number is a non-working phone. -Contacted poison control who agree on above labs/medical plan and to continue observation for respiratory/neurological status on the patient patient. 07/21/17 19:40 -EKG: Sinus tachycardia @ 101 BPM, no ST elevation or depression, no T wave inversion -CT head No acute findings. -Chest xray show no active disease -Rt. elbow xray show no active disease -Labs show no acute findings -CK within normal limit. -UA show no UTI -UDS show no acute findings. -Alcohol level within normal limit -Acetaminophen/salicylate level within normal limit -Pt. is resting well, arousable, offers no medical or psychological complaints. -Pt. will need admission to the ICU for close monitoring for over dosing with level of the mental status, concerning for future airway compromise and worsening of the mental status. -I spoke to Dr. Ramon about this case which he is covering for Dr. Bennett this evening to see whether Dr. Bennett would like to admit this patient. Dr. Ramon agreed to admit the case but admit it under Dr. Bennett with ICU evaluation. -ICU attending Dr. Sharon Betancur, finance and administration manager, discussed about the case/labs/radiology results, will come to evaluate the patient now. I spoke to the biomedical manager already about this case/labs/radiology result and will come to evaluate the patient. -Case discussed with DR. Stokes about this case and he will place in the admission. 07/21/17 19:43 -Recycling Sorter, DR. Herrera, came to evaluated the patient, stated that this patient doesn't need ICU admission, tele is sufficient for him with aggresive IV hydration another 1000cc bolus ordered. -I discussed the case/labs/radiology results/ICU consult with Dr. Omer Stokes, he agreed to admit the patient to telemetry. He will put in the admission order. -Pt. is maintaining his airway at this time. - Critical Care Critical Care Minutes: 45 minutes Critical Care Time: Unstable Narrative Critical Care (Text): 07/21/17 18:03 Altered mental status with alcohol intoxication with opiod and ambien over dose , ICU and poison control consult which will need admission, close cardiac and neurological monitoring. - Lab Interpretations Lab Results: 07/21/17 18:00 07/21/17 18:00 Lab Results 07/21/17 18:39: Urine Opiates Screen Negative, Urine Methadone Screen Negative, Ur Barbiturates Screen Negative, Ur Phencyclidine Scrn Negative, Ur Amphetamines Screen Negative, U Benzodiazepines Scrn Negative, U Oth Cocaine Metabols Negative, U Cannabinoids Screen Negative 07/21/17 18:39: Urine Color Light yellow, Urine Appearance Clear, Urine pH 6.0, Ur Specific [place] 1.010, Urine Protein Negative, Urine Glucose (UA) Negative, Urine Ketones Negative, Urine Blood Negative, Urine Nitrate Negative, Urine Bilirubin Negative, Urine Urobilinogen 0.2, Ur Leukocyte Esterase Negative 07/21/17 18:00: Acetaminophen < 10.0 L 07/21/17 18:00: WBC 9.9, RBC 5.62, Hgb 16.0, Hct 47.0, MCV 83.6 D, MCH 28.5, MCHC 34.0, RDW 16.2 H, Plt Count 293, MPV 9.9, Gran % 58.0, Lymph % (Auto) 28.5 , Piatt % (Auto) 5.6, Eos % (Auto) 7.3 H, Baso % (Auto) 0.6, Gran # 5.75, Lymph # (Auto) 2.8, Piatt # (Auto) 0.6, Eos # (Auto) 0.7, Baso # (Auto) 0.06 07/21/17 18:00: Alcohol, Quantitative < 10 07/21/17 18:00: Salicylates < 1 L 07/21/17 18:00: Sodium 144, Potassium 4.5, Chloride 105, Carbon Dioxide 27, Anion Gap 16, BUN 12, Creatinine 0.9, Est GFR ( Amer) > 60, Est GFR (Non- Af Amer) > 60, Random Glucose 129 H, Calcium 9.8, Magnesium 2.0, Total Bilirubin 0.5, AST 27, ALT 38, Alkaline Phosphatase 62, Total Creatine Kinase 50 , Total Protein 7.7, Albumin 4.3, Globulin 3.4, Albumin/Globulin Ratio 1.2 I have reviewed the lab results: Yes - RAD Interpretation Radiology Orders: 07/21/17 17:30 HEAD W/O CONTRAST [CT] Stat ELBOW RIGHT 3 VIEWS ROUTINE [RAD] Stat 07/21/17 17:40 CHEST PORTABLE [RAD] Stat CT head: Brain: 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 Basal ganglia calcification. No hemorrhage. Ventricles: Unremarkable. No ventriculomegaly. Bones/joints: Unremarkable. No acute fracture. Soft tissues: Unremarkable. Sinuses: Unremarkable as visualized. No acute sinusitis. Mastoid air cells: Unremarkable as visualized. No mastoid effusion. IMPRESSION: No acute findings. Thank you for allowing us to participate in the care of your patient. Dictated and Authenticated by: Reny Goodman MD FAKIH, HUSSEIN | Preliminary Radiology Report 07/21/2017 7:32 PM Eastern Time ([place] & [place]) Rt. elbow xray: Chest xray: Corporate Coordinator: Radiologist - EKG Interpretation Interpreted by ED Physician: Yes Type: 12 lead EKG - Medication Orders Current Medication Orders: Sodium Chloride (Sodium Chloride 0.9%) 1,000 mls @ 999 mls/hr IV .Q1H1M STA Stop: 07/21/17 20:46 Sodium Chloride (Sodium Chloride 0.9%) 1,000 mls @ 100 mls/hr IV .Q10H EVERARDO Discontinued Medications Sodium Chloride (Sodium Chloride 0.9%) 1,000 mls @ 999 mls/hr IV .Q1H1M STA Stop: 07/21/17 18:30 Last Admin: 07/21/17 18:06 Dose: 999 mls/hr eMAR Start Stop Document 07/21/17 18:06 OCS (Rec: 07/21/17 18:06 OCS [id number]) Intravenous Solution Start Date 07/21/17 Start Time 18:06 End Date 07/21/17 End time 19:07 Total Infusion Time 61 Tetanus/Reduced Diphtheria/Acell Pertussis (Boostrix Vaccine Inj) 0.5 ml IM .ONCE ONE Stop: 07/21/17 17:44 Last Admin: 07/21/17 18:07 Dose: 0.5 ml Immunization Registry Document 07/21/17 18:07 OCS (Rec: 07/21/17 18:07 OCS [id number]) Immunization Registry Consent Date 07/11/17 - PA / PROTECTION MGR / Resident Statement / has reviewed & agrees with the documentation as recorded. - Scribe Statement The provider has reviewed the documentation as recorded by the Sneha Doyle Provider Scribe Attestation: All medical record entries made by the Shyame were at my direction and personally dictated by me. I have reviewed the chart and agree that the record accurately reflects my personal performance of the history, physical exam, medical decision making, and the department course for this patient. I have also personally directed, reviewed, and agree with the discharge instructions and disposition. Disposition/Present on Arrival - Present on Arrival Any Indicators Present on Arrival: No History of DVT/PE: No History of Uncontrolled Diabetes: No Urinary Catheter: No History of Decub. Ulcer: No History Surgical Site Infection Following: None - Disposition Have Diagnosis and Disposition been Completed?: Yes Diagnosis: Abrasion, Fall, Overdose, Altered mental status, unspecified Disposition: HOSPITALIZED Disposition Time: 18:03 Patient Plan: Admission, Telemetry Patient Problems: Current Active Problems Problem Status Onset Abrasion Acute Fall Acute Overdose Acute Altered mental status, unspecified Acute Condition: STABLE Referrals: PCP,NO [Primary Care Provider] - Follow up with primary"
[2017-07-21 17:26] VITALS: BMI 25.7
[2017-07-21 17:27] VITALS: TEMP 98
[2017-07-21] MEDS ORDERED: Sodium Chloride 0.9% 1,000 ML IV STA ×2 (17:30→19:46)
[2017-07-21] MEDS ORDERED: TDAP Vaccine 0.5 mL Syr IM ONE (17:43)
[2017-07-21 18:09] LABS: BASO # 0.06 K/mm3 (0.0-2.0); BASO % 0.6 % (0.0-3.0); EOS # 0.7 (0.0-0.7); EOS % 7.3 % (1.5-5.0); GRAN # 5.75 (1.4-6.5); LYMPH # 2.8 (1.2-3.4); LYMPH % 28.5 % (22.0-35.0); MEAN CELL VOLUME 83.6 fl (80.0-105.0); MEAN CORPUSCULAR HEMOGLOBIN 28.5 pg (25.0-35.0); MEAN PLATELET VOLUME 9.9 fl (7.0-11.0); MONO # 0.6 (0.1-0.6); MONO % 5.6 % (1.0-6.0); RBC 5.62 10^6/uL (3.5-6.1); RED CELL DISTRIBUTION WIDTH 16.2 % (11.5-14.5); WHITE BLOOD COUNT 9.9 10^3/ul (4.5-11.0)
[2017-07-21 18:48] LABS: ALB/GLOB RATIO 1.2 (1.1-1.8); ALBUMIN 4.3 g/dL (3.0-4.8); ALT/SGPT 38 U/L (7-56); AST/SGOT 27 U/L (17-59); BLOOD UREA NITROGEN 12 mg/dL (7-21); CALCIUM 9.8 mg/dL (8.4-10.5); GFR AFRICAN-AMERICAN > 60; GFR NON-AFRICAN AMERICAN > 60
[2017-07-21 19:18] LABS: BARBITURATES, UR NEGATIVE (NEGATIVE); BENZODIAZEPINES, UR NEGATIVE (NEGATIVE); OPIATES, UR NEGATIVE (NEGATIVE); PHENCYCLIDINE, UR NEGATIVE (NEGATIVE)
[2017-07-21 19:20] LABS: URINE BILIRUBIN NEGATIVE (NEGATIVE); URINE BLOOD NEGATIVE (NEGATIVE); URINE GLUCOSE (UA) NEGATIVE (NEGATIVE); URINE LEUKOCYTE ESTERASE NEGATIVE Leu/uL (NEGATIVE); URINE PROTEIN NEGATIVE mg/dL (<30 mg/dL); URINE UROBILINOGEN 0.2 E.U./dL (<1 E.U./dL)
[2017-07-21 19:21] LABS: URINE APPEARANCE CLEAR (CLEAR); URINE COLOR LIGHT YELLOW (YELLOW)
[2017-07-21] MEDS ORDERED: Sodium Chloride 0.9% 1,000 ML IV SCH (20:00)
--- NOTE | 2017-07-21 20:41 | CP.PCM.CON ---
<Gerer Randhawa - Last Filed: 07/22/17 02:57> History of Present Illness - History of Present Illness History of Present Illness: PGY-2 ICU consult note 57 yo male with PMH of diabetes, depression, HTN, CKD, alcohol abuse and drug abuse presents with AMS. HPI is limited due to patient's uncooperative and AMS. Patient was brought in by via EMS after being found on the street by police in a gas station after he falling on his right elbow. Per ED note patient admits drinking and taking 5 tablets of Tramadol and 3 tablets of Ambien with unknown dosage, prior to the fall. Patient reports after taking the tablets at home he went outside, walk to gas station, fell to the right elbow, and was found by [employer] police coxswain who called EMS for assistance. Patient is sleepy but arousable, he is alert and orient to person and time. He denies any complaints and just wants to sleep. PMH: diabetes, depression, HTN, CKD, alcohol abuse and drug abuse PSH: Back surgery, spinal canal rods social history: alcohol use, denies illicit substance use, light smoker allergy: NKDA Review of Systems - Review of Systems Systems not reviewed;Unavailable: Altered Mental Status, Uncooperative Past Patient History - Infectious Disease Hx of Infectious Diseases: None - Tetanus Immunizations Tetanus Immunization: Unknown - Past Medical History & Family History Past Medical History?: Yes - Past Social History Smoking Status: Heavy Smoker > 10 Cigarettes Daily - CARDIAC Hx Hypertension: No - PULMONARY Hx Respiratory Disorders: No Hx Tuberculosis: No - HEENT Hx HEENT Problems: No - RENAL Hx Chronic Kidney Disease: No - ENDOCRINE/METABOLIC Hx Endocrine Disorders: Yes Hx Diabetes Mellitus Type 2: Yes - HEMATOLOGICAL/ONCOLOGICAL Hx Blood Disorders: No - INTEGUMENTARY Hx Dermatological Problems: No - MUSCULOSKELETAL/RHEUMATOLOGICAL Hx Falls: Yes - GASTROINTESTINAL Hx Gastrointestinal Disorders: No - GENITOURINARY/GYNECOLOGICAL Hx Sexually Transmitted Disorders: No - PSYCHIATRIC Hx Depression: No Hx Substance Use: No (denies) - SURGICAL HISTORY Hx Orthopedic Surgery: Yes (back surgery x2) - ANESTHESIA Hx Anesthesia: Yes Hx Anesthesia Reactions: No Hx Malignant Hyperthermia: No Meds Allergies/Adverse Reactions: Allergies Allergy/AdvReac Type Severity Reaction Status Date / Time No Known Allergies Allergy Verified 07/11/17 15:26 - Medications Medications: Current Medications Sodium Chloride (Sodium Chloride 0.9%) 1,000 mls @ 999 mls/hr IV .Q1H1M STA Stop: 07/21/17 20:46 Sodium Chloride (Sodium Chloride 0.9%) 1,000 mls @ 100 mls/hr IV .Q10H [facility]ARDO Physical Exam - Head Exam Head Exam: ATRAUMATIC, NORMOCEPHALIC - Eye Exam Eye Exam: Normal appearance - ENT Exam ENT Exam: Mucous Membranes Dry - Respiratory Exam Respiratory Exam: Clear to Auscultation Bilateral, NORMAL BREATHING PATTERN. absent: Decreased Breath Sounds, Rales, Rhonchi, Wheezes, Respiratory Distress, Stridor - Cardiovascular Exam Cardiovascular Exam: REGULAR RHYTHM, +S1, +S2. absent: Bradycardia, Tachycardia , Diastolic murmur, Systolic Murmur - GI/Abdominal Exam GI & Abdominal Exam: Normal Bowel Sounds, Soft. absent: Distended, Firm, Guarding, Hernia, Mass, Tenderness - Extremities Exam Extremities exam: Positive for: normal inspection. Negative for: pedal edema, tenderness - Neurological Exam Neurological exam: Alert Additional comments: oriented to person, time - Skin Skin Exam: Dry, Intact, Normal Color, Warm Results - Vital Signs Recent Vital Signs: Last Vital Signs Temp 98.0 F 07/21/17 17:26 Pulse 86 07/21/17 19:44 Resp 15 07/21/17 19:44 BP 153/82 H 07/21/17 19:44 Pulse Ox 95 07/21/17 19:44 - Labs Result Diagrams: 07/21/17 18:00 07/21/17 18:00 Labs: Laboratory Results - last 24 hr 07/21/17 07/21/17 07/21/17 18:00 18:00 18:00 WBC RBC Hgb Hct MCV MCH MCHC RDW Plt Count MPV Gran % Lymph % (Auto) [place] % (Auto) Eos % (Auto) Baso % (Auto) Gran # Lymph # (Auto) [place] # (Auto) Eos # (Auto) Baso # (Auto) Sodium 144 Potassium 4.5 Chloride 105 Carbon Dioxide 27 Anion Gap 16 BUN 12 Creatinine 0.9 Est GFR ( Amer) > 60 Est GFR (Non-Af Amer) > 60 Random Glucose 129 H Calcium 9.8 Magnesium 2.0 Total Bilirubin 0.5 AST 27 ALT 38 Alkaline Phosphatase 62 Total Creatine Kinase 50 Total Protein 7.7 Albumin 4.3 Globulin 3.4 Albumin/Globulin Ratio 1.2 Urine Color Urine Appearance Urine pH Ur Specific [place] Urine Protein Urine Glucose (UA) Urine Ketones Urine Blood Urine Nitrate Urine Bilirubin Urine Urobilinogen Ur Leukocyte Esterase Salicylates < 1 L Urine Opiates Screen Urine Methadone Screen Acetaminophen Ur Barbiturates Screen Ur Phencyclidine Scrn Ur Amphetamines Screen U Benzodiazepines Scrn U Oth Cocaine Metabols U Cannabinoids Screen Alcohol, Quantitative < 10 07/21/17 07/21/17 07/21/17 18:00 18:00 18:39 WBC 9.9 RBC 5.62 Hgb 16.0 Hct 47.0 MCV 83.6 D MCH 28.5 MCHC 34.0 RDW 16.2 H Plt Count 293 MPV 9.9 Gran % 58.0 Lymph % (Auto) 28.5 [place] % (Auto) 5.6 Eos % (Auto) 7.3 H Baso % (Auto) 0.6 Gran # 5.75 Lymph # (Auto) 2.8 [place] # (Auto) 0.6 Eos # (Auto) 0.7 Baso # (Auto) 0.06 Sodium Potassium Chloride Carbon Dioxide Anion Gap BUN Creatinine Est GFR ( Amer) Est GFR (Non-Af Amer) Random Glucose Calcium Magnesium Total Bilirubin AST ALT Alkaline Phosphatase Total Creatine Kinase Total Protein Albumin Globulin Albumin/Globulin Ratio Urine Color Light yellow Urine Appearance Clear Urine pH 6.0 Ur Specific [place] 1.010 Urine Protein Negative Urine Glucose (UA) Negative Urine Ketones Negative Urine Blood Negative Urine Nitrate Negative Urine Bilirubin Negative Urine Urobilinogen 0.2 Ur Leukocyte Esterase Negative Salicylates Urine Opiates Screen Urine Methadone Screen Acetaminophen < 10.0 L Ur Barbiturates Screen Ur Phencyclidine Scrn Ur Amphetamines Screen U Benzodiazepines Scrn U Oth Cocaine Metabols U Cannabinoids Screen Alcohol, Quantitative 07/21/17 18:39 WBC RBC Hgb Hct MCV MCH MCHC RDW Plt Count MPV Gran % Lymph % (Auto) [place] % (Auto) Eos % (Auto) Baso % (Auto) Gran # Lymph # (Auto) [place] # (Auto) Eos # (Auto) Baso # (Auto) Sodium Potassium Chloride Carbon Dioxide Anion Gap BUN Creatinine Est GFR ( Amer) Est GFR (Non-Af Amer) Random Glucose Calcium Magnesium Total Bilirubin AST ALT Alkaline Phosphatase Total Creatine Kinase Total Protein Albumin Globulin Albumin/Globulin Ratio Urine Color Urine Appearance Urine pH Ur Specific [place] Urine Protein Urine Glucose (UA) Urine Ketones Urine Blood Urine Nitrate Urine Bilirubin Urine Urobilinogen Ur Leukocyte Esterase Salicylates Urine Opiates Screen Negative Urine Methadone Screen Negative Acetaminophen Ur Barbiturates Screen Negative Ur Phencyclidine Scrn Negative Ur Amphetamines Screen Negative U Benzodiazepines Scrn Negative U Oth Cocaine Metabols Negative U Cannabinoids Screen Negative Alcohol, Quantitative Assessment & Plan - Assessment and Plan (Free Text) Assessment: 57 yo male with PMH of diabetes, depression, HTN, CKD, alcohol abuse and drug abuse presents with AMS, CT head was negative, labs reviewed. Patient is resting comfortably. Currently patient does not require ICU, he is hemodynamically stable and protection his airway <Scott Herrera MD - Last Filed: 07/22/17 10:10> Results - Vital Signs Recent Vital Signs: Last Vital Signs Temp 98.0 F 07/21/17 17:26 Pulse 83 07/21/17 23:37 Resp 17 07/21/17 23:37 BP 143/83 07/21/17 23:37 Pulse Ox 97 07/21/17 23:37 - Labs Result Diagrams: 07/21/17 18:00 07/21/17 18:00 Labs: Laboratory Results - last 24 hr 07/21/17 07/21/17 07/21/17 18:00 18:00 18:00 WBC RBC Hgb Hct MCV MCH MCHC RDW Plt Count MPV Gran % Lymph % (Auto) [place] % (Auto) Eos % (Auto) Baso % (Auto) Gran # Lymph # (Auto) [place] # (Auto) Eos # (Auto) Baso # (Auto) Sodium 144 Potassium 4.5 Chloride 105 Carbon Dioxide 27 Anion Gap 16 BUN 12 Creatinine 0.9 Est GFR ( Amer) > 60 Est GFR (Non-Af Amer) > 60 POC Glucose (mg/dL) Random Glucose 129 H Calcium 9.8 Magnesium 2.0 Total Bilirubin 0.5 AST 27 ALT 38 Alkaline Phosphatase 62 Total Creatine Kinase 50 Total Protein 7.7 Albumin 4.3 Globulin 3.4 Albumin/Globulin Ratio 1.2 Urine Color Urine Appearance Urine pH Ur Specific [place] Urine Protein Urine Glucose (UA) Urine Ketones Urine Blood Urine Nitrate Urine Bilirubin Urine Urobilinogen Ur Leukocyte Esterase Salicylates < 1 L Urine Opiates Screen Urine Methadone Screen Acetaminophen Ur Barbiturates Screen Ur Phencyclidine Scrn Ur Amphetamines Screen U Benzodiazepines Scrn U Oth Cocaine Metabols U Cannabinoids Screen Alcohol, Quantitative < 10 07/21/17 07/21/17 07/21/17 18:00 18:00 18:39 WBC 9.9 RBC 5.62 Hgb 16.0 Hct 47.0 MCV 83.6 D MCH 28.5 MCHC 34.0 RDW 16.2 H Plt Count 293 MPV 9.9 Gran % 58.0 Lymph % (Auto) 28.5 [place] % (Auto) 5.6 Eos % (Auto) 7.3 H Baso % (Auto) 0.6 Gran # 5.75 Lymph # (Auto) 2.8 [place] # (Auto) 0.6 Eos # (Auto) 0.7 Baso # (Auto) 0.06 Sodium Potassium Chloride Carbon Dioxide Anion Gap BUN Creatinine Est GFR ( Amer) Est GFR (Non-Af Amer) POC Glucose (mg/dL) Random Glucose Calcium Magnesium Total Bilirubin AST ALT Alkaline Phosphatase Total Creatine Kinase Total Protein Albumin Globulin Albumin/Globulin Ratio Urine Color Light yellow Urine Appearance Clear Urine pH 6.0 Ur Specific [place] 1.010 Urine Protein Negative Urine Glucose (UA) Negative Urine Ketones Negative Urine Blood Negative Urine Nitrate Negative Urine Bilirubin Negative Urine Urobilinogen 0.2 Ur Leukocyte Esterase Negative Salicylates Urine Opiates Screen Urine Methadone Screen Acetaminophen < 10.0 L Ur Barbiturates Screen Ur Phencyclidine Scrn Ur Amphetamines Screen U Benzodiazepines Scrn U Oth Cocaine Metabols U Cannabinoids Screen Alcohol, Quantitative 07/21/17 07/21/17 18:39 23:13 WBC RBC Hgb Hct MCV MCH MCHC RDW Plt Count MPV Gran % Lymph % (Auto) [place] % (Auto) Eos % (Auto) Baso % (Auto) Gran # Lymph # (Auto) [place] # (Auto) Eos # (Auto) Baso # (Auto) Sodium Potassium Chloride Carbon Dioxide Anion Gap BUN Creatinine Est GFR ( Amer) Est GFR (Non-Af Amer) POC Glucose (mg/dL) 87 Random Glucose Calcium Magnesium Total Bilirubin AST ALT Alkaline Phosphatase Total Creatine Kinase Total Protein Albumin Globulin Albumin/Globulin Ratio Urine Color Urine Appearance Urine pH Ur Specific [place] Urine Protein Urine Glucose (UA) Urine Ketones Urine Blood Urine Nitrate Urine Bilirubin Urine Urobilinogen Ur Leukocyte Esterase Salicylates Urine Opiates Screen Negative Urine Methadone Screen Negative Acetaminophen Ur Barbiturates Screen Negative Ur Phencyclidine Scrn Negative Ur Amphetamines Screen Negative U Benzodiazepines Scrn Negative U Oth Cocaine Metabols Negative U Cannabinoids Screen Negative Alcohol, Quantitative Attending/Attestation - Attestation I have personally seen and examined this patient.: Yes I have fully participated in the care of the patient.: Yes I have reviewed all pertinent clinical information: Yes Notes (Text): -I agree with the above ICU consult note completed by the resident physician.
[2017-07-21 23:38] VITALS: BP 143/83; PULSE 83; RESP 17; O2SAT 97
--- NOTE | 2017-07-22 00:18 | CP.PCM.PN ---
Subjective - Date & Time of Evaluation Date of Evaluation: 07/21/17 Time of Evaluation: 23:15 - Subjective Subjective: Pt seen at the request of his RN who stated pt has been admitted to telemetry bed,but wants to leave AMA now. He was admitted with Dx of AMS,Overdose,Fall. Pt is currently alert,oriented x3, is in no clinical distress. His VS are stable. Pt denies any suicidal intent. He states he does not want any further examinations,tests or treatment at this facility. He was told of the huge risks he is taking by signing out AMA,namely the undesired effects of whatever he took ,and these include,AMS,seizures, even . Patient states he understands what he is told and is willing to take the risk. Advised to return to the ER if needed and /or follow up with PMD. Time spent with pt 25 mins Objective - Vital Signs/Intake and Output Vital Signs (last 24 hours): Temp Pulse Resp BP Pulse Ox 98.0 F 86 15 153/82 H 95 07/21/17 17:26 07/21/17 19:44 07/21/17 19:44 07/21/17 19:44 07/21/17 19:44 - Medications Medications: Current Medications Sodium Chloride (Sodium Chloride 0.9%) 1,000 mls @ 100 mls/hr IV .Q10H [facility]
--- NOTE | 2017-07-22 08:20 | CT ---
PROCEDURE: CT HEAD WITHOUT CONTRAST. HISTORY: fall, r/o bleed COMPARISON: 07/11/2017 TECHNIQUE: Axial computed tomography images were obtained through the head/brain without intravenous contrast. Radiation dose: Total exam DLP = 2070 mGy-cm. This CT exam was performed using one or more of the following dose reduction techniques: Automated exposure control, adjustment of the mA and/or kV according to patient size, and/or use of iterative reconstruction technique. FINDINGS: HEMORRHAGE: No intracranial hemorrhage. BRAIN: No mass effect or edema. No atrophy or chronic microvascular ischemic changes. 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 No change from prior exam. VENTRICLES: Unremarkable. No hydrocephalus. CALVARIUM: Unremarkable. PARANASAL SINUSES: Unremarkable as visualized. No significant inflammatory changes. MASTOID AIR CELLS: Unremarkable as visualized. No inflammatory changes. OTHER FINDINGS: None. IMPRESSION: No acute hemorrhage. No change from prior exam.
--- NOTE | 2017-07-22 09:24 | RAD ---
HISTORY: medical clearance COMPARISON: 07/11/2017 FINDINGS: LUNGS: No active pulmonary disease. PLEURA: No significant pleural effusion identified, no pneumothorax apparent. CARDIOVASCULAR: Normal. OSSEOUS STRUCTURES: No significant abnormalities. VISUALIZED UPPER ABDOMEN: Normal. OTHER FINDINGS: None. IMPRESSION: No active disease.
--- NOTE | 2017-07-22 10:35 | RAD ---
PROCEDURE: Radiographs of the right elbow. HISTORY: rt. elbow abrasion, fall COMPARISON: No prior. FINDINGS: BONES: Normal. No fracture. JOINTS: Normal. No osteoarthritis. SOFT TISSUES: Normal. JOINT EFFUSION: None. OTHER FINDINGS: None. IMPRESSION: Unremarkable radiographs of the right elbow.
--- NOTE | 2017-07-22 22:44 | CARD ---
APPROVED REPORT EKG Measurement Heart [id number] <Conclusion> Sinus tachycardia Otherwise normal ECG
== END 2017-07-21 23:37 | disposition left against medical advice (07) ==
LOC: ED 17:03 → UNDOADMIN 19:52 → ERH 19:52
DX: S50.311A Abrasion of right elbow, initial encounter (principal); W18.30XA Fall on same level, unspecified, initial encounter; Y92.524 Gas station as the place of occurrence of the external cause; T50.994A Poisoning by other drugs, medicaments and biological substances, undetermined, initial encounter; Y92.89 Other specified places as the place of occurrence of the external cause; R41.82 Altered mental status, unspecified; E11.9 Type 2 diabetes mellitus without complications; F17.210 Nicotine dependence, cigarettes, uncomplicated; Z23 Encounter for immunization
CPT/HCPCS: 70450; 71045; 73080; 80053; 81003; 82550; 82948; 83735; 85025; 90471; 90715; 93005; 96360; 99285; G0480; J7030

== ENCOUNTER 2017-10-10 15:01 | Emergency (ER) | payer MEDICARE ==
[2017-10-10 15:01] VITALS: BMI 25.7
[2017-10-10 15:20] VITALS: TEMP 98
[2017-10-10 18:46] LABS: BASO # 0.07 K/mm3 (0.0-2.0); BASO % 0.9 % (0.0-3.0); EOS # 0.4 (0.0-0.7); EOS % 4.9 % (1.5-5.0); GRAN # 3.32 (1.4-6.5); GRAN % 41.2 % (50.0-68.0); HEMOGLOBIN 15.7 g/dL (14.0-18.0); LYMPH # 3.9 (1.2-3.4); LYMPH % 48.1 % (22.0-35.0); MEAN CELL VOLUME 85.2 fl (80.0-105.0); MEAN PLATELET VOLUME 10.2 fl (7.0-11.0); MONO # 0.4 (0.1-0.6); MONO % 4.9 % (1.0-6.0); RBC 5.42 10^6/uL (3.5-6.1); RED CELL DISTRIBUTION WIDTH 15.3 % (11.5-14.5)
[2017-10-10 18:54] LABS: ALB/GLOB RATIO 1.4 (1.1-1.8); ALBUMIN 4.4 g/dL (3.0-4.8); ALT/SGPT 28 U/L (7-56); AST/SGOT 21 U/L (17-59); BLOOD UREA NITROGEN 18 mg/dL (7-21); CALCIUM 9.3 mg/dL (8.4-10.5); GFR NON-AFRICAN AMERICAN > 60
[2017-10-10 19:05] LABS: TROPONIN I < 0.01 ng/mL
--- NOTE | 2017-10-10 19:19 | ED PDOC ---
Arrival/HPI - General Historian: Patient, EMS <Brianna Zepeda - Last Filed: 10/12/17 11:14> <Wolfgang Jenkins - Last Filed: 10/13/17 20:15> - General Chief Complaint: Alcohol Ingestion Time Seen by Provider: 10/10/17 15:16 - History of Present Illness Narrative History of Present Illness (Text): 10/10/17 18:55 57-year-old male presents today brought in by ambulance after being found outside of a liquor store. Patient admits to drinking alcohol today. He denies drug use. He denies trauma or injury. He denies chest pain or shortness of breath. Denies fevers or chills. No dizziness or weakness. He denies abdominal pain. (Brianna Zepeda) Past Medical History - Provider Review Nursing Documentation Reviewed: Yes - Travel History Have you recently traveled outside [place] w/in the past 3 mons?: No - Past History Past History: No Previous - Infectious Disease Hx of Infectious Diseases: None - Tetanus Immunization Tetanus Immunization: Unknown - Past Medical History Past Medical History: No Previous - Cardiac Hx Hypertension: No - Pulmonary Hx Respiratory Disorders: No Hx Tuberculosis: No - HEENT Hx HEENT Disorder: No - Renal Hx Renal Disorder: No - Endocrine/Metabolic Hx Endocrine Disorders: Yes Hx Diabetes Mellitus Type 2: Yes - Hematological/Oncological Hx Blood Disorders: No - Integumentary Hx Dermatological Disorder: No - Musculoskeletal/Rheumatological Hx Falls: Yes - Gastrointestinal Hx Gastrointestinal Disorders: No - Genitourinary/Gynecological Hx Sexually Transmitted Diseases: No - Psychiatric Hx Depression: No Hx Substance Use: No (denies) - Past Surgical History Past Surgical History: Unable to Obtain - Surgical History Hx Orthopedic Surgery: Yes (back surgery x2) - Anesthesia Hx Anesthesia: Yes Hx Anesthesia Reactions: No Hx Malignant Hyperthermia: No - Suicidal Assessment Feels Threatened In Home Enviroment: No <Brianna Zepeda - Last Filed: 10/12/17 11:14> Family/Social History - Physician Review Nursing Documentation Reviewed: Yes Family/Social History: Unknown Family HX Smoking Status: Heavy Smoker > 10 Cigarettes Daily Hx Alcohol Use: Yes (pt denies) Hx Substance Use: No (denies) Hx Substance Use Treatment: No <Brianna Zepeda - Last Filed: 10/12/17 11:14> Allergies/Home Meds <Brianna Zepeda - Last Filed: 10/12/17 11:14> <Wolfgang Jenkins - Last Filed: 10/13/17 20:15> Allergies/Adverse Reactions: Allergies Unobtainable Allergy (Verified 10/10/17 15:53) Home Medications: Home Meds Medication Instructions Recorded Confirmed Unobtainable 07/11/17 10/10/17 Review of Systems - Review of Systems Constitutional: absent: Fevers Respiratory: absent: SOB, Cough Cardiovascular: absent: Chest Pain, Palpitations Gastrointestinal: absent: Abdominal Pain, Vomiting Genitourinary Male: absent: Dysuria Musculoskeletal: absent: Arthralgias, Back Pain, Neck Pain Skin: absent: Rash, Pruritis Neurological: absent: Headache, Dizziness Psychiatric: absent: Anxiety, Depression, Suicidal Ideation <Brianna Zepeda - Last Filed: 10/12/17 11:14> Physical Exam Vital Signs Reviewed: Yes Temperature: Afebrile Blood Pressure: Normal Pulse: Regular Respiratory Rate: Normal Appearance: Positive for: Well-Appearing, Non-Toxic, Comfortable Pain Distress: None Mental Status: Positive for: Alert and Oriented X 3, Agitated - Systems Exam Head: Present: Atraumatic Pupils: Present: PERRL Extroacular Muscles: Present: EOMI Mouth: Present: Moist Mucous Membranes Neck: Present: Normal Range of Motion Respiratory/Chest: Present: Clear to Auscultation Cardiovascular: Present: Regular Rate and Rhythm Abdomen: No: Tenderness, Distention, Rebound, Guarding Back: Present: Normal Inspection Upper Extremity: Present: Normal ROM Lower Extremity: Present: Normal ROM Neurological: Present: GCS=15, Speech Normal Skin: Present: Warm, Dry, Normal Color Psychiatric: Present: Alert, Oriented x 3 <Brianna Zepeda - Last Filed: 10/12/17 11:14> Vital Signs Temp Pulse Resp BP Pulse Ox 10/11/17 00:11 98 10/11/17 00:09 88 20 115/70 98 10/10/17 20:50 90 18 118/72 98 10/10/17 19:37 84 10/10/17 19:08 90 19 116/70 97 10/10/17 15:19 98.0 F 17 101/66 98 Medical Decision Making <Brianna Zepeda - Last Filed: 10/12/17 11:14> <Wolfgang Jenkins - Last Filed: 10/13/17 20:15> ED Course and Treatment: 10/10/17 19:19 57-year-old male presents today agitated spitting and swinging at staff. Patient admits to drinking alcohol today. And denies any complaints. Patient was cooperative in the emergency room for shortness period of time and then again became agitated, swinging and fighting with staff for which she was placed into 4 point restraints and given Ativan IM. pt placed on 1;1 cbc: wnl cmp: wnl trop; etoh; 235 ekg; NSR at 84b/m no st elevations cxr; wnl head CT: FINDINGS: Brain: Bilateral frontal gliosis, unchanged. Diffuse cerebral volume loss and chronic microvascular white matter changes. Ventricles: Unremarkable. Bones/joints: Unremarkable. No acute fracture. Soft tissues: Unremarkable. Sinuses: Unremarkable as visualized. Mastoid air cells: Unremarkable as visualized. IMPRESSION: No acute intracranial pathology or traumatic injury. Stable chronic changes as above. 10/10/17 19:22 pt reassessment; pt non toxic well appearing; feeling better; alert and oriented ; no distress; 1;1 discontinued as patients behavior has improved. pt discharged home into the care of his son; impression; alcohol use increase fluids follow up with the primary care physician within the next 2 days return if symptoms worsen,persist or if new symptoms develop. (Brianna Zepeda) - Lab Interpretations Lab Results: 10/10/17 18:20 10/10/17 18:20 Lab Results 10/10/17 18:20: WBC 8.0, RBC 5.42, Hgb 15.7, Hct 46.2, MCV 85.2, MCH 29.0, MCHC 34.0, RDW 15.3 H, Plt Count 223, MPV 10.2, Gran % 41.2 L, Lymph % (Auto) 48.1 H , [place] % (Auto) 4.9, Eos % (Auto) 4.9, Baso % (Auto) 0.9, Gran # 3.32, Lymph # ( Auto) 3.9 H, [place] # (Auto) 0.4, Eos # (Auto) 0.4, Baso # (Auto) 0.07 10/10/17 18:20: Alcohol, Quantitative 235 H 10/10/17 18:20: Sodium 150 H, Potassium 4.1, Chloride 110 H, Carbon Dioxide 24, Anion Gap 20, BUN 18, Creatinine 0.9, Est GFR ( Amer) > 60, Est GFR (Non- Af Amer) > 60, Random Glucose 129 H, Calcium 9.3, Total Bilirubin 0.3, AST 21, ALT 28, Alkaline Phosphatase 64, Lactate Dehydrogenase 399, Total Creatine Kinase 50, Troponin I < 0.01, Total Protein 7.5, Albumin 4.4, Globulin 3.1, Albumin/Globulin Ratio 1.4 - RAD Interpretation Radiology Orders: 10/10/17 15:41 HEAD W/O CONTRAST [CT] Stat 10/10/17 19:34 CHEST PORTABLE [RAD] Stat - Medication Orders Current Medication Orders: Discontinued Medications Lorazepam (Ativan) 2 mg IM ONCE ONE PRN Reason: Protocol Stop: 10/10/17 16:50 Last Admin: 10/10/17 17:06 Dose: 2 mg IM Administration Charges Document 10/10/17 17:06 [facility] (Rec: 10/10/17 17:08 [facility]-[id number]) Injection Site MAR Injection Site Right Deltoid Charges for Administration # of IM Administrations 1 - PA / [employer] / Resident Statement / has reviewed & agrees with the documentation as recorded. / has examined the patient and agrees with the treatment plan. <Wolfgang Jenkins - Last Filed: 10/13/17 20:15> Disposition/Present on Arrival - Present on Arrival Any Indicators Present on Arrival: No History of DVT/PE: No History of Uncontrolled Diabetes: No Urinary Catheter: No History of Decub. Ulcer: No History Surgical Site Infection Following: None - Disposition Have Diagnosis and Disposition been Completed?: Yes Disposition Time: 00:10 Patient Plan: Discharge <Brianna Zepeda - Last Filed: 10/12/17 11:14> <Wolfgang Jenkins - Last Filed: 10/13/17 20:15> - Disposition Diagnosis: Alcohol abuse Disposition: HOME/ ROUTINE Condition: GOOD Discharge Instructions (ExitCare): Alcohol Abuse and Alcoholism (DC) Additional Instructions: increase fluids follow up with the primary care physician within the next 2 days return if symptoms worsen,persist or if new symptoms develop. Referrals: Diallo West MD [Primary Care Provider] - Follow up with primary Forms: [employer] (Macedonian)
[2017-10-11 00:09] VITALS: O2SAT 98
[2017-10-11 00:10] VITALS: BP 115/70; PULSE 88; RESP 20
--- NOTE | 2017-10-11 08:03 | RAD ---
Date of service: 10/10/2017 HISTORY: ETOH COMPARISON: 07/21/2017. FINDINGS: LUNGS: The lungs are well inflated and clear. PLEURA: No significant pleural effusion identified, no pneumothorax apparent. CARDIOVASCULAR: Normal. OSSEOUS STRUCTURES: No significant abnormalities. VISUALIZED UPPER ABDOMEN: Normal. OTHER FINDINGS: None. IMPRESSION: No acute findings.
--- NOTE | 2017-10-11 08:46 | CT ---
Date of service: 10/10/2017 PROCEDURE: CT HEAD WITHOUT CONTRAST. HISTORY: ETOH COMPARISON: 07/21/2017. TECHNIQUE: Axial computed tomography images were obtained through the head/brain without intravenous contrast. Radiation dose: Total exam DLP = 960.11 mGy-cm. This CT exam was performed using one or more of the following dose reduction techniques: Automated exposure control, adjustment of the mA and/or kV according to patient size, and/or use of iterative reconstruction technique. FINDINGS: HEMORRHAGE: No intracranial hemorrhage. BRAIN: Cystic encephalomalacia in both paramedian inferior frontal lobes and left anterior temporal lobe, sequela of remote trauma. VENTRICLES: There is mild age-related global parenchymal volume loss and proportionate enlargement of the ventricles and cortical sulci. CALVARIUM: There is no calvarial fracture or extracranial soft tissue swelling. PARANASAL SINUSES: Predominantly clear. MASTOID AIR CELLS: Predominantly clear. OTHER FINDINGS: None. IMPRESSION: No acute intracranial abnormality. Chronic bifrontal and left anterior temporal encephalomalacia, sequela of remote traumatic contusions. A preliminary report was provided by [employer].
--- NOTE | 2017-10-11 17:58 | CARD ---
APPROVED REPORT Date of service: 10/10/2017 EKG Measurement Heart [id number] 150P69 [id number] <Conclusion> Normal sinus rhythm Nonspecific T wave abnormality Abnormal ECG
== END 2017-10-11 00:11 | disposition home or self-care (01) ==
LOC: ED 15:01
DX: F10.10 Alcohol abuse, uncomplicated (principal); E11.9 Type 2 diabetes mellitus without complications; F17.210 Nicotine dependence, cigarettes, uncomplicated
CPT/HCPCS: 70450; 71045; 80053; 82550; 83615; 84484; 85025; 93005; 96372; 99285; G0480; J2060

== ENCOUNTER 2017-10-18 19:59 | Emergency (ER) | payer MEDICARE ==
[2017-10-18 19:59] VITALS: BMI 25.7
[2017-10-18 20:18] VITALS: RESP 18; TEMP 98.3
[2017-10-18] MEDS: DiphenhydrAMINE 50 mg/ml Inj IM STA (20:32)
[2017-10-18] MEDS: DiphenhydrAMINE 50 mg/ml Inj ONE (20:35)
--- NOTE | 2017-10-18 21:11 | ED PDOC ---
Arrival/HPI - General Historian: Patient - History of Present Illness Time/Duration: Other (earlier today) Symptom Onset: Gradual Activities at Onset: Light Context: Home - General Chief Complaint: Alcohol Ingestion Time Seen by Provider: 10/18/17 20:27 - History of Present Illness Narrative History of Present Illness (Text): 10/18/17 21:06 A 57 year old with past medical history of alcohol abuse presents to the emergency department s/p fall due to alcohol intoxication earlier today. Patient reports he tried getting up today and fell cutting the bridge of his nose. Patient states he wants to leave. Patient denies any loss of consciousness , chest pain, abdominal pain, back pain, neck pain, headache. States that he has no other complaints. (Chip PANDYA,Yadi Berry) Past Medical History - Provider Review Nursing Documentation Reviewed: Yes - Past History Past History: No Previous - Infectious Disease Hx of Infectious Diseases: None - Tetanus Immunization Tetanus Immunization: Unknown - Past Medical History Past Medical History: No Previous - Cardiac Hx Cardiac Disorders: No Hx Hypertension: No - Pulmonary Hx Respiratory Disorders: No Hx Tuberculosis: No - Neurological Hx Neurological Disorder: No - HEENT Hx HEENT Disorder: No - Renal Hx Renal Disorder: No - Endocrine/Metabolic Hx Endocrine Disorders: Yes Hx Diabetes Mellitus Type 2: Yes - Hematological/Oncological Hx Blood Disorders: No - Integumentary Hx Dermatological Disorder: No - Musculoskeletal/Rheumatological Hx Musculoskeletal Disorders: Yes Hx Falls: Yes - Gastrointestinal Hx Gastrointestinal Disorders: No - Genitourinary/Gynecological Hx Genitourinary Disorders: No Hx Sexually Transmitted Diseases: No - Psychiatric Hx Psychophysiologic Disorder: No Hx Depression: No Hx Substance Use: No (denies) - Past Surgical History Past Surgical History: Unable to Obtain - Surgical History Hx Orthopedic Surgery: Yes (back surgery x2) - Anesthesia Hx Anesthesia: Yes Hx Anesthesia Reactions: No Hx Malignant Hyperthermia: No - Suicidal Assessment Feels Threatened In Home Enviroment: No Family/Social History - Physician Review Nursing Documentation Reviewed: Yes Family/Social History: Unknown Family HX Smoking Status: Heavy Smoker > 10 Cigarettes Daily Hx Alcohol Use: Yes Hx Substance Use: No (denies) Hx Substance Use Treatment: No Allergies/Home Meds Allergies/Adverse Reactions: Allergies Unobtainable Allergy (Verified 10/10/17 15:53) Home Medications: Home Meds Medication Instructions Recorded Confirmed Unobtainable 07/11/17 10/19/17 Review of Systems - Physician Review All systems were reviewed & negative as marked: Yes - Review of Systems Constitutional: absent: Fevers, Night Sweats ENT: Other (+cut on bridge of nose) Respiratory: absent: SOB Cardiovascular: absent: Chest Pain Gastrointestinal: absent: Diarrhea, Nausea, Vomiting Genitourinary Male: absent: Urinary Output Changes Musculoskeletal: absent: Back Pain, Neck Pain Neurological: absent: Headache, Dizziness Physical Exam - Physical Exam Physical Exam Limitations: Uncooperative (+Smelled of alcohol) Vital Signs Reviewed: Yes Temperature: Afebrile Blood Pressure: Hypotensive Pulse: Tachycardic Respiratory Rate: Normal Appearance: Positive for: Well-Appearing, Non-Toxic, Comfortable Pain Distress: None Mental Status: Positive for: Alert and Oriented X 3 Finger Stick Blood Glucose: 105 - Systems Exam Head: Present: Atraumatic, Normocephalic Pupils: Present: PERRL Extroacular Muscles: Present: EOMI Conjunctiva: Present: Normal Mouth: Present: Moist Mucous Membranes Nose (External): Present: Laceration (+1cm laceration to bridge of nose), Other (+crusted blood to the nares). No: Atraumatic, Abrasion, Contusion, Lesions Neck: Present: Normal Range of Motion Respiratory/Chest: Present: Clear to Auscultation, Good Air Exchange. No: Respiratory Distress, Accessory Muscle Use Cardiovascular: Present: Regular Rate and Rhythm, Normal S1, S2. No: Murmurs Abdomen: No: Tenderness, Distention, Peritoneal Signs Back: Present: Normal Inspection. No: Midline Tenderness Upper Extremity: Present: Normal Inspection. No: Cyanosis, Edema Lower Extremity: Present: Normal Inspection. No: Edema Neurological: Present: GCS=15, CN II-XII Intact Skin: Present: Warm, Dry, Normal Color. No: Rashes Psychiatric: Present: Alert, Oriented x 3 Vital Signs Temp Pulse Resp BP Pulse Ox 10/19/17 05:50 87 18 121/75 100 10/19/17 03:00 82 18 121/65 100 10/18/17 23:59 84 18 118/62 100 10/18/17 20:10 98.3 F 95 H 18 117/43 L 96 Medical Decision Making ED Course and Treatment: 10/19/17 05:09 Patient's symptoms has resolved, has shown no septal hematoma upon exam and is clear for discharge. (Diaz Perkins) 10/18/17 21:15 Impression: 57 year old male presenting to the emergency department s/p fall due to alcohol intoxication. Plan: -- Head CT without contrast -- CT Maxillofacial without contrast -- Labs -- CBC -- Benadryl -- Ativan -- Boostrix -- Urinalysis -- Reassess and disposition Prior Visits: Notes and results from previous visits were reviewed. On 10/11/17 for alcohol abuse and was discharged when symptoms improved. Progress Notes: 10/18/17 23:51 Labs reviewed, patient's alcohol level is 225. Laceration repair performed by AMY. On re-evaluation, patient is calm and cooperative at this time. 1 restraint removed. Patient going to CT now. 10/19/17 01:19 CT maxillofacial w/o contrast : FINDINGS: Bones/joints: Comminuted minimally displaced nasal bone fracture. Soft tissues: No acute findings. Orbits: No acute findings. Sinuses: No acute findings. No air-fluid levels. IMPRESSION: Comminuted minimally displaced nasal bone fracture. Dictated and Authenticated by: Edwin Mccurdy MD 10/19/2017 12:46 AM Eastern Time ([place] & [place]) CT head w/o contrast : FINDINGS: Brain: Bilateral frontal encephalomalacia. No hemorrhage. No significant white matter disease. Ventricles: No acute findings. No ventriculomegaly. Bones/joints: No acute findings. No acute fracture. Soft tissues: No acute findings. Sinuses: No acute findings. No acute sinusitis. Mastoid air cells: No acute findings. No mastoid effusion. IMPRESSION: No acute findings. Dictated and Authenticated by: Edwin Mccurdy MD 10/19/2017 12:42 AM Eastern Time ([place] & [place]) 10/19/17 01:22 On re-evaluation, patient is sleeping comfortably, in no acute distress, breathing is easy and unlabored. Will continue to observe the patient until he is sober and safe for d/c. (Chip PANDYA,Yadi Berry) - Lab Interpretations Lab Results: 10/18/17 22:54 10/18/17 22:54 Lab Results 10/19/17 00:00: Urine Opiates Screen Negative, Urine Methadone Screen Negative, Ur Barbiturates Screen Negative, Ur Phencyclidine Scrn Negative, Ur Amphetamines Screen Negative, U Benzodiazepines Scrn Negative, U Oth Cocaine Metabols Negative, U Cannabinoids Screen Negative 10/19/17 00:00: Urine Color Light yellow, Urine Appearance Clear, Urine pH 6.0, Ur Specific [place] 1.010, Urine Protein Negative, Urine Glucose (UA) Negative, Urine Ketones Negative, Urine Blood Negative, Urine Nitrate Negative, Urine Bilirubin Negative, Urine Urobilinogen 0.2, Ur Leukocyte Esterase Negative 10/18/17 22:54: Alcohol, Quantitative 225 H 10/18/17 22:54: Sodium 149 H, Potassium 4.0, Chloride 110 H, Carbon Dioxide 22, Anion Gap 21 H, BUN 19, Creatinine 1.3, Est GFR ( Amer) > 60, Est GFR ( Non-Af Amer) 57, Random Glucose 96, Calcium 9.2, Total Bilirubin 0.2, AST 41, ALT 36, Alkaline Phosphatase 63, Total Protein 7.4, Albumin 4.3, Globulin 3.1, Albumin/Globulin Ratio 1.4 10/18/17 22:54: WBC 7.6, RBC 5.55, Hgb 16.0, Hct 46.7, MCV 84.1, MCH 28.8, MCHC 34.3, RDW 14.9 H, Plt Count 205, MPV 9.9, Gran % 48.6 L, Lymph % (Auto) 41.3 H, [place] % (Auto) 4.9, Eos % (Auto) 4.5, Baso % (Auto) 0.7, Gran # 3.69, Lymph # ( Auto) 3.1, [place] # (Auto) 0.4, Eos # (Auto) 0.3, Baso # (Auto) 0.05 10/18/17 20:12: POC Glucose (mg/dL) 105 - RAD Interpretation Radiology Orders: 10/18/17 20:56 HEAD W/O CONTRAST [CT] Stat 10/18/17 20:57 MAXILLOFACIAL W/O CONTRAST [CT] Stat - Medication Orders Current Medication Orders: Discontinued Medications Diphenhydramine HCl (Benadryl) 50 mg IM STAT STA Stop: 10/18/17 20:29 Last Admin: 10/18/17 20:32 Dose: 50 mg IM Administration Charges Document 08/31/18 20:32 AD (Rec: 10/18/17 20:33 AD [id number]) Injection Site MAR Injection Site Left Deltoid Charges for Administration # of IM Administrations 1 Lorazepam (Ativan) 2 mg IM ONCE ONE PRN Reason: Protocol Stop: 10/18/17 20:30 Last Admin: 10/18/17 20:33 Dose: 2 mg IM Administration Charges Document 10/18/17 20:33 AD (Rec: 10/18/17 20:33 AD [id number]) Injection Site MAR Injection Site Right Deltoid Charges for Administration # of IM Administrations 1 Tetanus/Reduced Diphtheria/Acell Pertussis (Boostrix Vaccine Inj) 0.5 ml IM .ONCE ONE Stop: 10/18/17 20:58 Last Admin: 10/18/17 21:15 Dose: 0.5 ml Immunization Registry Document 10/18/17 21:15 AD (Rec: 10/18/17 22:07 AD [id number]) Immunization Registry Consent Date 10/10/17 Procedure: Wound Repair - Time Performed Time Performed: 23:45 - Time Out Time Out: Site verified, Patient ID confirmed, Sterile procedures obs. 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 - Scribe Statement The provider has reviewed the documentation as recorded by the Scribe - Scribe Statement Genesis Mota All medical record entries made by the Scribe were at my direction and personally dictated by me. I have reviewed the chart and agree that the record accurately reflects my personal performance of the history, physical exam, medical decision making, and the department course for this patient. I have also personally directed, reviewed, and agree with the discharge instructions and disposition. (Chip PANDYA,Yadi Berry) Disposition/Present on Arrival - Present on Arrival Any Indicators Present on Arrival: No History of DVT/PE: No History of Uncontrolled Diabetes: No Urinary Catheter: No History of Decub. Ulcer: No History Surgical Site Infection Following: None - Disposition Have Diagnosis and Disposition been Completed?: No Disposition Time: 05:00 Patient Plan: Discharge - Disposition Diagnosis: Alcohol intoxication, Head injury, Nasal fracture Disposition: HOME/ ROUTINE Condition: STABLE Discharge Instructions (ExitCare): Nose Fracture, Closed Head Injury, Alcohol Abuse and Alcoholism (DC) Additional Instructions: VERONICA LÓPEZ, thank you for letting us take care of you today. Your provider was Diaz Perkins and you were treated for FALL/ ETOH. The emergency medical care you received today was directed at your acute symptoms. If you were prescribed any medication, please fill it and take as directed. It may take several days for your symptoms to resolve. Return to the Emergency Department if your symptoms worsen, do not improve, or if you have any other problems. Please contact your doctor or call one of the physicians/clinics you have been referred to that are listed on the Patient Visit Information form that is included in your discharge packet. Bring any paperwork you were given at discharge with you along with any medications you are taking to your follow up visit. Our treatment cannot replace ongoing medical care by a primary care provider outside of the emergency department. Thank you for allowing the [facility] team to be part of your care today. If you had an X-Ray or CT scan: A Radiologist will review the ED reading if any change in treatment is needed we will contact you. If you had a blood, urine, or wound culture: It will take several days for the results, if any change in treatment is needed we will contact you. If you had an STI test: It will take 48 hours for the results. Please call after 1 week if you have not heard back. Referrals: Diallo West MD [Primary Care Provider] - Follow up with primary Forms: [facility] (Panamanian)
[2017-10-18] MEDS: TDAP Vaccine 0.5 mL Syr IM ONE (21:15)
[2017-10-18 23:01] LABS: BASO # 0.05 K/mm3 (0.0-2.0); BASO % 0.7 % (0.0-3.0); EOS # 0.3 (0.0-0.7); EOS % 4.5 % (1.5-5.0); GRAN # 3.69 (1.4-6.5); GRAN % 48.6 % (50.0-68.0); LYMPH # 3.1 (1.2-3.4); LYMPH % 41.3 % (22.0-35.0); MEAN CELL VOLUME 84.1 fl (80.0-105.0); MEAN CORPUSCULAR HEMOGLOBIN 28.8 pg (25.0-35.0); MEAN CORPUSCULAR HGB CONC 34.3 g/dl (31.0-37.0); MEAN PLATELET VOLUME 9.9 fl (7.0-11.0); MONO # 0.4 (0.1-0.6); MONO % 4.9 % (1.0-6.0); RBC 5.55 10^6/uL (3.5-6.1); RED CELL DISTRIBUTION WIDTH 14.9 % (11.5-14.5); WHITE BLOOD COUNT 7.6 10^3/ul (4.5-11.0)
[2017-10-18 23:21] LABS: ALB/GLOB RATIO 1.4 (1.1-1.8); ALBUMIN 4.3 g/dL (3.0-4.8); ALT/SGPT 36 U/L (7-56); AST/SGOT 41 U/L (17-59); BLOOD UREA NITROGEN 19 mg/dL (7-21); CALCIUM 9.2 mg/dL (8.4-10.5); GFR NON-AFRICAN AMERICAN 57
[2017-10-19 00:46] LABS: BARBITURATES, UR NEGATIVE (NEGATIVE); BENZODIAZEPINES, UR NEGATIVE (NEGATIVE); OPIATES, UR NEGATIVE (NEGATIVE); PHENCYCLIDINE, UR NEGATIVE (NEGATIVE)
[2017-10-19 00:47] LABS: URINE BILIRUBIN NEGATIVE (NEGATIVE); URINE BLOOD NEGATIVE (NEGATIVE); URINE GLUCOSE (UA) NEGATIVE (NEGATIVE); URINE LEUKOCYTE ESTERASE NEGATIVE Leu/uL (NEGATIVE); URINE PROTEIN NEGATIVE mg/dL (<30 mg/dL); URINE UROBILINOGEN 0.2 E.U./dL (<1 E.U./dL)
[2017-10-19 00:48] LABS: URINE APPEARANCE CLEAR (CLEAR); URINE COLOR LIGHT YELLOW (YELLOW)
[2017-10-19 02:57] VITALS: O2SAT 100
[2017-10-19 06:19] VITALS: BP 121/75; PULSE 87
--- NOTE | 2017-10-19 09:52 | CT ---
Date of service: 10/19/2017 PROCEDURE: CT HEAD WITHOUT CONTRAST. HISTORY: trauma COMPARISON: Noncontrast head CT performed 10/10/17 TECHNIQUE: Axial computed tomography images were obtained through the head/brain without intravenous contrast. Radiation dose: Total exam DLP = 896.83 mGy-cm. This CT exam was performed using one or more of the following dose reduction techniques: Automated exposure control, adjustment of the mA and/or kV according to patient size, and/or use of iterative reconstruction technique. FINDINGS: Streak artifact obscures evaluation of the skullbase. HEMORRHAGE: No intracranial hemorrhage. BRAIN: Diffuse atrophy with prominence of the ventricles and sulci noted. Bifrontal encephalomalacia. Intracranial atherosclerosis. No mass effect or edema. Scattered periventricular and subcortical white matter hypodensities, which are nonspecific, but often seen with chronic microvascular ischemic disease. Please note that MRI with diffusion imaging is more sensitive in the detection of acute ischemic event. VENTRICLES: No hydrocephalus. CALVARIUM: Unremarkable. PARANASAL SINUSES: Unremarkable as visualized. No significant inflammatory changes. MASTOID AIR CELLS: Unremarkable as visualized. No inflammatory changes. OTHER FINDINGS: None. IMPRESSION: Bifrontal encephalomalacia. Nonspecific white matter changes. Atrophy. Preliminary impression was provided by virtual radiologic.
--- NOTE | 2017-10-19 10:21 | CT ---
Date of service: 10/19/17 CT maxillofacial bones without IV contrast Indication: Trauma Comparison: Maxillofacial CT without contrast performed 02/06/17 Technique: Axial computed tomography images were obtained of the maxillofacial bones without the use of intravenous contrast. Coronal and sagittal reformatted images were generated and reviewed. This CT exam was performed using 1 or more of the following dose reduction techniques: Automated exposure control, adjustment of the MAA and/or kV according to patient size, and/or use of iterative reconstruction technique. Radiation dose: Total exam DLP = 735.66 mGy-cm. Findings: Soft tissue swelling. Comminuted mildly displaced bilateral nasal bone fractures. The remainder of the visualized facial bones appear intact. The orbits appear unremarkable. The temporomandibular joints are located. The paranasal sinuses appear clear. The visualized brain appears unremarkable. Impression: Soft tissue swelling. Comminuted mildly displaced bilateral nasal bone fractures. Preliminary impression was provided by virtual radiologic.
== END 2017-10-19 05:50 | disposition home or self-care (01) ==
LOC: ED 19:59
DX: F10.129 Alcohol abuse with intoxication, unspecified (principal); S02.2XXA Fracture of nasal bones, initial encounter for closed fracture; W19.XXXA Unspecified fall, initial encounter; E11.9 Type 2 diabetes mellitus without complications; F17.210 Nicotine dependence, cigarettes, uncomplicated; Z23 Encounter for immunization
CPT/HCPCS: 70450; 70486; 80053; 81003; 82948; 85025; 90471; 90715; 96372; 99283; G0480; J1200; J1630; J2060

== ENCOUNTER 2017-10-24 18:46 | Emergency (ER) | payer MEDICARE ==
[2017-10-24 19:26] VITALS: TEMP 98.5; BMI 26.6
--- NOTE | 2017-10-24 19:44 | ED PDOC ---
Arrival/HPI - General Chief Complaint: Psychiatric Evaluation Time Seen by Provider: 10/24/17 19:16 EM Caveat: Intoxicated - History of Present Illness Narrative History of Present Illness (Text): 10/24/17 19:27 57 year old male, with past history of alcohol abuse, presents to the Emergency Department s/p alcohol intoxication prior to arrival. Patient was found outside few blocks away from his home by EMS and was brought to the Emergency Department subsequently for evaluation. Patient admits to drinking today. Patient denies any trauma or injury. HPI and ROS limited secondary to patient's state of intoxication. Time/Duration: Prior to Arrival Symptom Onset: Gradual Symptom Course: Unchanged Activities at Onset: Light Context: Street Past Medical History - Provider Review Nursing Documentation Reviewed: Yes - Past History Past History: No Previous - Infectious Disease Hx of Infectious Diseases: None - Tetanus Immunization Tetanus Immunization: Unknown - Past Medical History Past Medical History: No Previous - Cardiac Hx Cardiac Disorders: No - Pulmonary Hx Respiratory Disorders: No Hx Tuberculosis: No - Neurological Hx Neurological Disorder: No - HEENT Hx HEENT Disorder: No - Renal Hx Renal Disorder: No - Endocrine/Metabolic Hx Endocrine Disorders: Yes Hx Diabetes Mellitus Type 2: Yes - Hematological/Oncological Hx Blood Disorders: No - Integumentary Hx Dermatological Disorder: No - Musculoskeletal/Rheumatological Hx Musculoskeletal Disorders: Yes Hx Falls: Yes - Gastrointestinal Hx Gastrointestinal Disorders: No - Genitourinary/Gynecological Hx Genitourinary Disorders: No - Psychiatric Hx Psychophysiologic Disorder: No Hx Substance Use: No (denies) - Past Surgical History Past Surgical History: Unable to Obtain - Surgical History Hx Orthopedic Surgery: Yes (back surgery x2) - Anesthesia Hx Anesthesia: Yes Hx Anesthesia Reactions: No Hx Malignant Hyperthermia: No - Suicidal Assessment Feels Threatened In Home Enviroment: No Family/Social History - Physician Review Nursing Documentation Reviewed: Yes Family/Social History: No Known Family HX Smoking Status: Heavy Smoker > 10 Cigarettes Daily Hx Alcohol Use: Yes Hx Substance Use: No (denies) Hx Substance Use Treatment: No Allergies/Home Meds Allergies/Adverse Reactions: Allergies Unobtainable Allergy (Verified 10/24/17 19:03) Home Medications: Home Meds Medication Instructions Recorded Confirmed Unobtainable 07/11/17 10/24/17 Review of Systems - Review of Systems Systems not reviewed;Unavailable: Intoxicated Physical Exam Vital Signs Reviewed: Yes Vital Signs Temp Pulse Resp BP Pulse Ox 10/24/17 19:02 98.5 F 96 H 19 110/77 95 Temperature: Afebrile Blood Pressure: Normal Pulse: Regular Respiratory Rate: Normal Appearance: Positive for: Other (Intoxicated; acohol smell on breath) Pain Distress: None - Systems Exam Head: Present: Atraumatic, Normocephalic Pupils: Present: PERRL Extroacular Muscles: Present: EOMI Conjunctiva: Present: Injected Mouth: Present: Moist Mucous Membranes, Other (Strong alcohol smell on breath) Neck: Present: Normal Range of Motion Respiratory/Chest: Present: Clear to Auscultation, Good Air Exchange. No: Respiratory Distress, Accessory Muscle Use Cardiovascular: Present: Regular Rate and Rhythm, Normal S1, S2. No: Murmurs Abdomen: No: Tenderness, Distention, Peritoneal Signs Back: Present: Normal Inspection Upper Extremity: Present: Normal Inspection. No: Cyanosis, Edema Lower Extremity: Present: Normal Inspection. No: Edema Neurological: Present: GCS=15, CN II-XII Intact, Speech Normal Skin: Present: Warm, Dry, Normal Color. No: Rashes Psychiatric: Present: Alert, Intoxicated Medical Decision Making ED Course and Treatment: 10/24/17 19:27 Impression: 57 year old male presents to the Emergency Department s/p alcohol intoxication. Differential Diagnosis included but are not limited to: alcohol abuse Plan: -- Serum alcohol level -- Reassess and disposition Prior Visits: Notes and results from previous visits were reviewed. Progress Notes: FS 87 Alcohol 250 On reevaluation, patient is awake, alert, oriented 3 in no acute distress. Patient has no complaints at this time, states that he feels well and reports no history of trauma or injury but admits to drinking today. On exam patient is speaking in full sentences, no slurred speech, no tremors, he shouldn't ambulate to and from the bathroom with a normal steady gait. Patient is stable for discharge. - Lab Interpretations Lab Results: Lab Results 10/24/17 19:10: Alcohol, Quantitative 250 H 10/24/17 19:10: POC Glucose (mg/dL) 87 - PA / [employer] GATHERER / Resident Statement MD/DO has reviewed & agrees with the documentation as recorded. - Scribe Statement The provider has reviewed the documentation as recorded by the Yesiibe Nettie Law. All medical record entries made by the Scribe were at my direction and personally dictated by me. I have reviewed the chart and agree that the record accurately reflects my personal performance of the history, physical exam, medical decision making, and the department course for this patient. I have also personally directed, reviewed, and agree with the discharge instructions and disposition. Disposition/Present on Arrival - Present on Arrival Any Indicators Present on Arrival: No History of DVT/PE: No History of Uncontrolled Diabetes: No Urinary Catheter: No History of Decub. Ulcer: No History Surgical Site Infection Following: None - Disposition Have Diagnosis and Disposition been Completed?: Yes Diagnosis: Alcohol intoxication Disposition: HOME/ ROUTINE Disposition Time: 22:20 Patient Plan: Discharge Patient Problems: Current Active Problems Problem Status Onset Alcohol intoxication Acute Condition: STABLE Discharge Instructions (ExitCare): Alcohol Abuse and Alcoholism (DC) Referrals: [facility] [place] [Outside] - Follow up with primary Forms: [facility] (Namibian)
[2017-10-25 00:07] VITALS: BP 118/70; PULSE 88; RESP 20; O2SAT 98
== END 2017-10-25 00:07 | disposition home or self-care (01) ==
LOC: ED 18:46
DX: F10.129 Alcohol abuse with intoxication, unspecified (principal); E11.9 Type 2 diabetes mellitus without complications; F17.210 Nicotine dependence, cigarettes, uncomplicated
CPT/HCPCS: 82948; 99283; G0480

== ENCOUNTER 2017-11-05 19:36 | Emergency (ER) | payer MEDICARE ==
[2017-11-05 19:45] VITALS: BMI 27.3
--- NOTE | 2017-11-05 20:55 | ED PDOC ---
Arrival/HPI - General Chief Complaint: Alcohol Ingestion Time Seen by Provider: 11/05/17 19:51 Historian: Patient - History of Present Illness Narrative History of Present Illness (Text): 11/05/17 20:53 A 57 year old male, whose past medical history includes alcohol abuse, presents to the emergency department via EMS for public intoxication. Patient admits to drinking and states he feels fine. Patient denies any fever, chills, chest pain , shortness of breath, nausea, vomiting, diarrhea, urinary symptoms, back pain, neck pain, headache, dizziness, somatic complaints or any other complaints. Time/Duration: Other (earlier tonight) Symptom Onset: Gradual Symptom Course: Improving Activities at Onset: Light Context: Street Past Medical History - Provider Review Nursing Documentation Reviewed: Yes - Past History Past History: No Previous - Infectious Disease Hx of Infectious Diseases: None - Tetanus Immunization Tetanus Immunization: Unknown - Past Medical History Past Medical History: No Previous - Cardiac Hx Cardiac Disorders: No - Pulmonary Hx Respiratory Disorders: No Hx Tuberculosis: No - Neurological Hx Neurological Disorder: No - HEENT Hx HEENT Disorder: No - Renal Hx Renal Disorder: No - Endocrine/Metabolic Hx Endocrine Disorders: Yes Hx Diabetes Mellitus Type 2: Yes - Hematological/Oncological Hx Blood Disorders: No - Integumentary Hx Dermatological Disorder: No - Musculoskeletal/Rheumatological Hx Musculoskeletal Disorders: Yes Hx Falls: Yes - Gastrointestinal Hx Gastrointestinal Disorders: No - Genitourinary/Gynecological Hx Genitourinary Disorders: No - Psychiatric Hx Psychophysiologic Disorder: No Hx Substance Use: No (denies) - Past Surgical History Past Surgical History: Unable to Obtain - Surgical History Hx Orthopedic Surgery: Yes (back surgery x2) - Anesthesia Hx Anesthesia: Yes Hx Anesthesia Reactions: No Hx Malignant Hyperthermia: No - Suicidal Assessment Feels Threatened In Home Enviroment: No Family/Social History - Physician Review Nursing Documentation Reviewed: Yes Family/Social History: Unknown Family HX Smoking Status: Heavy Smoker > 10 Cigarettes Daily Hx Alcohol Use: Yes Hx Substance Use: No (denies) Hx Substance Use Treatment: No Allergies/Home Meds Allergies/Adverse Reactions: Allergies Unobtainable Allergy (Verified 10/24/17 19:03) Home Medications: Home Meds Medication Instructions Recorded Confirmed Unobtainable 07/11/17 11/05/17 Review of Systems - Physician Review All systems were reviewed & negative as marked: Yes - Review of Systems Constitutional: absent: Fevers, Night Sweats Respiratory: absent: SOB Cardiovascular: absent: Chest Pain Gastrointestinal: absent: Diarrhea, Nausea, Vomiting Genitourinary Male: absent: Urinary Output Changes Musculoskeletal: absent: Back Pain, Neck Pain Neurological: absent: Headache, Dizziness Physical Exam Vital Signs Reviewed: Yes Vital Signs Temp Pulse Resp BP Pulse Ox 11/05/17 19:36 98.5 F 98 H 18 112/74 92 L Temperature: Afebrile Blood Pressure: Normal Pulse: Tachycardic Respiratory Rate: Normal Appearance: Positive for: Well-Appearing, Non-Toxic, Comfortable Pain Distress: None Mental Status: Positive for: Alert and Oriented X 3, other (not inebriated) Finger Stick Blood Glucose: 117 - Systems Exam Head: Present: Atraumatic, Normocephalic Pupils: Present: PERRL Extroacular Muscles: Present: EOMI Conjunctiva: Present: Normal Mouth: Present: Moist Mucous Membranes Neck: Present: Normal Range of Motion Respiratory/Chest: Present: Clear to Auscultation, Good Air Exchange. No: Respiratory Distress, Accessory Muscle Use Cardiovascular: Present: Regular Rate and Rhythm, Normal S1, S2. No: Murmurs Abdomen: No: Tenderness, Distention, Peritoneal Signs Back: Present: Normal Inspection Upper Extremity: Present: Normal Inspection. No: Cyanosis, Edema Lower Extremity: Present: Normal Inspection. No: Edema Neurological: Present: GCS=15, CN II-XII Intact, Speech Normal Skin: Present: Warm, Dry, Normal Color. No: Rashes Psychiatric: Present: Alert, Oriented x 3, Normal Insight, Normal Concentration Medical Decision Making ED Course and Treatment: 11/05/17 21:00 Impression: 57 year old male presents to the emergency department via EMS for public intoxication. Plan: -- Reassess and disposition Prior Visits: Notes and results from previous visits were reviewed. Patient was seen on for alcohol intoxication and was discharged when symptoms stabilized. Progress Notes: 11/05/17 23:17 Pt is awake, alert, ambulating with steady gait. Pt clinically sober, in no acute distress. Pt stable for d/c. - Lab Interpretations Lab Results: Lab Results 11/05/17 20:20: POC Glucose (mg/dL) 117 H - Scribe Statement The provider has reviewed the documentation as recorded by the Scribe Genesis Mota All medical record entries made by the Yesiibgopi were at my direction and personally dictated by me. I have reviewed the chart and agree that the record accurately reflects my personal performance of the history, physical exam, medical decision making, and the department course for this patient. I have also personally directed, reviewed, and agree with the discharge instructions and disposition. Disposition/Present on Arrival - Present on Arrival Any Indicators Present on Arrival: No History of DVT/PE: No History of Uncontrolled Diabetes: No Urinary Catheter: No History of Decub. Ulcer: No History Surgical Site Infection Following: None - Disposition Have Diagnosis and Disposition been Completed?: Yes Diagnosis: Alcohol abuse Disposition: HOME/ ROUTINE Disposition Time: 23:32 Patient Plan: Discharge Condition: GOOD Discharge Instructions (ExitCare): Alcohol Abuse and Alcoholism (DC) Referrals: Diallo West MD [Primary Care Provider] - Follow up with primary Alcoholics Anonymous [Outside] - Follow up with primary Forms: [employer] Connect (Mauritian)
[2017-11-06 06:33] VITALS: BP 125/62; PULSE 89; RESP 17; TEMP 98.2; O2SAT 98
== END 2017-11-06 06:33 | disposition home or self-care (01) ==
LOC: ED 19:36
DX: F10.10 Alcohol abuse, uncomplicated (principal); E11.9 Type 2 diabetes mellitus without complications

== ENCOUNTER 2017-12-26 18:03 | Inpatient (IN) | payer MEDICARE ==
[2017-12-26 18:12] VITALS: BMI 25.8
[2017-12-26] MEDS ORDERED: Folic Acid 1 MG, Thiamine 100 MG, Multivitamin (MVI) 10 ML in Dextrose 5% In Water 1,00... IV ONE ×2 (18:19→18:26)
[2017-12-26] MEDS ORDERED: Sodium Chloride 0.9% 1,000 ML IV STA ×3 (18:26→21:34)
[2017-12-26] MEDS: Albuterol-Ipratrop 3 mg / 0.5 (3 ml) UD IH SCH (18:34)
[2017-12-26 18:47] LABS: ALB/GLOB RATIO 1.2 (1.1-1.8); ALBUMIN 3.8 g/dL (3.0-4.8); ALT/SGPT 24 U/L (7-56); AST/SGOT 37 U/L (17-59); BLOOD UREA NITROGEN 17 mg/dL (7-21); CALCIUM 8.8 mg/dL (8.4-10.5); GFR NON-AFRICAN AMERICAN > 60
[2017-12-26 18:58] LABS: B-TYPE NATRIURETIC PEPTIDE 151 pg/mL (0-450); TROPONIN I < 0.01 ng/mL
[2017-12-26 19:12] LABS: BASO # 0.07 K/mm3 (0.0-2.0); BASO % 0.8 % (0.0-3.0); EOS # 0.6 (0.0-0.7); EOS % 7.2 % (1.5-5.0); GRAN # 4.2 (1.4-6.5); GRAN % 49.6 % (50.0-68.0); HEMOGLOBIN 14.5 g/dL (14.0-18.0); LYMPH # 2.9 (1.2-3.4); LYMPH % 34.1 % (22.0-35.0); MEAN CELL VOLUME 90.3 fl (80.0-105.0); MEAN CORPUSCULAR HEMOGLOBIN 29.3 pg (25.0-35.0); MEAN CORPUSCULAR HGB CONC 32.4 g/dl (31.0-37.0); MONO # 0.7 (0.1-0.6); MONO % 8.3 % (1.0-6.0); RBC 4.95 10^6/uL (3.5-6.1); RED CELL DISTRIBUTION WIDTH 14.1 % (11.5-14.5); WHITE BLOOD COUNT 8.5 10^3/uL (4.5-11.0)
[2017-12-26] MEDS ORDERED: cefTRIAXone 1 gm 1 GM/100 ML BAG IVPB STA (19:51)
[2017-12-26] MEDS ORDERED: Azithromycin 500MG/NS 250ml 500 MG/250 ML BAG IVPB STA (19:52)
--- NOTE | 2017-12-26 20:03 | ED PDOC ---
Arrival/HPI - General Chief Complaint: Alcohol Ingestion Time Seen by Provider: 12/26/17 18:11 Historian: Patient - History of Present Illness Narrative History of Present Illness (Text): 12/26/17 20:00 57 year old male, whose past medical history includes alcohol abuse, presents to the emergency department via EMS for public intoxication. Upon arrival, patient's blood pressure was 77/63. Patient also had some audible wheezing. Patient admits to drinking and states he feels fine. Patient denies any fever, chills, shortness of breath, nausea, vomiting, diarrhea, urinary symptoms, back pain, neck pain, headache, dizziness, or any other complaints. PMD Dwaine Time/Duration: Prior to Arrival Symptom Onset: Gradual Past Medical History - Provider Review Nursing Documentation Reviewed: Yes - Past History Past History: No Previous - Infectious Disease Hx of Infectious Diseases: None - Tetanus Immunization Tetanus Immunization: Unknown - Past Medical History Past Medical History: No Previous - Cardiac Hx Cardiac Disorders: No - Pulmonary Hx Respiratory Disorders: No - Neurological Hx Neurological Disorder: No - HEENT Hx HEENT Disorder: No - Renal Hx Renal Disorder: No - Endocrine/Metabolic Hx Endocrine Disorders: Yes Hx Diabetes Mellitus Type 2: Yes - Hematological/Oncological Hx Blood Disorders: No - Integumentary Hx Dermatological Disorder: No - Musculoskeletal/Rheumatological Hx Musculoskeletal Disorders: Yes Hx Falls: Yes - Gastrointestinal Hx Gastrointestinal Disorders: No - Genitourinary/Gynecological Hx Genitourinary Disorders: No - Psychiatric Hx Psychophysiologic Disorder: No Hx Substance Use: No (denies) - Past Surgical History Past Surgical History: Unable to Obtain - Surgical History Hx Orthopedic Surgery: Yes (back surgery x2) - Anesthesia Hx Anesthesia: Yes Hx Anesthesia Reactions: No Hx Malignant Hyperthermia: No - Suicidal Assessment Feels Threatened In Home Enviroment: No Family/Social History - Physician Review Nursing Documentation Reviewed: Yes Family/Social History: No Known Family HX Smoking Status: Heavy Smoker > 10 Cigarettes Daily Hx Alcohol Use: Yes Frequency of alcohol use: Daily Hx Substance Use: No (denies) Hx Substance Use Treatment: No Allergies/Home Meds Allergies/Adverse Reactions: Allergies Unobtainable Allergy (Verified 12/26/17 18:16) Home Medications: Home Meds Medication Instructions Recorded Confirmed Unobtainable 07/11/17 12/26/17 Review of Systems - Physician Review All systems were reviewed & negative as marked: Yes - Review of Systems Constitutional: absent: Fevers, Night Sweats Respiratory: absent: SOB Cardiovascular: absent: Chest Pain Gastrointestinal: absent: Diarrhea, Nausea, Vomiting Genitourinary Male: absent: Urinary Output Changes Musculoskeletal: absent: Back Pain, Neck Pain Neurological: absent: Headache, Dizziness Physical Exam Vital Signs Reviewed: Yes Vital Signs Temp Pulse Resp BP Pulse Ox 12/26/17 18:04 98.6 F 77 10 L 77/63 L 91 L Temperature: Afebrile Blood Pressure: Hypotensive Pulse: Regular Respiratory Rate: Apneic Appearance: Positive for: Well-Appearing, Non-Toxic, Comfortable Pain Distress: None Mental Status: Positive for: Alert and Oriented X 3, Agitated - Systems Exam Head: Present: Atraumatic, Normocephalic Pupils: Present: PERRL Extroacular Muscles: Present: EOMI Conjunctiva: Present: Normal Mouth: Present: Dry. No: Moist Mucous Membranes Neck: Present: Normal Range of Motion Respiratory/Chest: Present: Wheezes (Bilateral Expiratory Wheezes), Rhonchi Cardiovascular: Present: Regular Rate and Rhythm, Normal S1, S2. No: Murmurs Abdomen: No: Tenderness, Distention, Peritoneal Signs Back: Present: Normal Inspection Upper Extremity: Present: Normal Inspection. No: Cyanosis, Edema Lower Extremity: Present: Normal Inspection. No: Edema Neurological: Present: GCS=15, CN II-XII Intact, Speech Normal Skin: Present: Warm, Dry, Normal Color. No: Rashes Psychiatric: Present: Alert, Oriented x 3, Normal Insight, Normal Concentration, Anxious, Agitated Medical Decision Making ED Course and Treatment: 12/26/17 20:07 Impression: 57 year old male presents by EMS for alcohol intoxication, with wheezing. Plan: -- Labs -- EKG -- Chest X-ray -- Banana bag IV -- NS bolus IV -- Solumedrol -- Rocephin -- Zythromax -- Reassess and disposition Prior Visits: Notes and results from previous visits were reviewed. Progress Notes: Chest X-ray: +consolidation to the RLL. EKG : NSR at 84 bpm, no acute ST changes, as read by PA. Labs reviewed : wbc 8.5, trop (-), bnp (-), etoh 311. XR reviewed, +pneumonia noted, VBG, blood cx, rocephin 1 g IV and zithromax 500 mg IV ordered. VBG : lactate 2.8. Code sepsis called. Another NS bolus ordered IV. VS : P 80 BP 103/61 R 18 O2sat 90%RA. On re-evaluation, patient is awake, alert, oriented x3 in no acute distress, speaking in full sentences, is calm and cooperative. Reports no CP or shortness of breath. Diagnostic results d/w the patient. Advised that he will need to be admitted to the hospital for pneumonia, which he consents to. Case d/w director medical affairs and Dr. Junior, agree with plan to admit under the hospitalist service. - Lab Interpretations Lab Results: 12/26/17 18:19 12/26/17 18:19 Lab Results 12/26/17 18:19: Alcohol, Quantitative 311 H* 12/26/17 18:19: Sodium 138, Potassium 4.1, Chloride 99, Carbon Dioxide 28, Anion Gap 15, BUN 17, Creatinine 1.0, Est GFR ( Amer) > 60, Est GFR (Non-Af Amer) > 60, Random Glucose 102, Calcium 8.8, Magnesium 2.2, Total Bilirubin 0.3, AST 37, ALT 24, Alkaline Phosphatase 66, Troponin I < 0.01, NT-Pro-B Natriuret Pep 151, Total Protein 7.0, Albumin 3.8, Globulin 3.2, Albumin/Globulin Ratio 1.2 12/26/17 18:19: WBC 8.5, RBC 4.95, Hgb 14.5, Hct 44.7, MCV 90.3 D, MCH 29.3, MCHC 32.4, RDW 14.1, Plt Count 248, MPV 10.0, Gran % 49.6 L, Lymph % (Auto) 34.1, [place] % (Auto) 8.3 H, Eos % (Auto) 7.2 H, Baso % (Auto) 0.8, Gran # 4.20, Lymph # (Auto) 2.9, [place] # (Auto) 0.7 H, Eos # (Auto) 0.6, Baso # (Auto) 0.07 - RAD Interpretation Radiology Orders: 12/26/17 18:20 CHEST PORTABLE [RAD] Stat - Medication Orders Current Medication Orders: Folic Acid 1 mg/ Thiamine HCl 100 mg/ Multivitamins/Vitamin C 10 ml/ Dextrose 1,011.2 mls @ 500 mls/hr IV ONCE ONE Stop: 12/26/17 20:20 Ceftriaxone Sodium (Rocephin 1 Gram Ivpb) 1 gm in 100 mls @ 200 mls/hr IVPB STAT STA; Protocol Stop: 12/26/17 20:20 Azithromycin (Zithromax 500mg In Ns) 500 mg in 250 mls @ 167 mls/hr IVPB STAT STA; Protocol Stop: 12/26/17 21:21 Discontinued Medications Albuterol/Ipratropium (Duoneb 3 Mg/0.5 Mg (3 Ml) Ud) 3 ml IH Q15M EVERARDO Stop: 12/26/17 18:46 Last Admin: 12/26/17 18:34 Dose: 3 ml Folic Acid 1 mg/ Thiamine HCl 100 mg/ Multivitamins/Vitamin C 10 ml/ Dextrose 1,011.2 mls @ 1,000 mls/hr IV ONCE ONE Stop: 12/26/17 19:19 Sodium Chloride (Sodium Chloride 0.9%) 1,000 mls @ 1,000 mls/hr IV .Q1H STA Stop: 12/26/17 19:25 Last Admin: 12/26/17 18:35 Dose: 1,000 mls/hr eMAR Start Stop Document 12/26/17 18:35 [facility] (Rec: 12/26/17 18:35 [facility] [id number]) Intravenous Solution Start Date 12/26/17 Start Time 18:35 End Date 12/26/17 End time 19:35 Total Infusion Time 60 Methylprednisolone (Solu-Medrol) 125 mg IVP ONCE ONE Stop: 12/26/17 18:27 Last Admin: 12/26/17 18:34 Dose: 125 mg IVP Administration Document 12/26/17 18:34 [facility] (Rec: 12/26/17 18:34 [facility] [id number]) Charges for Administration # of IVP Administrations 1 - PA / [employer]YPH[employer] / Resident Statement MD/DO has reviewed & agrees with the documentation as recorded. - Scribe Statement The provider has reviewed the documentation as recorded by the Yesiibe Mina Wilkins Provider Scribe Attestation: All medical record entries made by the Scribe were at my direction and personally dictated by me. I have reviewed the chart and agree that the record accurately reflects my personal performance of the history, physical exam, medical decision making, and the department course for this patient. I have also personally directed, reviewed, and agree with the discharge instructions and disposition. Disposition/Present on Arrival - Present on Arrival Any Indicators Present on Arrival: No History of DVT/PE: No History of Uncontrolled Diabetes: No Urinary Catheter: No History of Decub. Ulcer: No History Surgical Site Infection Following: None - Disposition Have Diagnosis and Disposition been Completed?: Yes Diagnosis: Pneumonia, Sepsis, Alcohol intoxication Disposition: HOSPITALIZED Disposition Time: 21:00 Patient Plan: Admission Patient Problems: Current Active Problems Problem Status Onset Pneumonia Acute Sepsis Acute Alcohol intoxication Acute Condition: STABLE Discharge Instructions (ExitCare): Sepsis (ED) Forms: [employer] Connect (Bulgarian)
[2017-12-26 20:28] LABS: VENOUS BLOOD GAS BASE EXCESS -4.2 mmol/L (0.0-2.0); VENOUS BLOOD GAS PO2 58 mm/Hg (30-55); VENOUS BLOOD PH 7.25 (7.32-7.43)
[2017-12-26] MEDS ORDERED: Albuterol-Ipratrop 3 mg / 0.5 (3 ml) UD IH PRN (21:41)
--- NOTE | 2017-12-26 22:23 | CP.PCM.HP ---
<Blas Barraza - Last Filed: 12/27/17 00:14> History of Present Illness - History of Present Illness History of Present Illness: Blas Barraza PGY1 History and Physical for Dr Junior Pt is a 57 yo male with a PMH of alcohol abuse, who presents to the emergency department via EMS for public intoxication. Pt reports cough for the past 3 days with associated chest pain only while coughing. Pt denies sick contacts, fever or chills. Pt states the cough is dry and denies any phlegm production. Pt states he is a smoker. Pt states he was drinking alcohol prior to arrival. Patient also has some audible wheezing. A 12 point ROS was obtained and added to the HPI where appropriate. PMH: DM, depression, HTN, CKD, alcohol abuse and drug abuse PSH: Back surgery, spinal canal rods SH: alcohol use, denies illicit substance use, light smoker, lives in [place] Allergies: denies Present on Admission - Present on Admission Any Indicators Present on Admission: No Review of Systems - Review of Systems Review of Systems: a 12 point ROS was obtained and added to the HPI where appropriate Past Patient History - Infectious Disease Hx of Infectious Diseases: None - Tetanus Immunizations Tetanus Immunization: Unknown - Past Medical History & Family History Past Medical History?: Yes - Past Social History Smoking Status: Heavy Smoker > 10 Cigarettes Daily - CARDIAC Hx Cardiac Disorders: No - PULMONARY Hx Respiratory Disorders: No - NEUROLOGICAL Hx Neurological Disorder: No - HEENT Hx HEENT Problems: No - RENAL Hx Chronic Kidney Disease: No - ENDOCRINE/METABOLIC Hx Endocrine Disorders: Yes Hx Diabetes Mellitus Type 2: Yes - HEMATOLOGICAL/ONCOLOGICAL Hx Blood Disorders: No - INTEGUMENTARY Hx Dermatological Problems: No - MUSCULOSKELETAL/RHEUMATOLOGICAL Hx Musculoskeletal Disorders: Yes Hx Falls: Yes - GASTROINTESTINAL Hx Gastrointestinal Disorders: No - GENITOURINARY/GYNECOLOGICAL Hx Genitourinary Disorders: No - PSYCHIATRIC Hx Psychophysiologic Disorder: No Hx Substance Use: No (denies) - SURGICAL HISTORY Hx Orthopedic Surgery: Yes (back surgery x2) - ANESTHESIA Hx Anesthesia: Yes Hx Anesthesia Reactions: No Hx Malignant Hyperthermia: No Meds Allergies/Adverse Reactions: Allergies Allergy/AdvReac Type Severity Reaction Status Date / Time Unobtainable Allergy Verified 12/26/17 18:16 Physical Exam - Head Exam Additional comments: pt has scrape on the right side of his forehead - Eye Exam Eye Exam: EOMI - ENT Exam ENT Exam: Mucous Membranes Moist - Neck Exam Neck exam: Positive for: Full Rom - Respiratory Exam Respiratory Exam: Chest Wall Tenderness, Wheezes, NORMAL BREATHING PATTERN. absent: Accessory Muscle Use, Respiratory Distress - Cardiovascular Exam Cardiovascular Exam: RRR, +S1, +S2. absent: Diastolic murmur, Systolic Murmur - GI/Abdominal Exam GI & Abdominal Exam: Normal Bowel Sounds, Soft. absent: Tenderness - Extremities Exam Extremities exam: Positive for: full ROM. Negative for: calf tenderness, pedal edema - Neurological Exam Neurological exam: Alert, Oriented x3 - Psychiatric Exam Psychiatric exam: Normal Affect, Normal Mood - Skin Skin Exam: Dry, Intact, Normal Color, Warm Results - Vital Signs Recent Vital Signs: Last Vital Signs Temp 98.6 F 12/26/17 18:04 Pulse 80 12/26/17 19:15 Resp 18 12/26/17 19:15 BP 103/61 12/26/17 19:15 Pulse Ox 90 L 12/26/17 19:15 - Labs Result Diagrams: 12/26/17 18:19 12/26/17 18:19 Labs: Laboratory Results - last 24 hr 12/26/17 12/26/17 12/26/17 18:19 18:19 18:19 WBC 8.5 RBC 4.95 Hgb 14.5 Hct 44.7 MCV 90.3 D MCH 29.3 MCHC 32.4 RDW 14.1 Plt Count 248 MPV 10.0 Gran % 49.6 L Lymph % (Auto) 34.1 [place] % (Auto) 8.3 H Eos % (Auto) 7.2 H Baso % (Auto) 0.8 Gran # 4.20 Lymph # (Auto) 2.9 [place] # (Auto) 0.7 H Eos # (Auto) 0.6 Baso # (Auto) 0.07 pO2 VBG pH VBG pCO2 VBG HCO3 VBG Total CO2 VBG O2 Sat (Calc) VBG Base Excess VBG Potassium Glucose Lactate FiO2 Sodium 138 Potassium 4.1 Chloride 99 Carbon Dioxide 28 Anion Gap 15 BUN 17 Creatinine 1.0 Est GFR ( Amer) > 60 Est GFR (Non-Af Amer) > 60 Random Glucose 102 Calcium 8.8 Magnesium 2.2 Total Bilirubin 0.3 AST 37 ALT 24 Alkaline Phosphatase 66 Troponin I < 0.01 NT-Pro-B Natriuret Pep 151 Total Protein 7.0 Albumin 3.8 Globulin 3.2 Albumin/Globulin Ratio 1.2 Venous Blood Potassium Alcohol, Quantitative 311 H* 12/26/17 20:15 WBC RBC Hgb Hct MCV MCH MCHC RDW Plt Count MPV Gran % Lymph % (Auto) [place] % (Auto) Eos % (Auto) Baso % (Auto) Gran # Lymph # (Auto) [place] # (Auto) Eos # (Auto) Baso # (Auto) pO2 58 H VBG pH 7.25 L VBG pCO2 54.0 VBG HCO3 23.7 VBG Total CO2 25.4 VBG O2 Sat (Calc) 90.2 H VBG Base Excess -4.2 L VBG Potassium 3.5 L Glucose 170 H Lactate 2.8 H FiO2 21.0 Sodium 136.0 Potassium Chloride 101.0 Carbon Dioxide Anion Gap BUN Creatinine Est GFR ( Amer) Est GFR (Non-Af Amer) Random Glucose Calcium Magnesium Total Bilirubin AST ALT Alkaline Phosphatase Troponin I NT-Pro-B Natriuret Pep Total Protein Albumin Globulin Albumin/Globulin Ratio Venous Blood Potassium 3.5 L Alcohol, Quantitative Assessment & Plan - Assessment and Plan (Free Text) Assessment: Pt is a 57 yo male with a PMH of alcohol abuse, who presents to the emergency department via EMS for public intoxication. Pt reports cough for the past 3 days with associated chest pain only while coughing. Plan: ETOH intoxication - monitor for signs of withdrawal - folic acid - CI - fall protocol - ethanol level 311 on admission PNA - ?consolidation on CXR - code sepsis called - elevated lactate - sputum cultures - blood cultures - procal - ceftriaxone - azithromycin - supplemental O2 - duonebs PRN Hx of DM - blood glucose in normal range at this time, will add ISS if needed in the future Ppx - SCD - protonix Pt seen, examined, assessment and plan Discussed with Dr Vernon Barraza PGY1 Internal Medicine Resident - Date & Time Date: 12/26/17 Time: 22:28 <Colton Junior - Last Filed: 12/27/17 02:40> Results - Vital Signs Recent Vital Signs: Last Vital Signs Temp 98.6 F 12/26/17 18:04 Pulse 91 H 12/27/17 00:15 Resp 18 12/27/17 00:15 BP 96/82 L 12/27/17 00:15 Pulse Ox 92 L 12/27/17 00:15 - Labs Result Diagrams: 12/26/17 18:19 12/26/17 18:19 Labs: Laboratory Results - last 24 hr 12/26/17 12/26/17 12/26/17 18:19 18:19 18:19 WBC 8.5 RBC 4.95 Hgb 14.5 Hct 44.7 MCV 90.3 D MCH 29.3 MCHC 32.4 RDW 14.1 Plt Count 248 MPV 10.0 Gran % 49.6 L Lymph % (Auto) 34.1 [place] % (Auto) 8.3 H Eos % (Auto) 7.2 H Baso % (Auto) 0.8 Gran # 4.20 Lymph # (Auto) 2.9 [place] # (Auto) 0.7 H Eos # (Auto) 0.6 Baso # (Auto) 0.07 pO2 VBG pH VBG pCO2 VBG HCO3 VBG Total CO2 VBG O2 Sat (Calc) VBG Base Excess VBG Potassium Glucose Lactate FiO2 Sodium 138 Potassium 4.1 Chloride 99 Carbon Dioxide 28 Anion Gap 15 BUN 17 Creatinine 1.0 Est GFR ( Amer) > 60 Est GFR (Non-Af Amer) > 60 Random Glucose 102 Calcium 8.8 Magnesium 2.2 Total Bilirubin 0.3 AST 37 ALT 24 Alkaline Phosphatase 66 Troponin I < 0.01 NT-Pro-B Natriuret Pep 151 Total Protein 7.0 Albumin 3.8 Globulin 3.2 Albumin/Globulin Ratio 1.2 Venous Blood Potassium Alcohol, Quantitative 311 H* 12/26/17 12/26/17 20:15 23:25 WBC RBC Hgb Hct MCV MCH MCHC RDW Plt Count MPV Gran % Lymph % (Auto) [place] % (Auto) Eos % (Auto) Baso % (Auto) Gran # Lymph # (Auto) [place] # (Auto) Eos # (Auto) Baso # (Auto) pO2 58 H 89 H VBG pH 7.25 L 7.26 L VBG pCO2 54.0 47.0 VBG HCO3 23.7 21.1 VBG Total CO2 25.4 22.5 VBG O2 Sat (Calc) 90.2 H 97.4 H VBG Base Excess -4.2 L -6.1 L VBG Potassium 3.5 L 3.8 Glucose 170 H 178 H Lactate 2.8 H 3.1 H FiO2 21.0 21.0 Sodium 136.0 140.0 Potassium Chloride 101.0 108.0 H Carbon Dioxide Anion Gap BUN Creatinine Est GFR ( Amer) Est GFR (Non-Af Amer) Random Glucose Calcium Magnesium Total Bilirubin AST ALT Alkaline Phosphatase Troponin I NT-Pro-B Natriuret Pep Total Protein Albumin Globulin Albumin/Globulin Ratio Venous Blood Potassium 3.5 L 3.8 Alcohol, Quantitative Attending/Attestation - Attestation I have personally seen and examined this patient.: Yes I have fully participated in the care of the patient.: Yes I have reviewed all pertinent clinical information: Yes Notes (Text): 57 y/o M with PMH of EtOH abuse, brought in via EMS for EtOH intoxication. Last drink was a few hours prior to ED presentation. Pt complains of 3 day history of cough with left sided pleuritic chest pain. Denies any SOB, fever or chills. Pt was borderline hypotensive, with mildly elevated LA, code sepsis was activated in the ED. PE positive for diffuse rales, + tremors and tachycardia Pt was noted to be saturating at 90% on RA ? Left sided Pneumonia EtOH abuse EtOH withdrawal Bolus 30cc/kg/hr of NS Trend LA Start pt on Zithromax and rocephin Send sputum culture Supplemental oxygen to maintain SPO2 >92% Initiate CIWA protocol fall and seizure precautions Start pt on banana bag Monitor and replace electrolytes 12/27/17 02:33
[2017-12-26 23:28] LABS: VENOUS BLOOD GAS BASE EXCESS -6.1 mmol/L (0.0-2.0); VENOUS BLOOD GAS PO2 89 mm/Hg (30-55); VENOUS BLOOD PH 7.26 (7.32-7.43)
--- NOTE | 2017-12-27 00:07 | PCM.SEPTIC ---
Sepsis Progress Note - Reassessment Type Date of Evaluation: 12/27/17 Time of Evaluation: 00:02 Reassessment Type: Non-invasive reassessment - Non Invasive Reassessment Were the most recent vital sign reviewed: Yes Vital Sign (Latest): Temp Pulse Resp BP Pulse Ox 98.6 F 91 H 18 96/78 L 90 L 12/26/17 18:04 12/26/17 23:40 12/26/17 23:40 12/26/17 23:40 12/26/17 23:40 Cardiovascular: Yes: Regular Rate, Rhythm. No: Murmur Respiratory: Yes: Normal Breath Sounds. No: Accessory Muscle Use Capillary Refill: Normal (Less than 2 sec) Pulses: Normal Radial, Normal Dorsalis Pedis, Normal Posterior Tibialis Skin: Normal Color, Warm, Dry - Invasive Reassessment (complete 2 of 4) Was a Central Venous Pressure Measurement obtained within 6 Hours after the presentation of septic shock: No Was a central venous oxygen measurement obtained within 6 hours after the presentation of septic shock: No Was a bedside cardiovascular ultrasound performed within 6 hours after the presentation of septic shock: No Fluid Challenge performed: Yes
[2017-12-27 03:06] LABS: VENOUS BLOOD GAS BASE EXCESS -3.3 mmol/L (0.0-2.0); VENOUS BLOOD GAS PO2 32 mm/Hg (30-55); VENOUS BLOOD PH 7.28 (7.32-7.43)
[2017-12-27] MEDS ORDERED: Pantoprazole 40 mg EC Tab PO SCH (06:00)
[2017-12-27 07:02] VITALS: BP 124/85; PULSE 60; RESP 20; TEMP 97.3; O2SAT 94
[2017-12-27 07:21] LABS: GRAN # 2.61 (1.4-6.5); GRAN % 79.6 % (50.0-68.0); HEMOGLOBIN 14.3 g/dL (14.0-18.0); LYMPH # 0.7 (1.2-3.4); LYMPH % 20.1 % (22.0-35.0); MEAN CORPUSCULAR HEMOGLOBIN 29.2 pg (25.0-35.0); MEAN CORPUSCULAR HGB CONC 33.2 g/dl (31.0-37.0); MEAN PLATELET VOLUME 9.6 fl (7.0-11.0); MONO % 0.3 % (1.0-6.0); RBC 4.9 10^6/uL (3.5-6.1); WHITE BLOOD COUNT 3.3 10^3/uL (4.5-11.0)
[2017-12-27 07:34] LABS: ALB/GLOB RATIO 1.2 (1.1-1.8); ALBUMIN 3.8 g/dL (3.0-4.8); ALT/SGPT 24 U/L (7-56); AST/SGOT 20 U/L (17-59); BLOOD UREA NITROGEN 10 mg/dL (7-21); CALCIUM 8.9 mg/dL (8.4-10.5); GFR NON-AFRICAN AMERICAN > 60
[2017-12-27 08:25] LABS: URINE BILIRUBIN NEGATIVE (NEGATIVE); URINE BLOOD NEGATIVE (NEGATIVE); URINE GLUCOSE (UA) NEGATIVE (NEGATIVE); URINE LEUKOCYTE ESTERASE NEGATIVE Leu/uL (NEGATIVE); URINE PROTEIN NEGATIVE mg/dL (<30 mg/dL); URINE UROBILINOGEN 0.2 E.U./dL (<1 E.U./dL)
[2017-12-27 08:46] LABS: VENOUS BLOOD GAS BASE EXCESS -1.4 mmol/L (0.0-2.0); VENOUS BLOOD GAS PO2 35 mm/Hg (30-55); VENOUS BLOOD PH 7.29 (7.32-7.43)
[2017-12-27 08:49] LABS: URINE APPEARANCE CLEAR (CLEAR); URINE COLOR YELLOW (YELLOW)
[2017-12-27] MEDS ORDERED: Sodium Chloride 0.9% 1,000 ML IV SCH (09:00)
--- NOTE | 2017-12-27 09:47 | CARD ---
APPROVED REPORT Date of service: 12/26/2017 EKG Measurement Heart [id number] <Conclusion> Normal sinus rhythm Poor R Progression V1-V3.
[2017-12-27] MEDS ORDERED: cefTRIAXone 1 gm 1 GM/100 ML BAG IVPB SCH (10:00)
[2017-12-27] MEDS ORDERED: Azithromycin 500MG/NS 250ml 500 MG/250 ML BAG IVPB SCH (10:00)
--- NOTE | 2017-12-27 11:57 | RAD ---
Date of service: 12/26/2017 HISTORY: Hypotension. COMPARISON: 10/10/2017. FINDINGS: LUNGS: No discrete infiltrates. Pulmonary vascular prominence. PLEURA: No significant pleural effusion identified, no pneumothorax apparent. CARDIOVASCULAR: No atherosclerotic calcification present No radiographic findings to suggest acute or significant cardiovascular disease. OSSEOUS STRUCTURES: No significant abnormalities. VISUALIZED UPPER ABDOMEN: Normal. OTHER FINDINGS: None. IMPRESSION: No active disease. No significant interval change compared to the prior examination(s).
--- NOTE | 2017-12-27 12:03 | CP.PCM.CON ---
History of Present Illness - History of Present Illness History of Present Illness: 57 year old male with PMH of chronic alcohol abuse, significant smoking history, HTN, chronic renal failure, history of depression, came in to [facility] [place] after he was brought in by EMS after being seen publicly intoxicated. The patient was also noted to have chronic cough, which has slightly worsened in the past 3 days with whitish sputum. He denies fever or chills, no sore throat, no rhinorrhea, no chest pain or palpitations, no nausea or vomiting, no headache or dizziness, no diarrhea, no dysuria, denies known sick contacts, denies recent travel outside of [place] in the past 3 months. Infectious Diseases consult is requested to further evaluate and manage. Review of Systems - Review of Systems All systems: reviewed and no additional remarkable complaints except (as per HPI) Past Patient History - Infectious Disease Hx of Infectious Diseases: None - Tetanus Immunizations Tetanus Immunization: Unknown - Past Medical History & Family History Past Medical History?: Yes - Past Social History Smoking Status: Unknown If Ever Smoked - CARDIAC Hx Cardiac Disorders: No - PULMONARY Hx Respiratory Disorders: No - NEUROLOGICAL Hx Neurological Disorder: No - HEENT Hx HEENT Problems: No - RENAL Hx Chronic Kidney Disease: No - ENDOCRINE/METABOLIC Hx Diabetes Mellitus Type 2: Yes - HEMATOLOGICAL/ONCOLOGICAL Hx Blood Disorders: No - INTEGUMENTARY Hx Dermatological Problems: No - MUSCULOSKELETAL/RHEUMATOLOGICAL Hx Falls: Yes - GASTROINTESTINAL Hx Gastrointestinal Disorders: No - GENITOURINARY/GYNECOLOGICAL Hx Genitourinary Disorders: No - PSYCHIATRIC Hx Psychophysiologic Disorder: No Hx Substance Use: No (denies) - SURGICAL HISTORY Hx Orthopedic Surgery: Yes (back surgery x2) - ANESTHESIA Hx Anesthesia: Yes Hx Anesthesia Reactions: No Hx Malignant Hyperthermia: No Meds Home Medications: Home Medication List Medication Instructions Recorded Confirmed Type Amoxicillin/Clavulanate [Augmentin 1 tab PO BID #10 tab 12/27/17 Rx 875 MG-125 MG] Allergies/Adverse Reactions: Allergies Allergy/AdvReac Type Severity Reaction Status Date / Time Unobtainable Allergy Verified 12/26/17 18:16 - Medications Medications: Current Medications Folic Acid (Folic Acid) 1 mg PO DAILY EVERARDO Ceftriaxone Sodium (Rocephin 1 Gram Ivpb) 1 gm in 100 mls @ 100 mls/hr IVPB DAILY EVERARDO; Protocol Azithromycin (Zithromax 500mg In Ns) 500 mg in 250 mls @ 167 mls/hr IVPB DAILY EVERARDO; Protocol Lorazepam (Ativan) 2 mg IVP Q4H PRN; Protocol PRN Reason: Symptoms of alcohol withdrawl Pantoprazole Sodium (Protonix Ec Tab) 40 mg PO 0600 COUNT INCLUDES THE [facility] Last Admin: 12/27/17 05:59 Dose: 40 mg Thiamine HCl (Vitamin B1 Tab) 100 mg PO DAILY COUNT INCLUDES THE [facility] Physical Exam - Constitutional Appears: Non-toxic, No Acute Distress, Chronically Ill - Head Exam Head Exam: NORMAL INSPECTION - Neck Exam Neck exam: Negative for: Meningismus - Respiratory Exam Respiratory Exam: Decreased Breath Sounds, Rales - Cardiovascular Exam Cardiovascular Exam: +S1, +S2 - GI/Abdominal Exam GI & Abdominal Exam: Soft. absent: Tenderness Results - Vital Signs Recent Vital Signs: Last Vital Signs Temp 97.3 F L 12/27/17 06:00 Pulse 60 12/27/17 06:00 Resp 20 12/27/17 06:00 BP 124/85 12/27/17 06:00 Pulse Ox 94 L 12/27/17 06:00 - Labs Result Diagrams: 12/27/17 06:50 12/27/17 06:50 Labs: Laboratory Results - last 24 hr 12/26/17 12/26/17 12/26/17 18:19 18:19 18:19 WBC 8.5 RBC 4.95 Hgb 14.5 Hct 44.7 MCV 90.3 D MCH 29.3 MCHC 32.4 RDW 14.1 Plt Count 248 MPV 10.0 Gran % 49.6 L Lymph % (Auto) 34.1 Crowley % (Auto) 8.3 H Eos % (Auto) 7.2 H Baso % (Auto) 0.8 Gran # 4.20 Lymph # (Auto) 2.9 Crowley # (Auto) 0.7 H Eos # (Auto) 0.6 Baso # (Auto) 0.07 pO2 VBG pH VBG pCO2 VBG HCO3 VBG Total CO2 VBG O2 Sat (Calc) VBG Base Excess VBG Potassium Glucose Lactate FiO2 Sodium 138 Potassium 4.1 Chloride 99 Carbon Dioxide 28 Anion Gap 15 BUN 17 Creatinine 1.0 Est GFR ( Amer) > 60 Est GFR (Non-Af Amer) > 60 POC Glucose (mg/dL) Random Glucose 102 Lactic Acid Calcium 8.8 Magnesium 2.2 Total Bilirubin 0.3 AST 37 ALT 24 Alkaline Phosphatase 66 Troponin I < 0.01 NT-Pro-B Natriuret Pep 151 Total Protein 7.0 Albumin 3.8 Globulin 3.2 Albumin/Globulin Ratio 1.2 Venous Blood Potassium Alcohol, Quantitative 311 H* 12/26/17 12/26/17 12/27/17 20:15 23:25 00:12 WBC RBC Hgb Hct MCV MCH MCHC RDW Plt Count MPV Gran % Lymph % (Auto) Crowley % (Auto) Eos % (Auto) Baso % (Auto) Gran # Lymph # (Auto) Crowley # (Auto) Eos # (Auto) Baso # (Auto) pO2 58 H 89 H VBG pH 7.25 L 7.26 L VBG pCO2 54.0 47.0 VBG HCO3 23.7 21.1 VBG Total CO2 25.4 22.5 VBG O2 Sat (Calc) 90.2 H 97.4 H VBG Base Excess -4.2 L -6.1 L VBG Potassium 3.5 L 3.8 Glucose 170 H 178 H Lactate 2.8 H 3.1 H FiO2 21.0 21.0 Sodium 136.0 140.0 Potassium Chloride 101.0 108.0 H Carbon Dioxide Anion Gap BUN Creatinine Est GFR ( Amer) Est GFR (Non-Af Amer) POC Glucose (mg/dL) 164 H Random Glucose Lactic Acid Calcium Magnesium Total Bilirubin AST ALT Alkaline Phosphatase Troponin I NT-Pro-B Natriuret Pep Total Protein Albumin Globulin Albumin/Globulin Ratio Venous Blood Potassium 3.5 L 3.8 Alcohol, Quantitative 12/27/17 12/27/17 12/27/17 02:50 02:50 06:50 WBC 3.3 L D RBC 4.90 Hgb 14.3 Hct 43.1 MCV 88.0 MCH 29.2 MCHC 33.2 RDW 14.0 Plt Count 231 MPV 9.6 Gran % 79.6 H Lymph % (Auto) 20.1 L Crowley % (Auto) 0.3 L Eos % (Auto) 0.0 L Baso % (Auto) 0.0 Gran # 2.61 Lymph # (Auto) 0.7 L Crowley # (Auto) 0.0 L Eos # (Auto) 0.0 Baso # (Auto) 0.00 pO2 32 VBG pH 7.28 L VBG pCO2 51.0 VBG HCO3 24.0 VBG Total CO2 25.6 VBG O2 Sat (Calc) 64.8 VBG Base Excess -3.3 L VBG Potassium 4.5 Glucose 192 H Lactate 3.9 H FiO2 21.0 Sodium 141.0 Potassium Chloride 106.0 Carbon Dioxide Anion Gap BUN Creatinine Est GFR ( Amer) Est GFR (Non-Af Amer) POC Glucose (mg/dL) Random Glucose Lactic Acid 2.7 H Calcium Magnesium Total Bilirubin AST ALT Alkaline Phosphatase Troponin I NT-Pro-B Natriuret Pep Total Protein Albumin Globulin Albumin/Globulin Ratio Venous Blood Potassium 4.5 Alcohol, Quantitative 12/27/17 06:50 WBC RBC Hgb Hct MCV MCH MCHC RDW Plt Count MPV Gran % Lymph % (Auto) Crowley % (Auto) Eos % (Auto) Baso % (Auto) Gran # Lymph # (Auto) Crowley # (Auto) Eos # (Auto) Baso # (Auto) pO2 VBG pH VBG pCO2 VBG HCO3 VBG Total CO2 VBG O2 Sat (Calc) VBG Base Excess VBG Potassium Glucose Lactate FiO2 Sodium 141 Potassium 4.8 Chloride 107 Carbon Dioxide 24 Anion Gap 14 BUN 10 Creatinine 0.7 L Est GFR ( Amer) > 60 Est GFR (Non-Af Amer) > 60 POC Glucose (mg/dL) Random Glucose 162 H Lactic Acid Calcium 8.9 Magnesium Total Bilirubin 0.3 AST 20 ALT 24 Alkaline Phosphatase 61 Troponin I NT-Pro-B Natriuret Pep Total Protein 7.1 Albumin 3.8 Globulin 3.3 Albumin/Globulin Ratio 1.2 Venous Blood Potassium Alcohol, Quantitative Assessment & Plan - Assessment and Plan (Free Text) Plan: Assessment Consider acute bronchitis chronic alcohol abuse significant smoking history HTN chronic renal failure history of depression Plan patient has been started Rocephin and Zithromax and will follow up blood cx, PCT; reviewed CXR which does not show infiltrates will monitor clinically will get HIV test
--- NOTE | 2017-12-27 13:54 | CP.PCM.DIS ---
<Bjorn Diaz - Last Filed: 12/27/17 16:21> Provider - Provider Date of Admission: 12/26/17 21:00 Attending physician: Cris Del Toro MD Time Spent in preparation of Discharge (in minutes): 40 Hospital Course - Lab Results Lab Results: Most Recent Lab Values WBC 3.3 10^3/uL (4.5-11.0) L D 12/27/17 06:50 RBC 4.90 10^6/uL (3.5-6.1) 12/27/17 06:50 Hgb 14.3 g/dL (14.0-18.0) 12/27/17 06:50 Hct 43.1 % (42.0-52.0) 12/27/17 06:50 MCV 88.0 fl (80.0-105.0) 12/27/17 06:50 MCH 29.2 pg (25.0-35.0) 12/27/17 06:50 MCHC 33.2 g/dl (31.0-37.0) 12/27/17 06:50 RDW 14.0 % (11.5-14.5) 12/27/17 06:50 Plt Count 231 10^3/uL (120.0-450.0) 12/27/17 06:50 MPV 9.6 fl (7.0-11.0) 12/27/17 06:50 Gran % 79.6 % (50.0-68.0) H 12/27/17 06:50 Lymph % (Auto) 20.1 % (22.0-35.0) L 12/27/17 06:50 Maury % (Auto) 0.3 % (1.0-6.0) L 12/27/17 06:50 Eos % (Auto) 0.0 % (1.5-5.0) L 12/27/17 06:50 Baso % (Auto) 0.0 % (0.0-3.0) 12/27/17 06:50 Gran # 2.61 (1.4-6.5) 12/27/17 06:50 Lymph # (Auto) 0.7 (1.2-3.4) L 12/27/17 06:50 Maury # (Auto) 0.0 (0.1-0.6) L 12/27/17 06:50 Eos # (Auto) 0.0 (0.0-0.7) 12/27/17 06:50 Baso # (Auto) 0.00 K/mm3 (0.0-2.0) 12/27/17 06:50 pO2 35 mm/Hg (30-55) 12/27/17 08:30 VBG pH 7.29 (7.32-7.43) L 12/27/17 08:30 VBG pCO2 54.0 (40-60) 12/27/17 08:30 VBG HCO3 26.0 mmol/l (21-28) 12/27/17 08:30 VBG Total CO2 27.7 mmol.L (22-28) 12/27/17 08:30 VBG O2 Sat (Calc) 69.7 % (40-65) H 12/27/17 08:30 VBG Base Excess -1.4 mmol/L (0.0-2.0) L 12/27/17 08:30 VBG Potassium 4.4 mmol/L (3.6-5.2) 12/27/17 08:30 Sodium 142.0 mmol/L (132-148) 12/27/17 08:30 Chloride 106.0 mmol/L (98-107) 12/27/17 08:30 Glucose 133 mg/dl (75-110) H 12/27/17 08:30 Lactate 4.2 mmol/L (0.7-2.1) H* 12/27/17 08:30 FiO2 21.0 % 12/27/17 08:30 Sodium 141 mmol/L (132-148) 12/27/17 06:50 Potassium 4.8 mmol/L (3.6-5.0) 12/27/17 06:50 Chloride 107 mmol/L (98-107) 12/27/17 06:50 Carbon Dioxide 24 mmol/L (21-33) 12/27/17 06:50 Anion Gap 14 (10-20) 12/27/17 06:50 BUN 10 mg/dL (7-21) 12/27/17 06:50 Creatinine 0.7 mg/dl (0.8-1.5) L 12/27/17 06:50 Est GFR ( Amer) > 60 12/27/17 06:50 Est GFR (Non-Af Amer) > 60 12/27/17 06:50 POC Glucose (mg/dL) 135 mg/dL (65-110) H 12/27/17 11:22 Random Glucose 162 mg/dL (70-110) H 12/27/17 06:50 Lactic Acid 4.5 mmol/L (0.7-2.1) H* 12/27/17 10:15 Calcium 8.9 mg/dL (8.4-10.5) 12/27/17 06:50 Magnesium 2.2 mg/dL (1.7-2.2) 12/26/17 18:19 Total Bilirubin 0.3 mg/dL (0.2-1.3) 12/27/17 06:50 AST 20 U/L (17-59) 12/27/17 06:50 ALT 24 U/L (7-56) 12/27/17 06:50 Alkaline Phosphatase 61 U/L (38-126) 12/27/17 06:50 Troponin I < 0.01 ng/mL 12/26/17 18:19 NT-Pro-B Natriuret Pep 151 pg/mL (0-450) 12/26/17 18:19 Total Protein 7.1 g/dL (5.8-8.3) 12/27/17 06:50 Albumin 3.8 g/dL (3.0-4.8) 12/27/17 06:50 Globulin 3.3 gm/dL 12/27/17 06:50 Albumin/Globulin Ratio 1.2 (1.1-1.8) 12/27/17 06:50 Venous Blood Potassium 4.4 mmol/L (3.6-5.2) 12/27/17 08:30 Urine Color Yellow (YELLOW) 12/27/17 08:00 Urine Appearance Clear (CLEAR) 12/27/17 08:00 Urine pH 6.0 (4.7-8.0) 12/27/17 08:00 Ur Specific [place] 1.020 (1.005-1.035) 12/27/17 08:00 Urine Protein Negative mg/dL (<30 mg/dL) 12/27/17 08:00 Urine Glucose (UA) Negative mg/dL (NEGATIVE) 12/27/17 08:00 Urine Ketones Negative mg/dL (NEGATIVE) 12/27/17 08:00 Urine Blood Negative (NEGATIVE) 12/27/17 08:00 Urine Nitrate Negative (NEGATIVE) 12/27/17 08:00 Urine Bilirubin Negative (NEGATIVE) 12/27/17 08:00 Urine Urobilinogen 0.2 E.U./dL (<1 E.U./dL) 12/27/17 08:00 Ur Leukocyte Esterase Negative Antony/uL (NEGATIVE) 12/27/17 08:00 Alcohol, Quantitative 311 mg/dL (0-10) H* 12/26/17 18:19 Influenza Typ A,B (EIA) Negative for flu a/b (NEGATIVE) 12/27/17 09:45 - Hospital Course Hospital Course: Pt is a 57 year old male with past medical history of alcohol abuse, who presents to the emergency department via EMS for public intoxication. Patient reports cough for the past 3 days with associated chest pain only while coughing. Patient denies sick contacts, fever or chills. Patient states the cough is dry and denies any phlegm production. Patient states he is a smoker. Topher waterman states he was drinking alcohol prior to arrival. Patient also has some audible wheezing. A 12 point review of systems was obtained and added to the HPI where appropriate. In the ED, chest Xray demonstrated a right lower lobe consolidation. Patient was given rocephin and zithromax x 1, banana bag x1, a bolus of normal saline x1. EKG was normal sinus rhythm at 84 beats per minute with no acute ST segment changes. Labs showed no leukocytosis, negative troponin, and negative BNP. Alcohol serum level was found to be 311. On venous blood gas, lactate was elevated at 2.8. Code sepsis was called. Another bolus of normal saline fluids was given intravenously. Vital signs were as followed: P 80 BP 103/61 R 18 O2sat 90%RA. On re-evaluation, patient was awake, alert, oriented x3 in no acute distress, speaking in full sentences, calm and cooperative. He reported no chest pain or shortness of breath. During the course of admission: ID was consulted for pneumonia and per code sepsis protocol. Patient was kept on Rocephin and Azithromycin. Pancultures were collected. Lactate trended upward at 4.2 on repeat venous blood gas and patient was given more iv fluid. The patient was monitored clinically and was alert and oriented x3, was calm and cooperative, with no tremors or signs of acute distress. The patient did not endorse chest pain, palpitations, shortness of breath, cough, abdominal pain, nausea/vomiting/diarrhea/constipation. During the course of admission, the patient refused further workup and medical management and expressed his wishes to leave the hospital. This action is against medical advice. The decision was made with informed refusal. The patient was told that continued monitoring and treatment was necessary. Explanations of the reasons why were discussed. The risks of leaving were explained to the patient and include, but are not limited to, worsening of known or currently unknown conditions, permanent disability and from undiagnosed or untreated conditions. The patient had the capacity to make the informed decision and understood my explanation of the current medical problem and risks associated with leaving. The patient voluntarily accepts these risks and signed an AMA form documenting our conversation. T The patient was given the opportunity to ask questions and reconsider. The patient was encouraged to return to the ED at any time for further care. He was given a script for Augmentin 1 tab PO twice daily for 5 days. *The following is a summary of hospital course. For further detail, please refer to EMR. - Date & Time of H&P Date of H&P: 12/27/17 Time of H&P: 13:52 Discharge Exam - Head Exam Head Exam: NORMAL INSPECTION - Eye Exam Eye Exam: EOMI, Normal appearance - ENT Exam ENT Exam: Mucous Membranes Moist, Normal Exam - Neck Exam Neck exam: Full Rom, Normal Inspection - Respiratory Exam Respiratory Exam: Clear to PA & Lateral, NORMAL BREATHING PATTERN, UNREMARKABLE. absent: Accessory Muscle Use, Rales, Rhonchi, Wheezes, Respiratory Distress, Stridor - Cardiovascular Exam Cardiovascular Exam: REGULAR RHYTHM, +S1, +S2 - GI/Abdominal Exam GI & Abdominal Exam: Normal Bowel Sounds, Soft, Unremarkable. absent: Distended, Firm, Guarding, Organomegaly, Rebound, Rigid, Tenderness - Extremities Exam Extremities exam: full ROM, normal capillary refill, normal inspection, pedal pulses present - Back Exam Back exam: NORMAL INSPECTION - Neurological Exam Neurological exam: Alert, CN II-XII Intact, Normal Gait, Oriented x3 - Psychiatric Exam Psychiatric exam: Normal Affect, Normal Mood - Skin Skin Exam: Dry, Intact, Normal Color, Warm Discharge Plan - Discharge Medications Prescriptions: Amoxicillin/Clavulanate [Augmentin 875 MG-125 MG] 1 tab PO BID #10 tab - Follow Up Plan Condition: GUARDED Disposition: AGAINST MEDICAL ADVICE Additional Instructions: The patient was monitored clinically and was alert and oriented x3, was calm and cooperative, with no tremors or signs of acute distress. The patient did not endorse chest pain, palpitations, shortness of breath, cough, abdominal pain, nausea/vomiting/diarrhea/constipation. The patient refused further workup and medical management and expressed his wishes to leave the hospital. This action is against medical advice. The decision was made with informed refusal. The patient was told that continued monitoring and treatment was necessary. Explanations of the reasons why were discussed. The risks of leaving were explained to the patient and include, but are not limited to, worsening of known or currently unknown conditions, permanent disability and from undiagnosed or untreated conditions. The patient had the capacity to make the informed decision and understood my explanation of the current medical problem and risks associated with leaving. The patient voluntarily accepts these risks and signed an AMA form documenting our conversation. T The patient was given the opportunity to ask questions and reconsider. The patient was encouraged to return to the ED at any time for further care. <Cris Del Toro - Last Filed: 12/28/17 07:58> Provider - Provider Date of Admission: 12/26/17 21:00 Attending physician: Cris Del Toro MD Hospital Course - Lab Results Lab Results: Micro Results 12/26/17 20:15 Blood Blood Culture - Preliminary NO GROWTH AFTER 24 HOURS 12/26/17 20:00 Blood Blood Culture - Preliminary NO GROWTH AFTER 24 HOURS Most Recent Lab Values WBC 3.3 10^3/uL (4.5-11.0) L D 12/27/17 06:50 RBC 4.90 10^6/uL (3.5-6.1) 12/27/17 06:50 Hgb 14.3 g/dL (14.0-18.0) 12/27/17 06:50 Hct 43.1 % (42.0-52.0) 12/27/17 06:50 MCV 88.0 fl (80.0-105.0) 12/27/17 06:50 MCH 29.2 pg (25.0-35.0) 12/27/17 06:50 MCHC 33.2 g/dl (31.0-37.0) 12/27/17 06:50 RDW 14.0 % (11.5-14.5) 12/27/17 06:50 Plt Count 231 10^3/uL (120.0-450.0) 12/27/17 06:50 MPV 9.6 fl (7.0-11.0) 12/27/17 06:50 Gran % 79.6 % (50.0-68.0) H 12/27/17 06:50 Lymph % (Auto) 20.1 % (22.0-35.0) L 12/27/17 06:50 Maury % (Auto) 0.3 % (1.0-6.0) L 12/27/17 06:50 Eos % (Auto) 0.0 % (1.5-5.0) L 12/27/17 06:50 Baso % (Auto) 0.0 % (0.0-3.0) 12/27/17 06:50 Gran # 2.61 (1.4-6.5) 12/27/17 06:50 Lymph # (Auto) 0.7 (1.2-3.4) L 12/27/17 06:50 Maury # (Auto) 0.0 (0.1-0.6) L 12/27/17 06:50 Eos # (Auto) 0.0 (0.0-0.7) 12/27/17 06:50 Baso # (Auto) 0.00 K/mm3 (0.0-2.0) 12/27/17 06:50 pO2 35 mm/Hg (30-55) 12/27/17 08:30 VBG pH 7.29 (7.32-7.43) L 12/27/17 08:30 VBG pCO2 54.0 (40-60) 12/27/17 08:30 VBG HCO3 26.0 mmol/l (21-28) 12/27/17 08:30 VBG Total CO2 27.7 mmol.L (22-28) 12/27/17 08:30 VBG O2 Sat (Calc) 69.7 % (40-65) H 12/27/17 08:30 VBG Base Excess -1.4 mmol/L (0.0-2.0) L 12/27/17 08:30 VBG Potassium 4.4 mmol/L (3.6-5.2) 12/27/17 08:30 Sodium 142.0 mmol/L (132-148) 12/27/17 08:30 Chloride 106.0 mmol/L (98-107) 12/27/17 08:30 Glucose 133 mg/dl (75-110) H 12/27/17 08:30 Lactate 4.2 mmol/L (0.7-2.1) H* 12/27/17 08:30 FiO2 21.0 % 12/27/17 08:30 Sodium 141 mmol/L (132-148) 12/27/17 06:50 Potassium 4.8 mmol/L (3.6-5.0) 12/27/17 06:50 Chloride 107 mmol/L (98-107) 12/27/17 06:50 Carbon Dioxide 24 mmol/L (21-33) 12/27/17 06:50 Anion Gap 14 (10-20) 12/27/17 06:50 BUN 10 mg/dL (7-21) 12/27/17 06:50 Creatinine 0.7 mg/dl (0.8-1.5) L 12/27/17 06:50 Est GFR ( Amer) > 60 12/27/17 06:50 Est GFR (Non-Af Amer) > 60 12/27/17 06:50 POC Glucose (mg/dL) 135 mg/dL (65-110) H 12/27/17 11:22 Random Glucose 162 mg/dL (70-110) H 12/27/17 06:50 Lactic Acid 4.5 mmol/L (0.7-2.1) H* 12/27/17 10:15 Calcium 8.9 mg/dL (8.4-10.5) 12/27/17 06:50 Magnesium 2.2 mg/dL (1.7-2.2) 12/26/17 18:19 Total Bilirubin 0.3 mg/dL (0.2-1.3) 12/27/17 06:50 AST 20 U/L (17-59) 12/27/17 06:50 ALT 24 U/L (7-56) 12/27/17 06:50 Alkaline Phosphatase 61 U/L (38-126) 12/27/17 06:50 Troponin I < 0.01 ng/mL 12/26/17 18:19 NT-Pro-B Natriuret Pep 151 pg/mL (0-450) 12/26/17 18:19 Total Protein 7.1 g/dL (5.8-8.3) 12/27/17 06:50 Albumin 3.8 g/dL (3.0-4.8) 12/27/17 06:50 Globulin 3.3 gm/dL 12/27/17 06:50 Albumin/Globulin Ratio 1.2 (1.1-1.8) 12/27/17 06:50 Procalcitonin < 0.05 NG/ML (0.19-0.49) L 12/27/17 10:15 Venous Blood Potassium 4.4 mmol/L (3.6-5.2) 12/27/17 08:30 Urine Color Yellow (YELLOW) 12/27/17 08:00 Urine Appearance Clear (CLEAR) 12/27/17 08:00 Urine pH 6.0 (4.7-8.0) 12/27/17 08:00 Ur Specific [place] 1.020 (1.005-1.035) 12/27/17 08:00 Urine Protein Negative mg/dL (<30 mg/dL) 12/27/17 08:00 Urine Glucose (UA) Negative mg/dL (NEGATIVE) 12/27/17 08:00 Urine Ketones Negative mg/dL (NEGATIVE) 12/27/17 08:00 Urine Blood Negative (NEGATIVE) 12/27/17 08:00 Urine Nitrate Negative (NEGATIVE) 12/27/17 08:00 Urine Bilirubin Negative (NEGATIVE) 12/27/17 08:00 Urine Urobilinogen 0.2 E.U./dL (<1 E.U./dL) 12/27/17 08:00 Ur Leukocyte Esterase Negative Antony/uL (NEGATIVE) 12/27/17 08:00 Alcohol, Quantitative 311 mg/dL (0-10) H* 12/26/17 18:19 HIV 1&2 Ag/Ab, 4th Gen Nonreactive (Nonreactive) 12/27/17 10:00 Influenza Typ A,B (EIA) Negative for flu a/b (NEGATIVE) 12/27/17 09:45 Discharge Plan - Follow Up Plan Patient education suggested?: Yes Attending/Attestation - Attestation I have personally seen and examined this patient.: Yes I have fully participated in the care of the patient.: Yes I have reviewed all pertinent clinical information, including history, physical exam and plan: Yes Notes (Text): 12/27/17 57 year old male who was admitted for public alcohol intoxication and possible pneumonia. He was started on iv antibiotics, banana bag and ativan prn. Following day he was ambulating in hallways requesting to be discharged to follow up with oupatient doctor appointment. He was explained risks of signing out AMA but signed out against medical advice. He was counselled on alcohol abstinence. Cris Del Toro MD Hospitalist.
== END 2017-12-27 13:49 | disposition left against medical advice (07) | DRG 871 ==
LOC: ED 18:03 → ERH 21:00 → 2RNO 12-27 00:40
PROVIDERS: ADMIT Hospitalist; ATTEND Internal Medicine
DX: A41.9 Sepsis, unspecified organism (principal); J18.9 Pneumonia, unspecified organism; F10.129 Alcohol abuse with intoxication, unspecified; E11.9 Type 2 diabetes mellitus without complications; Y90.8 Blood alcohol level of 240 mg/100 ml or more; I12.9 Hypertensive chronic kidney disease with stage 1 through stage 4 chronic kidney disease, or unspecified chronic kidney disease; E11.22 Type 2 diabetes mellitus with diabetic chronic kidney disease; N18.9 Chronic kidney disease, unspecified; F17.210 Nicotine dependence, cigarettes, uncomplicated; R40.2412 Glasgow coma scale score 13-15, at arrival to emergency department

== ENCOUNTER 2018-01-12 00:49 | Emergency (ER) | payer MEDICARE ==
[2018-01-12 00:53] VITALS: BMI 29.2
[2018-01-12] MEDS ORDERED: TDAP Vaccine 0.5 mL Syr IM ONE (01:18)
--- NOTE | 2018-01-12 01:32 | ED PDOC ---
Arrival/HPI - General Time Seen by Provider: 01/12/18 01:01 Historian: Patient - History of Present Illness Narrative History of Present Illness (Text): 01/12/18 01:18 Veronica Gallardo is a 57 year old male, whose past medical history includes alcohol abuse, who presents to the Emergency department for alcohol intoxication status post fall at home. Patient admits to drinking alcohol this evening and had an unwitnessed fall. Patient hit his left forehead on the floor and sustained a laceration. Family state they came in to room and found the patient, deny any loss of consciousness or any other complaints. Symptom Onset: Sudden Symptom Course: Unchanged Activities at Onset: Light Context: Home Past Medical History - Provider Review Nursing Documentation Reviewed: Yes - Past History Past History: No Previous - Infectious Disease Hx of Infectious Diseases: None - Tetanus Immunization Tetanus Immunization: Unknown - Past Medical History Past Medical History: No Previous - Cardiac Hx Cardiac Disorders: No - Pulmonary Hx Respiratory Disorders: No - Neurological Hx Neurological Disorder: No - HEENT Hx HEENT Disorder: No - Renal Hx Renal Disorder: No - Endocrine/Metabolic Hx Diabetes Mellitus Type 2: Yes - Hematological/Oncological Hx Blood Disorders: No - Integumentary Hx Dermatological Disorder: No - Musculoskeletal/Rheumatological Hx Falls: Yes - Gastrointestinal Hx Gastrointestinal Disorders: No - Genitourinary/Gynecological Hx Genitourinary Disorders: No - Psychiatric Hx Psychophysiologic Disorder: No Hx Substance Use: No (denies) - Past Surgical History Past Surgical History: Unable to Obtain - Surgical History Hx Orthopedic Surgery: Yes (back surgery x2) - Anesthesia Hx Anesthesia: Yes Hx Anesthesia Reactions: No Hx Malignant Hyperthermia: No - Suicidal Assessment Feels Threatened In Home Enviroment: No Family/Social History - Physician Review Nursing Documentation Reviewed: Yes Family/Social History: Unknown Family HX Smoking Status: Unknown If Ever Smoked Hx Alcohol Use: Yes Hx Substance Use: No (denies) Hx Substance Use Treatment: No Allergies/Home Meds Allergies/Adverse Reactions: Allergies No Known Allergies Allergy (Verified 01/12/18 00:54) Home Medications: Home Meds Medication Instructions Recorded Confirmed RX: No Known Home Med 01/12/18 01/12/18 Review of Systems - Physician Review All systems were reviewed & negative as marked: Yes - Review of Systems Constitutional: absent: Fevers Respiratory: absent: SOB, Cough Cardiovascular: absent: Chest Pain Gastrointestinal: absent: Abdominal Pain, Diarrhea, Nausea, Vomiting Genitourinary Male: absent: Dysuria, Frequency, Hematuria, Urinary Output Changes Musculoskeletal: absent: Back Pain, Neck Pain Skin: Laceration Psychiatric: Other (+alcohol intoxcation) Physical Exam Vital Signs Reviewed: Yes Temperature: Afebrile Blood Pressure: Normal Pulse: Regular Respiratory Rate: Normal Appearance: Positive for: Well-Appearing, Non-Toxic, Comfortable Pain Distress: None Mental Status: Positive for: other (Intoxicars) - Systems Exam Head: Present: Normocephalic, Laceration (1 cm laceration to left forehead) Pupils: Present: PERRL Extroacular Muscles: Present: EOMI Conjunctiva: Present: Normal Mouth: Present: Moist Mucous Membranes Neck: Present: Normal Range of Motion. No: Meningeal Signs, MIDLINE TENDERNESS, Paraspinal Tenderness Respiratory/Chest: Present: Clear to Auscultation, Good Air Exchange. No: Respiratory Distress, Accessory Muscle Use Cardiovascular: Present: Regular Rate and Rhythm, Normal S1, S2. No: Murmurs Abdomen: No: Tenderness, Distention, Peritoneal Signs Back: Present: Normal Inspection. No: CVA Tenderness, Midline Tenderness, Paraspinal Tenderness Upper Extremity: Present: Normal Inspection. No: Cyanosis, Edema Lower Extremity: Present: Normal Inspection. No: Edema Neurological: Present: GCS=15, CN II-XII Intact, Speech Normal Skin: Present: Warm, Dry, Normal Color. No: Rashes Psychiatric: Present: Alert, Oriented x 3, Normal Insight, Normal Concentration Medical Decision Making ED Course and Treatment: 01/12/18 01:18 Impression: 57 year old male brought in for alcohol intoxication s/p fall. Plan: -- CT Head w/o contrast -- TDAP -- Dermabond/Laceration Repair -- Reassess and disposition Progress Notes: PROCEDURE: LACERATION REPAIR Performed by PA student under my supervision. Location: Left forehead Length: 1 cm Description: clean wound edges,no foreign bodies Distal CMS: Normal. No deficits. Neurovascularly intact. Preparation: The wound was cleaned with NS and Betadyne. The area was prepped and draped in the usual sterile fashion. Exploration: The wound was explored and *no foreign bodies were found. Procedure: The wound was closed with Dermabond. There was good approximation. Post-Procedure: Good closure and hemostasis. The patient tolerated the procedure well and there were no complications. CSM remains intact. Post procedure dressing applied. 01/12/18 03:17 CT Head Findings: The ventricles and sulci are symmetric bilaterally. There is encephalomalacia in the frontal lobes bilaterally. There is no evidence of acute hemorrhage or infarct. There is no midline shift, mass effect, or extra-axial fluid collection. The osseous structures are unremarkable. The visualized paranasal sinuses and mastoid air cells are clear. Impression: 1. No acute intracranial hemorrhage or infarct. 2. Chronic encephalomalacia in the frontal lobes bilaterally. If there is further clinical concern, MRI could be performed. Electronically signed on Jan 12, 2018 3:12:45 AM EST by: Steven Mai M.D., YOLANDA Certified By ABR & CBC[facility] Fellowship Trained MRI and CT Specialis - RAD Interpretation Radiology Orders: 01/12/18 01:31 HEAD W/O CONTRAST [CT] Stat Scientific Specialist: Radiologist - Medication Orders Current Medication Orders: Discontinued Medications Tetanus/Reduced Diphtheria/Acell Pertussis (Boostrix Vaccine Inj) 0.5 ml IM .ONCE ONE Stop: 01/12/18 01:19 Last Admin: 01/12/18 01:24 Dose: 0.5 ml - Scribe Statement The provider has reviewed the documentation as recorded by the Sneha Yeung Provider Scribe Attestation: All medical record entries made by the Scribe were at my direction and personally dictated by me. I have reviewed the chart and agree that the record accurately reflects my personal performance of the history, physical exam, medical decision making, and the department course for this patient. I have also personally directed, reviewed, and agree with the discharge instructions and disposition. Disposition/Present on Arrival - Present on Arrival Any Indicators Present on Arrival: No History of DVT/PE: No History of Uncontrolled Diabetes: No Urinary Catheter: No History Surgical Site Infection Following: None - Disposition Have Diagnosis and Disposition been Completed?: Yes Diagnosis: Facial laceration, Alcohol abuse Disposition: HOME/ ROUTINE Disposition Time: 03:20 Patient Problems: Current Active Problems Problem Status Onset Alcohol abuse Acute Facial laceration Acute Condition: IMPROVED Discharge Instructions (ExitCare): Laceration Repair With Glue (DC), Alcohol Abuse and Alcoholism (DC) Additional Instructions: VERONICA GALLARDO, thank you for letting us take care of you today. The emergency medical care you received today was directed at your acute symptoms. If you were prescribed any medication, please fill it and take as directed. It may take several days for your symptoms to resolve. Return to the Emergency Department if your symptoms worsen, do not improve, or if you have any other problems. Please contact your doctor or call one of the physicians/clinics you have been referred to that are listed on the Patient Visit Information form that is included in your discharge packet. Bring any paperwork you were given at discharge with you along with any medications you are taking to your follow up visit. Our treatment cannot replace ongoing medical care by a primary care provider outside of the emergency department. Thank you for allowing the [facility] team to be part of your care today. Keep laceration clean and dry for 5 days for complete healing. Follow up with our clinic or your primary care doctor for outpatient care. Referrals: [facility] [Outside] - Follow up with primary Anais Heredia MD [Medical Doctor] - Follow up with primary Forms: [employer] (Italian)
[2018-01-12 06:31] VITALS: RESP 19
[2018-01-12 08:42] VITALS: BP 126/53; PULSE 72; TEMP 98
[2018-01-12 08:45] VITALS: O2SAT 100
--- NOTE | 2018-01-12 08:47 | CT ---
Date of service: 01/12/2018 PROCEDURE: CT HEAD WITHOUT CONTRAST. HISTORY: s/p fall - r/o ICH and fx COMPARISON: Noncontrast head CT performed 10/19/17, maxillofacial CT performed 10/19/17 TECHNIQUE: Axial computed tomography images were obtained through the head/brain without intravenous contrast. Radiation dose: Total exam DLP = 989.06 mGy-cm. This CT exam was performed using one or more of the following dose reduction techniques: Automated exposure control, adjustment of the mA and/or kV according to patient size, and/or use of iterative reconstruction technique. FINDINGS: HEMORRHAGE: No intracranial hemorrhage. BRAIN: Diffuse atrophy with prominence of the ventricles and sulci noted. No mass effect or edema. Intracranial atherosclerosis. Bifrontal encephalomalacia. Scattered periventricular and subcortical white matter hypodensities, which are nonspecific, but often seen with chronic microvascular ischemic disease. Please note that MRI with diffusion imaging is more sensitive in the detection of acute ischemic event. VENTRICLES: No hydrocephalus. CALVARIUM: Unremarkable. PARANASAL SINUSES: Mucosal thickening of the right maxillary sinus. The remainder the visualized paranasal sinuses appear clear. MASTOID AIR CELLS: Unremarkable as visualized. No inflammatory changes. OTHER FINDINGS: Nasal bone fracture deformities appear chronic. IMPRESSION: Bifrontal encephalomalacia. Nonspecific white matter changes. Chronic appearing bilateral nasal bone fracture deformities. Preliminary impression was provided by [facility].
== END 2018-01-12 08:43 | disposition home or self-care (01) ==
LOC: ED 00:49
DX: S01.81XA Laceration without foreign body of other part of head, initial encounter (principal); W19.XXXA Unspecified fall, initial encounter; Y92.009 Unspecified place in unspecified non-institutional (private) residence as the place of occurrence of the external cause; F10.10 Alcohol abuse, uncomplicated; Z23 Encounter for immunization

== ENCOUNTER 2018-02-01 19:17 | Emergency (ER) | payer MEDICARE ==
[2018-02-01 19:17] VITALS: BMI 29.2
[2018-02-01 19:31] VITALS: RESP 18; TEMP 99.1
[2018-02-01 19:37] VITALS: O2SAT 96
--- NOTE | 2018-02-01 20:12 | ED PDOC ---
Arrival/HPI - General Chief Complaint: Alcohol Ingestion Time Seen by Provider: 02/01/18 19:21 Historian: Patient - History of Present Illness Narrative History of Present Illness (Text): 02/01/18 20:14 A 57 year old male, whose past medical history includes EtOH abuse, presents to the emergency department EMS for possible alcohol intoxication.Patient appears sleepy.States he had been drinking alcohol much earlier.Does complain of some left sided chest discomfort.No sob.Denies drug use. Past Medical History - Provider Review Nursing Documentation Reviewed: Yes - Past History Past History: No Previous - Infectious Disease Hx of Infectious Diseases: None - Tetanus Immunization Tetanus Immunization: Unknown - Past Medical History Past Medical History: No Previous - Cardiac Hx Cardiac Disorders: No - Pulmonary Hx Respiratory Disorders: No - Neurological Hx Neurological Disorder: No - HEENT Hx HEENT Disorder: No - Renal Hx Renal Disorder: No - Endocrine/Metabolic Hx Diabetes Mellitus Type 2: Yes - Hematological/Oncological Hx Blood Disorders: No - Integumentary Hx Dermatological Disorder: No - Musculoskeletal/Rheumatological Hx Falls: Yes - Gastrointestinal Hx Gastrointestinal Disorders: No - Genitourinary/Gynecological Hx Genitourinary Disorders: No - Psychiatric Hx Psychophysiologic Disorder: No Hx Substance Use: No (denies) - Past Surgical History Past Surgical History: Unable to Obtain - Surgical History Hx Orthopedic Surgery: Yes (back surgery x2) - Anesthesia Hx Anesthesia: Yes Hx Anesthesia Reactions: No Hx Malignant Hyperthermia: No - Suicidal Assessment Feels Threatened In Home Enviroment: No Family/Social History - Physician Review Nursing Documentation Reviewed: Yes Family/Social History: No Known Family HX Smoking Status: Unknown If Ever Smoked Hx Alcohol Use: Yes Hx Substance Use: No (denies) Hx Substance Use Treatment: No Allergies/Home Meds Allergies/Adverse Reactions: Allergies No Known Allergies Allergy (Verified 01/12/18 00:54) Home Medications: Home Meds Medication Instructions Recorded Confirmed No Known Home Med 01/12/18 01/12/18 Review of Systems - Review of Systems Systems not reviewed;Unavailable: Intoxicated Physical Exam Vital Signs Reviewed: Yes Vital Signs Temp Pulse Resp BP Pulse Ox 02/01/18 19:31 99.1 F 106 H 18 131/83 96 Temperature: Afebrile Blood Pressure: Normal Pulse: Regular Respiratory Rate: Normal Pain Distress: None Mental Status: Positive for: Alert and Oriented X 3 Finger Stick Blood Glucose: 93 - Systems Exam Head: Present: Atraumatic, Normocephalic Pupils: Present: PERRL Extroacular Muscles: Present: EOMI Conjunctiva: Present: Normal Mouth: Present: Moist Mucous Membranes Pharnyx: Present: Normal Neck: Present: Normal Range of Motion Respiratory/Chest: Present: Clear to Auscultation, Good Air Exchange. No: Respiratory Distress, Accessory Muscle Use Cardiovascular: Present: Regular Rate and Rhythm, Normal S1, S2. No: Murmurs Abdomen: No: Tenderness, Distention, Peritoneal Signs Back: Present: Normal Inspection Upper Extremity: Present: Normal Inspection. No: Cyanosis, Edema Lower Extremity: Present: Normal Inspection. No: Edema Neurological: Present: GCS=15, CN II-XII Intact, Speech Normal, Motor Func Grossly Intact, Normal Sensory Function Skin: Present: Warm, Dry, Normal Color. No: Rashes Psychiatric: Present: Alert, Oriented x 3 Medical Decision Making ED Course and Treatment: 02/01/18 20:14 Impression: 57 year old male with possible intoxication transient chest pain. Plan: -- EKG -- Chest X-ray -- Labs -- Reassess and disposition Progress Notes: 02/01/18 23:54 Case discussed with medical residents and Dr. Palomares. Accepts pt into his service. - RAD Interpretation Narrative RAD Interpretations (Text): 02/01/18 23:00 CXR no acute process Radiology Orders: 02/01/18 19:25 CHEST PORTABLE [RAD] Stat Armature Varnisher: ED Physician - EKG Interpretation EKG Interpretation (Text): 02/01/18 20:00EKG- NSR@ 100,no acute changes Interpreted by ED Physician: Yes Type: 12 lead EKG - Scribe Statement The provider has reviewed the documentation as recorded by the Sneha Lewis Provider Scribe Attestation: All medical record entries made by the Sneha were at my direction and personally dictated by me. I have reviewed the chart and agree that the record accurately reflects my personal performance of the history, physical exam, medical decision making, and the department course for this patient. I have also personally directed, reviewed, and agree with the discharge instructions and disposition. Disposition/Present on Arrival - Present on Arrival Any Indicators Present on Arrival: No History of DVT/PE: No History of Uncontrolled Diabetes: No Urinary Catheter: No History of Decub. Ulcer: No History Surgical Site Infection Following: None - Disposition Have Diagnosis and Disposition been Completed?: Yes Diagnosis: Chest pain Disposition: HOSPITALIZED Disposition Time: 23:46 Patient Plan: Observation Patient Problems: Current Active Problems Problem Status Onset Chest pain Acute Condition: STABLE Discharge Instructions (ExitCare): Chest Pain (ED) Referrals: Promise Buckner MD [Primary Care Provider] - Follow up with primary Forms: [employer] (Syrian)
[2018-02-01 20:28] LABS: HEMOGLOBIN 14.2 g/dL (14.0-18.0); MEAN CORPUSCULAR HEMOGLOBIN 28.5 pg (25.0-35.0); MEAN CORPUSCULAR HGB CONC 32.4 g/dl (31.0-37.0); MEAN PLATELET VOLUME 10.1 fl (7.0-11.0); RBC 4.98 10^6/uL (3.5-6.1); RED CELL DISTRIBUTION WIDTH 13.9 % (11.5-14.5); WHITE BLOOD COUNT 6.7 10^3/uL (4.5-11.0)
[2018-02-01 20:33] LABS: ALB/GLOB RATIO 1.1 (1.1-1.8); ALT/SGPT 41 U/L (7-56); AST/SGOT 31 U/L (17-59); BLOOD UREA NITROGEN 19 mg/dL (7-21); CALCIUM 8.8 mg/dL (8.4-10.5); GFR NON-AFRICAN AMERICAN > 60
[2018-02-01 20:43] LABS: TROPONIN I < 0.01 ng/mL
[2018-02-02 00:50] VITALS: BP 132/86; PULSE 80
--- NOTE | 2018-02-02 04:58 | CP.PCM.HP ---
<MadiBlasdeondre Angelo - Last Filed: 02/02/18 05:02> History of Present Illness - History of Present Illness History of Present Illness: Pt is a 57 yo male, with a PMH of EtOH abuse who presents to the ED via EMS for possible alcohol intoxication. States he had been drinking alcohol much earlier. Does complain of some left sided chest discomfort. PMH: DM, depression, HTN, CKD, alcohol abuse and drug abuse PSH: Back surgery, spinal canal rods SH: alcohol use, denies illicit substance use, light smoker, lives in [place] Allergies: denies Present on Admission - Present on Admission Any Indicators Present on Admission: No Past Patient History - Infectious Disease Hx of Infectious Diseases: None - Tetanus Immunizations Tetanus Immunization: Unknown - Past Medical History & Family History Past Medical History?: Yes - Past Social History Smoking Status: Unknown If Ever Smoked - CARDIAC Hx Cardiac Disorders: No - PULMONARY Hx Respiratory Disorders: No - NEUROLOGICAL Hx Neurological Disorder: No - HEENT Hx HEENT Problems: No - RENAL Hx Chronic Kidney Disease: No - ENDOCRINE/METABOLIC Hx Diabetes Mellitus Type 2: Yes - HEMATOLOGICAL/ONCOLOGICAL Hx Blood Disorders: No - INTEGUMENTARY Hx Dermatological Problems: No - MUSCULOSKELETAL/RHEUMATOLOGICAL Hx Falls: Yes - GASTROINTESTINAL Hx Gastrointestinal Disorders: No - GENITOURINARY/GYNECOLOGICAL Hx Genitourinary Disorders: No - PSYCHIATRIC Hx Psychophysiologic Disorder: No Hx Substance Use: No (denies) - SURGICAL HISTORY Hx Orthopedic Surgery: Yes (back surgery x2) - ANESTHESIA Hx Anesthesia: Yes Hx Anesthesia Reactions: No Hx Malignant Hyperthermia: No Meds Allergies/Adverse Reactions: Allergies Allergy/AdvReac Type Severity Reaction Status Date / Time No Known Allergies Allergy Verified 01/12/18 00:54 Physical Exam - Constitutional Additional comments: pt signed out AMA by the time he was seen in the ED Results - Vital Signs Recent Vital Signs: Last Vital Signs Temp 99.1 F 02/01/18 19:31 Pulse 80 02/02/18 00:49 Resp 18 02/02/18 00:49 BP 132/86 02/02/18 00:49 Pulse Ox 96 02/02/18 00:49 - Labs Result Diagrams: 02/01/18 19:55 02/01/18 19:55 Labs: Laboratory Results - last 24 hr 02/01/18 02/01/18 02/01/18 19:25 19:55 19:55 WBC 6.7 D RBC 4.98 Hgb 14.2 Hct 43.8 MCV 88.0 MCH 28.5 MCHC 32.4 RDW 13.9 Plt Count 226 MPV 10.1 Sodium 139 Potassium 4.1 Chloride 107 Carbon Dioxide 27 Anion Gap 9 L BUN 19 Creatinine 0.7 L Est GFR ( Amer) > 60 Est GFR (Non-Af Amer) > 60 POC Glucose (mg/dL) 93 Random Glucose 100 Calcium 8.8 Total Bilirubin 0.3 AST 31 ALT 41 Alkaline Phosphatase 82 Lactate Dehydrogenase 422 Total Creatine Kinase 41 Troponin I < 0.01 Total Protein 7.5 Albumin 4.0 Globulin 3.6 Albumin/Globulin Ratio 1.1 Alcohol, Quantitative 02/01/18 19:55 WBC RBC Hgb Hct MCV MCH MCHC RDW Plt Count MPV Sodium Potassium Chloride Carbon Dioxide Anion Gap BUN Creatinine Est GFR ( Amer) Est GFR (Non-Af Amer) POC Glucose (mg/dL) Random Glucose Calcium Total Bilirubin AST ALT Alkaline Phosphatase Lactate Dehydrogenase Total Creatine Kinase Troponin I Total Protein Albumin Globulin Albumin/Globulin Ratio Alcohol, Quantitative < 10 Assessment & Plan - Assessment and Plan (Free Text) Assessment: 57 yo male, with a PMH of EtOH abuse who presents to the ED via EMS for possible alcohol intoxication. States he had been drinking alcohol much earlier. Does complain of some left sided chest discomfort. Plan: pt signed out AMA - Date & Time Date: 02/02/18 Time: 04:58 <Nikki Novak - Last Filed: 02/02/18 06:27> Present on Admission - Present on Admission Any Indicators Present on Admission: No History of DVT/PE: No History of Uncontrolled Diabetes: No Urinary Catheter: No Decubitus Ulcer Present: No Results - Vital Signs Recent Vital Signs: Last Vital Signs Temp 99.1 F 02/01/18 19:31 Pulse 80 02/02/18 00:49 Resp 18 02/02/18 00:49 BP 132/86 02/02/18 00:49 Pulse Ox 96 02/02/18 00:49 - Labs Result Diagrams: 02/01/18 19:55 02/01/18 19:55 Labs: Laboratory Results - last 24 hr 02/01/18 02/01/18 02/01/18 19:25 19:55 19:55 WBC 6.7 D RBC 4.98 Hgb 14.2 Hct 43.8 MCV 88.0 MCH 28.5 MCHC 32.4 RDW 13.9 Plt Count 226 MPV 10.1 Sodium 139 Potassium 4.1 Chloride 107 Carbon Dioxide 27 Anion Gap 9 L BUN 19 Creatinine 0.7 L Est GFR ( Amer) > 60 Est GFR (Non-Af Amer) > 60 POC Glucose (mg/dL) 93 Random Glucose 100 Calcium 8.8 Total Bilirubin 0.3 AST 31 ALT 41 Alkaline Phosphatase 82 Lactate Dehydrogenase 422 Total Creatine Kinase 41 Troponin I < 0.01 Total Protein 7.5 Albumin 4.0 Globulin 3.6 Albumin/Globulin Ratio 1.1 Alcohol, Quantitative 02/01/18 19:55 WBC RBC Hgb Hct MCV MCH MCHC RDW Plt Count MPV Sodium Potassium Chloride Carbon Dioxide Anion Gap BUN Creatinine Est GFR ( Amer) Est GFR (Non-Af Amer) POC Glucose (mg/dL) Random Glucose Calcium Total Bilirubin AST ALT Alkaline Phosphatase Lactate Dehydrogenase Total Creatine Kinase Troponin I Total Protein Albumin Globulin Albumin/Globulin Ratio Alcohol, Quantitative < 10 Attending/Attestation - Attestation I have personally seen and examined this patient.: Yes I have fully participated in the care of the patient.: Yes I have reviewed all pertinent clinical information: Yes Notes (Text): 02/02/18 06:26 Patient was seen when he was in the PES room in the ER. Agree with history, physical examination, assessment and plan.
--- NOTE | 2018-02-02 09:55 | RAD ---
HISTORY: medical clearance COMPARISON: Chest x-ray performed 12/26/17 TECHNIQUE: Chest, one view. FINDINGS: Examination limited by habitus. LUNGS: No focal consolidation. Please note that chest x-ray has limited sensitivity for the detection of pulmonary masses. PLEURA: No significant pleural effusion identified. No definite pneumothorax . CARDIOVASCULAR: Heart size appears within normal limits. Ectatic aorta. OSSEOUS STRUCTURES: No acute osseous abnormality identified. VISUALIZED UPPER ABDOMEN: Unremarkable. OTHER FINDINGS: None. IMPRESSION: No focal consolidation.
--- NOTE | 2018-02-02 18:50 | CARD ---
APPROVED REPORT Date of service: 02/01/2018 EKG Measurement Heart [id number] <Conclusion> Normal sinus rhythm Normal ECG
== END 2018-02-02 01:20 | disposition left against medical advice (07) ==
LOC: ED 19:17 → ERH 02-02 00:20 → UNDOADMOB 02-02 00:20 → ED 02-02 01:20
DX: R07.9 Chest pain, unspecified (principal)
CPT/HCPCS: 71045; 80053; 82550; 82948; 83615; 84484; 85027; 93005; 99284; G0480

== ENCOUNTER 2018-02-22 18:34 | Emergency (ER) | payer MEDICARE ==
[2018-02-22 18:34] VITALS: BMI 29.2
--- NOTE | 2018-02-22 19:03 | ED PDOC ---
Arrival/HPI - General Chief Complaint: Alcohol Ingestion Historian: Patient - History of Present Illness Narrative History of Present Illness (Text): 02/22/18 18:59 57 y/o male, pmh including copd, nkda, biba for etoh in public x 1 day. Pt. 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 Past Medical History - Provider Review Nursing Documentation Reviewed: Yes - Past History Past History: No Previous - Infectious Disease Hx of Infectious Diseases: None - Tetanus Immunization Tetanus Immunization: Unknown - Past Medical History Past Medical History: No Previous - Cardiac Hx Cardiac Disorders: No - Pulmonary Hx Respiratory Disorders: No - HEENT Hx HEENT Disorder: No - Renal Hx Renal Disorder: No - Endocrine/Metabolic Hx Diabetes Mellitus Type 2: Yes - Hematological/Oncological Hx Blood Disorders: No - Integumentary Hx Dermatological Disorder: No - Musculoskeletal/Rheumatological Hx Falls: Yes - Gastrointestinal Hx Gastrointestinal Disorders: No - Genitourinary/Gynecological Hx Genitourinary Disorders: No - Psychiatric Hx Psychophysiologic Disorder: No Hx Substance Use: No (denies) - Past Surgical History Past Surgical History: Unable to Obtain - Surgical History Hx Orthopedic Surgery: Yes (back surgery x2) - Anesthesia Hx Anesthesia: Yes Hx Anesthesia Reactions: No Hx Malignant Hyperthermia: No - Suicidal Assessment Feels Threatened In Home Enviroment: No Family/Social History - Physician Review Nursing Documentation Reviewed: Yes Family/Social History: Unknown Family HX Smoking Status: Unknown If Ever Smoked Hx Alcohol Use: Yes Hx Substance Use: No (denies) Hx Substance Use Treatment: No Allergies/Home Meds Allergies/Adverse Reactions: Allergies No Known Allergies Allergy (Verified 01/12/18 00:54) Home Medications: Home Meds Medication Instructions Recorded Confirmed No Known Home Med 01/12/18 02/07/18 Review of Systems - Review of Systems Constitutional: absent: Fatigue, Fevers Eyes: absent: Vision Changes ENT: absent: Hearing Changes Respiratory: absent: SOB, Cough Cardiovascular: absent: Chest Pain Gastrointestinal: absent: Abdominal Pain, Diarrhea, Nausea Skin: absent: Rash, Pruritis Neurological: absent: Headache, Dizziness Psychiatric: absent: Anxiety, Depression, Suicidal Ideation Physical Exam Vital Signs Reviewed: Yes Vital Signs Temp Pulse Resp BP Pulse Ox 02/22/18 18:58 98.1 F 86 16 106/75 96 Temperature: Afebrile Blood Pressure: Normal Pulse: Regular Respiratory Rate: Normal Appearance: Positive for: Well-Appearing, Non-Toxic, Comfortable Pain Distress: None Mental Status: Positive for: Alert and Oriented X 3 Finger Stick Blood Glucose: 101 - Systems Exam Head: Present: Atraumatic, Normocephalic Pupils: Present: PERRL Extroacular Muscles: Present: EOMI Conjunctiva: Present: Normal Mouth: Present: Moist Mucous Membranes Neck: Present: Normal Range of Motion Respiratory/Chest: Present: Wheezes (Lt. sided lung), Decreased Breath Sounds (Lt. sided lung), Rhonchi (Lt. sided lung). No: Respiratory Distress, Accessory Muscle Use, Rales, Retracting, Tachypneic, Tender to Palpation Cardiovascular: Present: Regular Rate and Rhythm, Normal S1, S2. No: Murmurs Abdomen: No: Tenderness, Distention, Peritoneal Signs Back: Present: Normal Inspection Upper Extremity: Present: Normal Inspection, Normal ROM, Neurovascularly Intact, Capillary Refill < 2s. No: Cyanosis, Edema, Tenderness, Swelling, Deformity Lower Extremity: Present: Normal Inspection, NORMAL PULSES, Normal ROM, Neurovascularly Intact, Capillary Refill < 2 s. No: Edema, Tenderness, Swelling, Deformity Neurological: Present: GCS=15, CN II-XII Intact, Speech Normal, Motor Func Grossly Intact Skin: Present: Warm, Dry, Normal Color. No: Rashes Psychiatric: Present: Alert, Oriented x 3, Normal Insight, Normal Concentration Medical Decision Making ED Course and Treatment: 02/22/18 19:05 -FS 101 -Duoneb x 2 -Chest xray -Will monitor until sober 02/22/18 19:40 -FS 116 02/22/18 20:01 -Labs and IVF ordered. 02/22/18 20:29 -Pt. 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 02/22/18 20:53 -Chest xray No acute cardiopulmonary pathology is evident. -Labs are non-significant -Mg 2.3, milldly elevated, normal bun/creatine -VBG Ph 7.30 from 7.29 and lactic acid 2.8 from 4.2 -IVF ordered and will repeat lab work. 02/22/18 21:14 -Pt. refused repeat blood work. 02/23/18 01:44 -Pt. woke up, put on his clothes, walking with normal gait and posture, eloped from the ER. I went to the bedside and he is not at the stretcher, IV removed. - RAD Interpretation Radiology Orders: EXAM: CR Chest, 1 View. CLINICAL HISTORY: Medical clearance ETOH COMPARISON: None provided. FINDINGS: LUNGS: The lungs appear clear. PLEURAL SPACES: No evidence of pleural effusion or pneumothorax. MEDIASTINUM: The cardiomediastinal silhouette is within normal limits. BONES: No aggressive appearing osseous lesion seen. IMPRESSION: No acute cardiopulmonary pathology is evident. Electronically signed on Feb 22, 2018 8:21:26 PM EST by: Steven Mai M.D., YOLANDA Certified By [facility] Fellowship Trained MRI and CT Specialist Vacuum Cleaner Repairer: Radiologist - PA / COMPUTER SYSTEMS DESIGN ANALYST / Resident Statement MD/DO has reviewed & agrees with the documentation as recorded. Disposition/Present on Arrival - Present on Arrival Any Indicators Present on Arrival: No History of DVT/PE: No History of Uncontrolled Diabetes: No Urinary Catheter: No History of Decub. Ulcer: No History Surgical Site Infection Following: None - Disposition Have Diagnosis and Disposition been Completed?: Yes Diagnosis: Alcohol intoxication, COPD (chronic obstructive pulmonary disease), Non- compliance Disposition: ELOPEMENT - ER ONLY Disposition Time: 19:06 Patient Problems: Current Active Problems Problem Status Onset Alcohol intoxication Acute COPD (chronic obstructive pulmonary disease) Acute Condition: GOOD Forms: Strut (Sinhala)
[2018-02-22] MEDS ORDERED: Albuterol-Ipratrop 3 mg / 0.5 (3 ml) UD IH STA (19:06)
[2018-02-22 19:51] VITALS: RESP 18
[2018-02-22] MEDS ORDERED: Multivitamin (MVI) 10 ML, Thiamine 100 MG, Folic Acid 1 MG in Dextrose 5% In Water 1,00... IV ONE (20:00)
[2018-02-22 20:29] LABS: BASO # 0.07 K/mm3 (0.0-2.0); BASO % 1.2 % (0.0-3.0); EOS # 0.4 (0.0-0.7); EOS % 7.7 % (1.5-5.0); GRAN # 2.18 (1.4-6.5); GRAN % 38.4 % (50.0-68.0); HEMOGLOBIN 14.6 g/dL (14.0-18.0); LYMPH # 2.7 (1.2-3.4); LYMPH % 46.7 % (22.0-35.0); MEAN CELL VOLUME 87.2 fl (80.0-105.0); MEAN CORPUSCULAR HEMOGLOBIN 28.7 pg (25.0-35.0); MEAN CORPUSCULAR HGB CONC 32.9 g/dl (31.0-37.0); MEAN PLATELET VOLUME 10.1 fl (7.0-11.0); MONO # 0.3 (0.1-0.6); RBC 5.09 10^6/uL (3.5-6.1); RED CELL DISTRIBUTION WIDTH 13.6 % (11.5-14.5); VENOUS BLOOD GAS BASE EXCESS -1.6 mmol/L (0.0-2.0); VENOUS BLOOD GAS PO2 80 mm/Hg (30-55); WHITE BLOOD COUNT 5.7 10^3/uL (4.5-11.0)
[2018-02-22] MEDS ORDERED: Sodium Chloride 0.9% 1,000 ML IV STA (20:43)
[2018-02-22 20:47] LABS: ALB/GLOB RATIO 1.3 (1.1-1.8); ALBUMIN 4.3 g/dL (3.0-4.8); ALT/SGPT 33 U/L (7-56); AST/SGOT 26 U/L (17-59); BLOOD UREA NITROGEN 13 mg/dL (7-21); CALCIUM 8.9 mg/dL (8.4-10.5); GFR NON-AFRICAN AMERICAN > 60
[2018-02-23 01:42] VITALS: BP 106/80; PULSE 88; TEMP 98; O2SAT 95
--- NOTE | 2018-02-23 10:10 | RAD ---
Date of service: 02/22/2018 HISTORY: medical clearance COMPARISON: 04/04/2017 FINDINGS: LUNGS: No active pulmonary disease. PLEURA: No significant pleural effusion identified, no pneumothorax apparent. CARDIOVASCULAR: Mild aortic calcification and tortuosity Normal cardiac size. No pulmonary vascular congestion. OSSEOUS STRUCTURES: No significant abnormalities. VISUALIZED UPPER ABDOMEN: Normal. OTHER FINDINGS: None. IMPRESSION: No active disease.
== END 2018-02-23 01:33 | disposition left against medical advice (07) ==
LOC: ED 18:34
DX: J44.9 Chronic obstructive pulmonary disease, unspecified (principal); F10.129 Alcohol abuse with intoxication, unspecified; Z91.19 Patient's noncompliance with other medical treatment and regimen; E11.9 Type 2 diabetes mellitus without complications
CPT/HCPCS: 71045; 80053; 82803; 82948; 83735; 85025; 94640; 96374; 96375; 99283; J2060; J2930; J3411; J7030; J7070